=== PATIENT | female | born 1960 | race Caucasian/White ===

== ENCOUNTER 2020-02-04 09:10 | Outpatient (REF) | payer BC, OTHER, SELFPAY ==
[2020-02-04 12:00] LABS: Alanine Aminotransferase 19 U/L (0-31); Alkaline Phosphatase 93 U/L (39-117); Anion Gap 14 (12-20); Aspartate Amino Transferase 20 U/L (5-31); Bilirubin Total 1.4 mg/dL (0.0-1.0); Blood Urea Nitrogen 18 mg/dL (9-16); Calcium 9.3 mg/dL (8.4-10.2); Carbon Dioxide 25 mmol/L (22-29); Chloride 107 mmol/L (96-108); Cholesterol 170 mg/dL; Estimated Glomerular Filt Rate 57; Glucose Fasting 86 mg/dL (60-99); HDL Cholesterol 40 mg/dL; LDL Cholesterol Calculated 98 mg/dl; Potassium 4.3 mmol/l (3.3-5.1); Sodium 142 mmol/L (135-145); Total Protein 7.2 g/dL (6.5-8.0); Triglycerides 162 mg/dL; Uric Acid 7.2 mg/dL (2.4-5.7)
== END 2020-02-04 09:11 | disposition home or self-care (01) ==
LOC: HO.HMGCLDS 09:10
PROVIDERS: PCP Internal Medicine; Visit Provider Internal Medicine
DX: E78.5 Hyperlipidemia, unspecified (principal); Z00.01 Encounter for general adult medical examination with abnormal findings; F31.9 Bipolar disorder, unspecified; Z87.39 Personal history of other diseases of the musculoskeletal system and connective tissue; Z78.0 Asymptomatic menopausal state
CPT/HCPCS: 80053; 80061; 82306; 84550

== ENCOUNTER 2020-03-16 08:52 | Outpatient (REF) | payer BC, SELFPAY ==
[2020-03-16 12:03] LABS: Alanine Aminotransferase 37 U/L (0-31); Albumin Level 4.4 g/dL (3.5-5.0); Alkaline Phosphatase 92 U/L (39-117); Anion Gap 13 (12-20); Aspartate Amino Transferase 30 U/L (5-31); Blood Urea Nitrogen 22 mg/dL (9-16); Calcium 9.8 mg/dL (8.4-10.2); Carbon Dioxide 26 mmol/L (22-29); Chloride 108 mmol/L (96-108); Cholesterol 230 mg/dL; Estimated Glomerular Filt Rate 54; Glucose Fasting 92 mg/dL (60-99); HDL Cholesterol 44 mg/dL; LDL Cholesterol Calculated 148 mg/dl; Potassium 4.3 mmol/l (3.3-5.1); Sodium 143 mmol/L (135-145); Total Protein 7.6 g/dL (6.5-8.0); Triglycerides 192 mg/dL; Uric Acid 6.8 mg/dL (2.4-5.7)
[2020-03-16 12:10] LABS: Vitamin D 25-OH Total 20.4 ng/mL (>30)
== END 2020-03-16 08:53 | disposition home or self-care (01) ==
LOC: HO.HMGCLDS 08:52
PROVIDERS: PCP Internal Medicine; Visit Provider Internal Medicine
DX: E55.9 Vitamin D deficiency, unspecified (principal); E78.5 Hyperlipidemia, unspecified
CPT/HCPCS: 36415; 80053; 80061; 82306; 84550

== ENCOUNTER 2020-07-22 08:59 | Outpatient (REF) | payer OTHER, SELFPAY ==
[2020-07-22 12:20] LABS: Vitamin D 25-OH Total 30.3 ng/mL (>30)
[2020-07-22 12:21] LABS: Alanine Aminotransferase 18 U/L (0-31); Aspartate Amino Transferase 18 U/L (5-31); Cholesterol 189 mg/dL; HDL Cholesterol 40 mg/dL; LDL Cholesterol Calculated 107 mg/dl; Triglycerides 214 mg/dL; Uric Acid 7.5 mg/dL (2.4-5.7)
== END 2020-07-22 09:00 | disposition home or self-care (01) ==
LOC: HO.HMGCLDS 08:59
PROVIDERS: PCP Internal Medicine; Visit Provider Internal Medicine
DX: E55.9 Vitamin D deficiency, unspecified (principal); E78.5 Hyperlipidemia, unspecified; E79.0 Hyperuricemia without signs of inflammatory arthritis and tophaceous disease; Z78.0 Asymptomatic menopausal state
CPT/HCPCS: 36415; 80061; 82306; 84450; 84460; 84550

== ENCOUNTER 2020-09-29 08:02 | Outpatient (REF) | payer OTHER, SELFPAY ==
--- NOTE | ~2020-09-29 | MM_ITS ---
EXAMINATION: MM SCREENING DIGITAL BREAST TOMOSYNTHESIS, BILATERAL CLINICAL INFORMATION: Screening. Asymptomatic. The lifetime risk of breast cancer based on the Tyrer-Cuzick Model is 9%. COMPARISON: Mammography: 09/23/2019, 06/29/2018, 04/04/2017 TECHNIQUE: Digital breast tomosynthesis is performed in both the craniocaudal and mediolateral oblique views along with computer-aided detection (CAD). Synthesized 2D images are generated from the tomosynthesis. Additional right MLO view is provided. FINDINGS: There are scattered areas of fibroglandular density (ACR BI-RADS breast composition Category b). There are no significant masses, abnormal calcifications, or other abnormalities. Parenchymal pattern is similar to prior studies. The axilla and skin contours are unremarkable. MM/MM tomosynthesis screening BI IMPRESSION: No mammographic evidence of malignancy. ASSESSMENT: BI-RADS 1: Negative RECOMMENDATION: Routine annual mammography screening. This patient's information was entered into a reminder system with a target due date for their next mammogram.
== END 2020-09-29 08:03 | disposition home or self-care (01) ==
LOC: HO.MAMMO 08:02
PROVIDERS: Visit Provider Internal Medicine
DX: Z12.31 Encounter for screening mammogram for malignant neoplasm of breast (principal)
CPT/HCPCS: 77063; 77067

== ENCOUNTER 2021-01-17 08:46 | Outpatient (REF) | payer OTHER, SELFPAY ==
[2021-01-17 12:25] LABS: Alanine Aminotransferase 19 U/L (0-31); Anion Gap 16 (12-20); Aspartate Amino Transferase 21 U/L (5-31); Blood Urea Nitrogen 19 mg/dL (9-16); Calcium 9.6 mg/dL (8.4-10.2); Carbon Dioxide 21 mmol/L (22-29); Chloride 109 mmol/L (96-108); Estimated Glomerular Filt Rate 55; Glucose Fasting 97 mg/dL (60-99); Potassium 4.2 mmol/L (3.3-5.1); Sodium 142 mmol/L (135-145); Uric Acid 8.5 mg/dL (2.4-5.7)
[2021-01-17 12:29] LABS: Vitamin D 25-OH Total 27.7 ng/mL (>30)
== END 2021-01-17 08:47 | disposition home or self-care (01) ==
LOC: HO.HMGCLDS 08:46
PROVIDERS: PCP Internal Medicine; Visit Provider Internal Medicine
DX: Z00.01 Encounter for general adult medical examination with abnormal findings (principal); E78.5 Hyperlipidemia, unspecified; Z78.0 Asymptomatic menopausal state; E79.0 Hyperuricemia without signs of inflammatory arthritis and tophaceous disease; M1A.00X0 Idiopathic chronic gout, unspecified site, without tophus (tophi); I10 Essential (primary) hypertension
CPT/HCPCS: 36415; 80048; 82306; 84450; 84460; 84550

== ENCOUNTER 2021-06-03 08:16 | Outpatient (REF) | payer OTHER, MEDICAID, SELFPAY ==
[2021-06-03 11:54] LABS: Alanine Aminotransferase 19 U/L (0-31); Aspartate Amino Transferase 20 U/L (5-31); Cholesterol 173 mg/dL; HDL Cholesterol 38 mg/dL; LDL Cholesterol Calculated 102 mg/dl; Triglycerides 166 mg/dL
== END 2021-06-03 08:17 | disposition home or self-care (01) ==
LOC: HO.HMGCLDS 08:16
PROVIDERS: PCP Internal Medicine; Visit Provider Internal Medicine
DX: E78.5 Hyperlipidemia, unspecified (principal); E79.0 Hyperuricemia without signs of inflammatory arthritis and tophaceous disease; M1A.00X0 Idiopathic chronic gout, unspecified site, without tophus (tophi)
CPT/HCPCS: 36415; 80061; 84450; 84460

== ENCOUNTER 2021-10-03 07:42 | Outpatient (REF) | payer OTHER, MEDICAID, SELFPAY ==
--- NOTE | ~2021-10-03 | MM_ITS ---
EXAMINATION: MM SCREENING DIGITAL BREAST TOMOSYNTHESIS, BILATERAL CLINICAL INFORMATION: Screening. Asymptomatic. The lifetime risk of breast cancer based on the Tyrer-Cuzick Model is 7%. COMPARISON: Mammography: 09/29/2020, 09/23/2019, 06/29/2018 TECHNIQUE: Digital breast tomosynthesis is performed in both the craniocaudal and mediolateral oblique views along with computer-aided detection (CAD). Synthesized 2D images are generated from the tomosynthesis. FINDINGS: There are scattered areas of fibroglandular density (ACR BI-RADS breast composition Category b). There are no significant masses, abnormal calcifications, or other abnormalities. Parenchymal pattern is similar to prior studies. The axilla and skin contours are unremarkable. No significant changes. MM/MM tomosynthesis screening BI IMPRESSION: No mammographic evidence of malignancy. ASSESSMENT: BI-RADS 1: Negative RECOMMENDATION: Routine annual mammography screening. This patient's information was entered into a reminder system with a target due date for their next mammogram.
== END 2021-10-03 07:43 | disposition home or self-care (01) ==
LOC: HO.MAMMO 07:42
PROVIDERS: Visit Provider Internal Medicine
DX: Z12.31 Encounter for screening mammogram for malignant neoplasm of breast (principal)
CPT/HCPCS: 77063; 77067

== ENCOUNTER 2021-10-18 08:01 | Outpatient (REF) | payer OTHER, MEDICAID, SELFPAY ==
[2021-10-18 11:56] LABS: Alanine Aminotransferase 15 U/L (0-31); Anion Gap 15 (12-20); Aspartate Amino Transferase 17 U/L (5-31); Blood Urea Nitrogen 25 mg/dL (9-16); Calcium 9.4 mg/dL (8.4-10.2); Carbon Dioxide 24 mmol/L (22-29); Chloride 109 mmol/L (96-108); Cholesterol 180 mg/dL; Estimated Glomerular Filt Rate 53; Glucose Fasting 91 mg/dL (60-99); HDL Cholesterol 41 mg/dL; LDL Cholesterol Calculated 106 mg/dl; Potassium 4.1 mmol/L (3.3-5.1); Sodium 144 mmol/L (135-145); Triglycerides 166 mg/dL; Uric Acid 10.9 mg/dL (2.4-5.7)
== END 2021-10-18 08:02 | disposition home or self-care (01) ==
LOC: HO.HMGCLDS 08:01
PROVIDERS: PCP Internal Medicine; Visit Provider Internal Medicine
DX: E55.9 Vitamin D deficiency, unspecified (principal); E78.5 Hyperlipidemia, unspecified; F31.9 Bipolar disorder, unspecified; L71.9 Rosacea, unspecified; M10.9 Gout, unspecified; Z78.0 Asymptomatic menopausal state
CPT/HCPCS: 36415; 80048; 80061; 82306; 84450; 84460; 84550

== ENCOUNTER 2022-02-01 08:48 | Outpatient (REF) | payer OTHER, MEDICAID, SELFPAY ==
[2022-02-01 11:37] LABS: Alanine Aminotransferase 19 U/L (0-31); Aspartate Amino Transferase 20 U/L (5-31); Cholesterol 185 mg/dL; HDL Cholesterol 42 mg/dL; LDL Cholesterol Calculated 110 mg/dl; Triglycerides 168 mg/dL; Uric Acid 7.3 mg/dL (2.4-5.7)
== END 2022-02-01 08:49 | disposition home or self-care (01) ==
LOC: HO.HMGCLDS 08:48
PROVIDERS: PCP Internal Medicine; Visit Provider Internal Medicine
DX: E78.5 Hyperlipidemia, unspecified (principal); M10.9 Gout, unspecified
CPT/HCPCS: 36415; 80061; 84450; 84460; 84550

== ENCOUNTER 2022-05-24 09:04 | Outpatient (REF) | payer OTHER, MEDICAID, SELFPAY ==
--- NOTE | ~2022-05-24 | XR_ITS ---
EXAMINATION: XR CHEST CLINICAL INFORMATION: Bronchitis. COMPARISON: Chest radiograph dated 02/18/2014. TECHNIQUE: 2 views of the chest were obtained. FINDINGS: The lungs are clear. The cardiomediastinal silhouette is normal in size. There is no pleural effusion or pneumothorax. No acute osseous abnormality. XR/XR chest 2V IMPRESSION: No acute cardiopulmonary findings.
== END 2022-05-24 09:05 | disposition home or self-care (01) ==
LOC: HO.HMGCX 09:04
PROVIDERS: PCP Internal Medicine; Visit Provider Internal Medicine
DX: J20.9 Acute bronchitis, unspecified (principal)
CPT/HCPCS: 71046

== ENCOUNTER 2022-05-27 11:59 | Emergency (ER) | payer OTHER, MEDICAID, SELFPAY ==
--- NOTE | ~2022-05-27 | XR_ITS ---
EXAMINATION: XR CHEST CLINICAL INFORMATION: Cough and SOB. COMPARISON: None available. TECHNIQUE: Frontal view of the chest was obtained. FINDINGS: No significant abnormality is noted involving the heart, lungs, mediastinum, bony thorax or soft tissues. XR/XR chest 1V IMPRESSION: Unremarkable chest examination.
[2022-05-27 12:13] VITALS: BP 150/98; PULSE 57; RESP 20; TEMP 36.6; O2SAT 96; BMI 35.5
--- NOTE | 2022-05-27 12:13 | ED.URI ---
HPI - URI/Sore Throat General Chief Complaint: Upper Respiratory Symptoms <JEFFERSON Sood Last Filed: 05/27/22 12:17> Stated Complaint: coughing <JEFFERSON Sood Last Filed: 05/27/22 12:17> Time Seen by Provider: 05/27/22 12:52 <JEFFERSON Sood Last Filed: 05/27/22 12:17> History of Present Illness HPI Narrative: Patient complains of cough for 1 week with some chest tightness and wheezing and shortness of breath, she went to urgent care several days ago and was prescribed a Z-Son and prednisone but no inhaler, she comes today as symptoms have not improved She denies any chest pain no abdominal pain no nausea or vomiting no leg swelling no calf pain or tenderness no sore throat no difficulty breathing or speaking <JEFFERSON Sesay Last Filed: 05/27/22 19:06> Related Data Home Medications: Home Medications Medication Instructions Recorded Confirmed aripiprazole 20 mg tablet 20 mg PO BEDTIME PRN 03/18/20 05/24/22 Previous Rx's Medication Instructions Recorded atorvastatin 20 mg tablet 20 mg PO BEDTIME #90 tabs 07/11/21 allopurinol 300 mg tablet 300 mg PO DAILY #90 tabs 10/25/21 azithromycin 250 mg tablet See Rx Instructions PO .COMPLEX #6 05/24/22 tabs prednisone 20 mg tablet 60 mg PO DAILY #9 tabs 05/24/22 amoxicillin 875 mg-potassium 1 tab PO BID 5 days #10 tabs 05/27/22 clavulanate 125 mg tablet benzonatate 200 mg capsule 200 mg PO BID PRN cough #20 caps 05/27/22 prednisone 20 mg tablet 60 mg PO DAILY 3 days #9 tabs 05/27/22 <JEFFERSON Sood Last Filed: 05/27/22 12:17> Allergies/Adverse Reactions: Allergies Allergy/AdvReac Type Severity Reaction Status Date / Time sulfamethoxazole Allergy Intermediate RASH Verified 05/24/22 09:11 [From BACTRIM] lithium [LITHIUM] AdvReac Intermediate AFFECTS Verified 05/24/22 09:11 MY KIDNEYS <JEFFERSON Sood Last Filed: 05/27/22 12:17> [facility] Past Medical History Source: nursing notes reviewed <JEFFERSON Sesay Filed: 05/27/22 19:06> Medical History: Medical History (Updated 05/27/22 @ 19:00 by JEFFERSON Sesay) Acquired deformity of right foot Acquired foot deformity Bilateral impacted cerumen Bipolar disorder Dyslipidemia Gout Hyperuricemia Impacted cerumen of left ear Menopause Rosacea Vitamin D deficiency <JEFFERSON Sood - Last Filed: 05/27/22 12:17> Surgical History: Surgical History Hx of section Hx of cholecystectomy <JEFFERSON Sood - Last Filed: 05/27/22 12:17> Family History Family History: Family History Father Alzheimer disease Mother Cancer <JEFFERSON Sood - Last Filed: 05/27/22 12:17> Social History Social History: Social History Housing: Condominium Alcohol intake: never Patient Tobacco Use Status: Never used Tobacco e-Cigarette/Vaping Use: Never Used Second Hand Smoke Exposure: No Advance Directives: No Advance Directives Information Provided: Yes service: No Current occupational status: employed 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 Current occupational exposures/hazards: No Cognitive needs: No Hearing needs: No Vision needs: No <JEFFERSON Sood - Last Filed: 05/27/22 12:17> Physical Exam Vital Signs: Vital Signs: Last Vital Signs Temp 97.6 F 05/27/22 16:59 Pulse 66 05/27/22 16:59 Resp 16 05/27/22 16:59 BP 137/60 05/27/22 16:59 Pulse Ox 98 05/27/22 16:59 O2 Del Method Room Air 05/27/22 16:59 BMI result Body Mass Index 35.5 <JEFFERSON Sood - Last Filed: 05/27/22 12:17> Vital Signs: Last Vital Signs Temp 97.6 F 05/27/22 16:59 Pulse 66 05/27/22 16:59 Resp 16 05/27/22 16:59 BP 137/60 05/27/22 16:59 Pulse Ox 98 05/27/22 16:59 O2 Del Method Room Air 05/27/22 16:59 BMI result Body Mass Index 35.5 <JEFFERSON Sesay - Last Filed: 05/27/22 19:06> General appearance is no acute distress, speaking full sentences The eyes no redness or discharge The sinuses are nontender The pharynx no redness swelling or exudate, membranes are moist Neck is supple Chest had scattered wheezes and of rhonchi, this exam was done after 1 initial treatment, breath sounds were mildly decreased bilaterally Heart no murmur auscultated Abdomen soft nontender Extremities no calf tenderness or swelling, no pedal edema Extremities full range of motion x4 Neuro gait and balance are normal, interaction comprehension expression normal, motor is 5/5 x4, no focal deficits <JEFFERSON Sesay - Last Filed: 05/27/22 19:06> Course Course Course Narrative: RME-- 62yo F w/PMHx gout, HLD, recent bronchitis started on Prednisone and Azithromax s/p being evaluated in walk-in clinic on 05/24 complaining of persistent cough, chest discomfort when coughing, and SOB Coarse lung sounds throughout. Satting 96% on room air CXR on 05/24 without pneumonia, treated for bronchitis COVID/flu, repeat CXR, DuoNeb ordered <JEFFERSON Sood - Last Filed: 05/27/22 12:17> RME-- 62yo F w/PMHx gout, HLD, recent bronchitis started on Prednisone and Azithromax s/p being evaluated in walk-in clinic on 05/24 complaining of persistent cough, chest discomfort when coughing, and SOB Coarse lung sounds throughout. Satting 96% on room air CXR on 05/24 without pneumonia, treated for bronchitis COVID/flu, repeat CXR, DuoNeb ordered Patient with complaint of chest tightness shortness of breath and cough not improved after a Z-Son and prednisone was given a DuoNeb from triage, I saw her after that and she still had scattered small wheezes, slightly decreased air entry bilaterally and some rhonchi so hour long neb was given with some improvement As she remains short of breath labs were checked, D-dimer was 219, below the cutoff range so PE very unlikely, no acute emergent findings on chemistries, troponin was less than 3.5, and description of shortness of breath associated with coughing and sputum unlikely to be cardiac EKG showed new right bundle branch, and some PACs, but no evidence of acute ischemia no ST elevations WBC was mildly elevated at 10.9 otherwise CBC unremarkable BNP was mildly elevated, but no evidence of heart failure or acute coronary event now no edema, no CHF findings on x-ray Chest x-ray was without acute findings Visit notes from prior visit were reviewed with symptoms very similar to today, as there is some resistance to Zithromax I added 5 days of Augmentin, she is taking prednisone I wrote for an inhaler and I gave her an additional work note and well-appearing patient ambulating easily speaking full sentences no respiratory distress is discharged <JEFFERSON Sesay - Last Filed: 05/27/22 19:06> Medications Administered Discontinued Medications Generic Name Dose Route Start Last Admin Trade Name Freq PRN Reason Stop Dose Admin Albuterol Sulfate 2.5 mg/ 0 mg 05/27/22 12:15 05/27/22 12:49 Ipratropium [place] 0.5 mg INHALE 05/27/22 12:16 2.5 each ONCE ONE Administration Albuterol Sulfate 10 mg/ 0 mg 05/27/22 13:42 05/27/22 14:10 Ipratropium [place] 0.5 mg INHALE 05/27/22 13:43 2.5 each ONCE ONE Administration <JEFFERSON Sood - Last Filed: 05/27/22 12:17> Medications Administered Discontinued Medications Generic Name Dose Route Start Last Admin Trade Name Freq PRN Reason Stop Dose Admin Albuterol Sulfate 2.5 mg/ 0 mg 05/27/22 12:15 05/27/22 12:49 Ipratropium [place] 0.5 mg INHALE 05/27/22 12:16 2.5 each ONCE ONE Administration Albuterol Sulfate 10 mg/ 0 mg 05/27/22 13:42 05/27/22 14:10 Ipratropium [place] 0.5 mg INHALE 05/27/22 13:43 2.5 each ONCE ONE Administration <JEFFERSON Sesay - Last Filed: 05/27/22 19:06> Medical Decision Making Lab Data MDM Lab Attestation statement: I reviewed the patient's lab results. <JEFFERSON Sesay - Last Filed: 05/27/22 19:06> Result Diagrams: 05/27/22 16:03 05/27/22 17:57 <JEFFERSON Sood - Last Filed: 05/27/22 12:17> Labs: Lab Results 05/27/22 05/27/22 05/27/22 Range/Units 12:24 12:24 16:03 WBC 10.9 H (4.8-10.8) X10*3/uL RBC 4.61 (4.20-5.50) X10*6/uL Hgb 12.4 (12.0-16.0) g/dl Hct 38.7 (37.0-47.0) % MCV 83.9 (80.0-98.0) fL MCH 26.9 L (27.0-33.0) pg MCHC 32.0 (31.0-35.0) g/dl RDW 12.8 (11.0-16.0) % Plt Count 270 (160-400) X10*3/uL MPV 9.8 (9.4-12.3) fL Immature Gran % (Auto) 0.5 H (0.0-0.4) % Neut % (Auto) 63.1 (45-73) % Lymph % (Auto) 32.1 (20-40) % [place] % (Auto) 3.9 (2-11) % Eos % (Auto) 0.3 (0-4) % Baso % (Auto) 0.1 (0-2) % Lymph # (Auto) 3.5 (1.2-4.9) X10*3/uL [place] # (Auto) 0.4 (0.1-1.2) X10*3/uL Eos # (Auto) 0.0 (0.0-0.4) X10*3/uL Baso # (Auto) 0.0 (0.0-0.2) X10*3/uL Abs Immat Gran (auto) 0.06 H (0.00-0.03) X10*3/uL Absolute Neuts (auto) 6.9 (2.0-8.3) x10*3/uL Absolute Nucleated RBC 0.000 (0.0-0.012) X10*3/uL Nucleated RBC % (auto) 0.0 (0.0-0.2) /100WBC D-Dimer High Sensitivty NG/ML Sodium Potassium Chloride Carbon Dioxide Anion Gap BUN Creatinine Estim Creat Clear Calc Estimated GFR Random Glucose Calcium Troponin I High Sens B-Natriuretic Peptide (<100) pg/mL COVID-19 (JUANA) Negative (Negative) COVID-19 Clin Com See Note Influenza Type A (FABIOLA) Negative (Negative) Influenza Type B (FABIOLA) Negative (Negative) Influenza A & B Note See Note 05/27/22 05/27/22 05/27/22 Range/Units 16:03 16:03 16:03 WBC (4.8-10.8) X10*3/uL RBC (4.20-5.50) X10*6/uL Hgb (12.0-16.0) g/dl Hct (37.0-47.0) % MCV (80.0-98.0) fL MCH (27.0-33.0) pg MCHC (31.0-35.0) g/dl RDW (11.0-16.0) % Plt Count (160-400) X10*3/uL MPV (9.4-12.3) fL Immature Gran % (Auto) (0.0-0.4) % Neut % (Auto) (45-73) % Lymph % (Auto) (20-40) % [place] % (Auto) (2-11) % Eos % (Auto) (0-4) % Baso % (Auto) (0-2) % Lymph # (Auto) (1.2-4.9) X10*3/uL [place] # (Auto) (0.1-1.2) X10*3/uL Eos # (Auto) (0.0-0.4) X10*3/uL Baso # (Auto) (0.0-0.2) X10*3/uL Abs Immat Gran (auto) (0.00-0.03) X10*3/uL Absolute Neuts (auto) (2.0-8.3) x10*3/uL Absolute Nucleated RBC (0.0-0.012) X10*3/uL Nucleated RBC % (auto) (0.0-0.2) /100WBC D-Dimer High Sensitivty 219 NG/ML Sodium Cancelled Potassium Cancelled Chloride Cancelled Carbon Dioxide Cancelled Anion Gap Cancelled BUN Cancelled Creatinine Cancelled Estim Creat Clear Calc Cancelled Estimated GFR Cancelled Random Glucose Cancelled Calcium Cancelled Troponin I High Sens Cancelled B-Natriuretic Peptide (<100) pg/mL COVID-19 (JUANA) (Negative) COVID-19 Clin Com Influenza Type A (FABIOLA) (Negative) Influenza Type B (FABIOLA) (Negative) Influenza A & B Note 05/27/22 05/27/22 05/27/22 Range/Units 16:03 17:57 17:57 WBC (4.8-10.8) X10*3/uL RBC (4.20-5.50) X10*6/uL Hgb (12.0-16.0) g/dl Hct (37.0-47.0) % MCV (80.0-98.0) fL MCH (27.0-33.0) pg MCHC (31.0-35.0) g/dl RDW (11.0-16.0) % Plt Count (160-400) X10*3/uL MPV (9.4-12.3) fL Immature Gran % (Auto) (0.0-0.4) % Neut % (Auto) (45-73) % Lymph % (Auto) (20-40) % [place] % (Auto) (2-11) % Eos % (Auto) (0-4) % Baso % (Auto) (0-2) % Lymph # (Auto) (1.2-4.9) X10*3/uL [place] # (Auto) (0.1-1.2) X10*3/uL Eos # (Auto) (0.0-0.4) X10*3/uL Baso # (Auto) (0.0-0.2) X10*3/uL Abs Immat Gran (auto) (0.00-0.03) X10*3/uL Absolute Neuts (auto) (2.0-8.3) x10*3/uL Absolute Nucleated RBC (0.0-0.012) X10*3/uL Nucleated RBC % (auto) (0.0-0.2) /100WBC D-Dimer High Sensitivty NG/ML Sodium 146 H Potassium 3.3 Chloride 112 H Carbon Dioxide 22 Anion Gap 15 BUN 25 H Creatinine 1.07 Estim Creat Clear Calc 64.9 Estimated GFR 52 Random Glucose 101 Calcium 9.2 Troponin I High Sens < 3.5 B-Natriuretic Peptide 128 H (<100) pg/mL COVID-19 (JUANA) (Negative) COVID-19 Clin Com Influenza Type A (FABIOLA) (Negative) Influenza Type B (FABIOLA) (Negative) Influenza A & B Note <JEFFERSON Sood - Last Filed: 05/27/22 12:17> Lab Results 05/27/22 05/27/22 05/27/22 Range/Units 12:24 12:24 16:03 WBC 10.9 H (4.8-10.8) X10*3/uL RBC 4.61 (4.20-5.50) X10*6/uL Hgb 12.4 (12.0-16.0) g/dl Hct 38.7 (37.0-47.0) % MCV 83.9 (80.0-98.0) fL MCH 26.9 L (27.0-33.0) pg MCHC 32.0 (31.0-35.0) g/dl RDW 12.8 (11.0-16.0) % Plt Count 270 (160-400) X10*3/uL MPV 9.8 (9.4-12.3) fL Immature Gran % (Auto) 0.5 H (0.0-0.4) % Neut % (Auto) 63.1 (45-73) % Lymph % (Auto) 32.1 (20-40) % [place] % (Auto) 3.9 (2-11) % Eos % (Auto) 0.3 (0-4) % Baso % (Auto) 0.1 (0-2) % Lymph # (Auto) 3.5 (1.2-4.9) X10*3/uL [place] # (Auto) 0.4 (0.1-1.2) X10*3/uL Eos # (Auto) 0.0 (0.0-0.4) X10*3/uL Baso # (Auto) 0.0 (0.0-0.2) X10*3/uL Abs Immat Gran (auto) 0.06 H (0.00-0.03) X10*3/uL Absolute Neuts (auto) 6.9 (2.0-8.3) x10*3/uL Absolute Nucleated RBC 0.000 (0.0-0.012) X10*3/uL Nucleated RBC % (auto) 0.0 (0.0-0.2) /100WBC D-Dimer High Sensitivty NG/ML Sodium Potassium Chloride Carbon Dioxide Anion Gap BUN Creatinine Estim Creat Clear Calc Estimated GFR Random Glucose Calcium Troponin I High Sens B-Natriuretic Peptide (<100) pg/mL COVID-19 (JUANA) Negative (Negative) COVID-19 Clin Com See Note Influenza Type A (FABIOLA) Negative (Negative) Influenza Type B (FABIOLA) Negative (Negative) Influenza A & B Note See Note 05/27/22 05/27/22 05/27/22 Range/Units 16:03 16:03 16:03 WBC (4.8-10.8) X10*3/uL RBC (4.20-5.50) X10*6/uL Hgb (12.0-16.0) g/dl Hct (37.0-47.0) % MCV (80.0-98.0) fL MCH (27.0-33.0) pg MCHC (31.0-35.0) g/dl RDW (11.0-16.0) % Plt Count (160-400) X10*3/uL MPV (9.4-12.3) fL Immature Gran % (Auto) (0.0-0.4) % Neut % (Auto) (45-73) % Lymph % (Auto) (20-40) % [place] % (Auto) (2-11) % Eos % (Auto) (0-4) % Baso % (Auto) (0-2) % Lymph # (Auto) (1.2-4.9) X10*3/uL [place] # (Auto) (0.1-1.2) X10*3/uL Eos # (Auto) (0.0-0.4) X10*3/uL Baso # (Auto) (0.0-0.2) X10*3/uL Abs Immat Gran (auto) (0.00-0.03) X10*3/uL Absolute Neuts (auto) (2.0-8.3) x10*3/uL Absolute Nucleated RBC (0.0-0.012) X10*3/uL Nucleated RBC % (auto) (0.0-0.2) /100WBC D-Dimer High Sensitivty 219 NG/ML Sodium Cancelled Potassium Cancelled Chloride Cancelled Carbon Dioxide Cancelled Anion Gap Cancelled BUN Cancelled Creatinine Cancelled Estim Creat Clear Calc Cancelled Estimated GFR Cancelled Random Glucose Cancelled Calcium Cancelled Troponin I High Sens Cancelled B-Natriuretic Peptide (<100) pg/mL COVID-19 (JUANA) (Negative) COVID-19 Clin Com Influenza Type A (FABIOLA) (Negative) Influenza Type B (FABIOLA) (Negative) Influenza A & B Note 05/27/22 05/27/22 05/27/22 Range/Units 16:03 17:57 17:57 WBC (4.8-10.8) X10*3/uL RBC (4.20-5.50) X10*6/uL Hgb (12.0-16.0) g/dl Hct (37.0-47.0) % MCV (80.0-98.0) fL MCH (27.0-33.0) pg MCHC (31.0-35.0) g/dl RDW (11.0-16.0) % Plt Count (160-400) X10*3/uL MPV (9.4-12.3) fL Immature Gran % (Auto) (0.0-0.4) % Neut % (Auto) (45-73) % Lymph % (Auto) (20-40) % [place] % (Auto) (2-11) % Eos % (Auto) (0-4) % Baso % (Auto) (0-2) % Lymph # (Auto) (1.2-4.9) X10*3/uL [place] # (Auto) (0.1-1.2) X10*3/uL Eos # (Auto) (0.0-0.4) X10*3/uL Baso # (Auto) (0.0-0.2) X10*3/uL Abs Immat Gran (auto) (0.00-0.03) X10*3/uL Absolute Neuts (auto) (2.0-8.3) x10*3/uL Absolute Nucleated RBC (0.0-0.012) X10*3/uL Nucleated RBC % (auto) (0.0-0.2) /100WBC D-Dimer High Sensitivty NG/ML Sodium 146 H Potassium 3.3 Chloride 112 H Carbon Dioxide 22 Anion Gap 15 BUN 25 H Creatinine 1.07 Estim Creat Clear Calc 64.9 Estimated GFR 52 Random Glucose 101 Calcium 9.2 Troponin I High Sens < 3.5 B-Natriuretic Peptide 128 H (<100) pg/mL COVID-19 (JUANA) (Negative) COVID-19 Clin Com Influenza Type A (FABIOLA) (Negative) Influenza Type B (FABIOLA) (Negative) Influenza A & B Note <JEFFERSON Sesay - Last Filed: 05/27/22 19:06> Discharge Plan Discharge Clinical Impression: Bronchitis, Wheezing <JEFFERSON Sood - Last Filed: 05/27/22 12:17> Patient Disposition: Home, Self-Care <JEFFERSON Sood - Last Filed: 05/27/22 12:17> Additional Instructions: Our workup today did not find any dangerous cause fever wheezing and coughing, it is likely either a viral infection or possibly a bacterial bronchitis so we are adding extra coverage with Augmentin to your Zithromax Finish the Zithromax and do 5 more days of the Augmentin Follow with your doctor if symptoms do not improve next week In addition you should follow with your doctor for a mildly elevated BNP, which can happen with chest colds and infections Also you had a do right bundle branch on EKG see you may need a referral to a cattle sticker for an echocardiogram and further evaluation These are incidental findings not related to today's visit Return any time for difficulty breathing, chest pain, fainting or feeling faint any worse condition or any concerns Take probiotics available [id number] which help prevent antibiotic associated diarrhea <JEFFERSON Sood - Last Filed: 05/27/22 12:17> Prescriptions: New amoxicillin-pot clavulanate 875-125 mg tablet 1 tab PO BID 5 Days Qty: 10 0RF benzonatate 200 mg capsule 200 mg PO BID PRN (Reason: cough) Qty: 20 0RF prednisone 20 mg tablet 60 mg PO DAILY 3 Days Qty: 9 0RF No Action atorvastatin 20 mg tablet 20 mg PO BEDTIME Qty: 90 3RF aripiprazole 20 mg tablet 20 mg PO BEDTIME PRN allopurinol 300 mg tablet 300 mg PO DAILY Qty: 90 1RF azithromycin 250 mg tablet See Rx Instructions PO .COMPLEX Qty: 6 0RF Rx Instructions: take 500 mg today (day 1), then 250 mg for 4 days (days 2-5) PO prednisone 20 mg tablet 60 mg PO DAILY Qty: 9 0RF <JEFFERSON Sood - Last Filed: 05/27/22 12:17> Stand Alone Forms: Work/School Release <JEFFERSON Sood - Last Filed: 05/27/22 12:17>
[2022-05-27 12:47] LABS: IDNOW Serial# 9DB6401D
[2022-05-27 12:48] LABS: COVID-19 Test Negative (Negative); IDNOW Serial# BCCEAD1C; Influenza A Negative (Negative); Influenza B2 Negative (Negative)
[2022-05-27 12:49] VITALS: PULSE 59; RESP 18; O2SAT 99
[2022-05-27 13:57] VITALS: BP 131/69; PULSE 61; RESP 15; TEMP 36.4; O2SAT 96
--- NOTE | 2022-05-27 15:38 | ECG_ITS ---
Test Reason : SHORTNESS OF BREATH Blood Pressure : / mmHG Vent. Rate : 065 BPM Atrial Rate : 065 BPM P-R Int : 140 ms QRS Dur : 154 ms QT Int : 464 ms P-R-T Axes : 048 -15 008 degrees QTc Int : 482 ms Sinus rhythm with Premature atrial complexes Right bundle branch block Abnormal ECG When compared with ECG of 30-NOV-2014 10:39, Premature atrial complexes are now Present Right bundle branch block is now Present Minimal criteria for Anterior infarct are no longer Present Referred By: Chandra Monroe Electronically Signed By:MARTY CEDEÑO MD
[2022-05-27 16:07] LABS: MANUAL DIFF FLAG NO
[2022-05-27 16:09] LABS: Basophils Percent Auto 0.1 % (0-2); Eosinophils Percent Auto 0.3 % (0-4); Hematocrit 38.7 % (37.0-47.0); Hemoglobin 12.4 g/dl (12.0-16.0); Imm Gran Abs Auto 0.06 X10*3/uL (0.00-0.03); Imm Gran Pct Auto 0.5 % (0.0-0.4); Lymphocytes Absolute Auto 3.5 X10*3/uL (1.2-4.9); Lymphocytes Percent Auto 32.1 % (20-40); Mean Corpuscular Hemoglobin 26.9 pg (27.0-33.0); Mean Corpuscular Volume 83.9 fL (80.0-98.0); Mean Platelet Volume 9.8 fL (9.4-12.3); Monocytes Absolute Auto 0.4 X10*3/uL (0.1-1.2); Monocytes Percent Auto 3.9 % (2-11); Neutrophils Absolute Auto 6.9 x10*3/uL (2.0-8.3); Neutrophils Percent Auto 63.1 % (45-73); Platelet Count 270 X10*3/uL (160-400); Red Blood Count 4.61 X10*6/uL (4.20-5.50); Red Cell Distribution Width 12.8 % (11.0-16.0); White Blood Count 10.9 X10*3/uL (4.8-10.8)
[2022-05-27 16:16] LABS: D Dimer High Sensitivity 219 NG/ML
[2022-05-27 16:32] LABS: B Type Natriuretic Peptide 128 pg/mL (<100)
[2022-05-27 16:59] VITALS: BP 137/60; PULSE 66; RESP 16; TEMP 36.4; O2SAT 98
[2022-05-27 18:26] LABS: Anion Gap 15 (12-20); Blood Urea Nitrogen 25 mg/dL (9-16); Calcium 9.2 mg/dL (8.4-10.2); Carbon Dioxide 22 mmol/L (22-29); Chloride 112 mmol/L (96-108); Creatinine Clr Calc Pharmacy 64.9; Estimated Glomerular Filt Rate 52; Glucose Random 101 mg/dL (60-115); Potassium 3.3 mmol/L (3.3-5.1); Sodium 146 mmol/L (135-145)
[2022-05-27 18:35] LABS: Troponin-I High Sensitivity < 3.5 ng/L (<3.5-17.0)
[2022-05-27] MEDS: Amoxicillin/Potassium Clav 875 MG TABLET PO (19:11)
== END 2022-05-27 19:26 | disposition home or self-care (01) ==
PROVIDERS: Physician Assistant; Physician Assistant Medical; Emergency Provider Emergency Medicine; PCP Internal Medicine
DX: J40 Bronchitis, not specified as acute or chronic (principal); R06.2 Wheezing; R06.02 Shortness of breath; I45.10 Unspecified right bundle-branch block; Z20.822 Contact with and (suspected) exposure to COVID-19; E78.5 Hyperlipidemia, unspecified; Z79.02 Long term (current) use of antithrombotics/antiplatelets; Z79.899 Other long term (current) drug therapy
CPT/HCPCS: 36415; 71045; 80048; 83880; 84484; 85025; 85379; 87502; 87635; 93005; 94640; 99284

== ENCOUNTER 2022-06-02 07:44 | Outpatient (REF) | payer OTHER, MEDICAID, SELFPAY ==
[2022-06-02 11:40] LABS: MANUAL DIFF FLAG NO
[2022-06-02 11:58] LABS: Basophils Absolute Auto 0.1 X10*3/uL (0.0-0.2); Basophils Percent Auto 0.8 % (0-2); Eosinophils Absolute Auto 0.4 X10*3/uL (0.0-0.4); Eosinophils Percent Auto 3.2 % (0-4); Hematocrit 41.6 % (37.0-47.0); Hemoglobin 13.5 g/dl (12.0-16.0); Imm Gran Abs Auto 0.58 X10*3/uL (0.00-0.03); Lymphocytes Absolute Auto 3.6 X10*3/uL (1.2-4.9); Lymphocytes Percent Auto 30.7 % (20-40); Mean Corpuscular HGB Conc 32.5 g/dl (31.0-35.0); Mean Corpuscular Hemoglobin 27.8 pg (27.0-33.0); Mean Corpuscular Volume 85.6 fL (80.0-98.0); Mean Platelet Volume 9.9 fL (9.4-12.3); Monocytes Absolute Auto 0.5 X10*3/uL (0.1-1.2); Neutrophils Absolute Auto 6.6 x10*3/uL (2.0-8.3); Neutrophils Percent Auto 56.3 % (45-73); Platelet Count 314 X10*3/uL (160-400); Red Blood Count 4.86 X10*6/uL (4.20-5.50); Red Cell Distribution Width 13.2 % (11.0-16.0); White Blood Count 11.7 X10*3/uL (4.8-10.8)
[2022-06-02 12:37] LABS: Alanine Aminotransferase 15 U/L (0-31); Albumin Level 3.6 g/dL (3.5-5.0); Alkaline Phosphatase 73 U/L (39-117); Anion Gap 12 (12-20); Aspartate Amino Transferase 17 U/L (5-31); Bilirubin Total 1.1 mg/dL (0.0-1.0); Blood Urea Nitrogen 17 mg/dL (9-16); Calcium 9.5 mg/dL (8.4-10.2); Carbon Dioxide 28 mmol/L (22-29); Chloride 108 mmol/L (96-108); Cholesterol 187 mg/dL; Estimated Glomerular Filt Rate 52; Glucose Fasting 86 mg/dL (60-99); HDL Cholesterol 38 mg/dL; LDL Cholesterol Calculated 86 mg/dl; Sodium 144 mmol/L (135-145); Total Protein 6.6 g/dL (6.5-8.0); Triglycerides 318 mg/dL; Uric Acid 5.7 mg/dL (2.4-5.7)
[2022-06-02 12:54] LABS: TSH reflex Free T4 5.24 uIU/mL (0.32-4.0); Vitamin D 25-OH Total 20.3 ng/mL (>30)
[2022-06-02 13:26] LABS: Free T4 (Free Thyroxine) 1.56 ng/dL (0.71-1.85)
== END 2022-06-02 07:45 | disposition home or self-care (01) ==
LOC: HO.HMGCLDS 07:44
PROVIDERS: PCP Internal Medicine; Visit Provider Internal Medicine
DX: E55.9 Vitamin D deficiency, unspecified (principal); E78.5 Hyperlipidemia, unspecified; E79.0 Hyperuricemia without signs of inflammatory arthritis and tophaceous disease; F31.9 Bipolar disorder, unspecified; Z51.81 Encounter for therapeutic drug level monitoring; Z79.899 Other long term (current) drug therapy; Z78.0 Asymptomatic menopausal state
CPT/HCPCS: 36415; 80053; 80061; 82306; 84439; 84443; 84550; 85025

== ENCOUNTER 2022-06-06 11:09 | Outpatient (AMB) | payer OTHER, MEDICAID, SELFPAY ==
[2022-06-06 11:45] VITALS: BP 102/60; PULSE 62; O2SAT 96; BMI 39.0
--- NOTE | 2022-06-06 11:45 | MHC.PC.OV ---
Vital Signs 06/06/22 11:45 Height 5 ft 6 in Weight 242 lb BMI 39.0 BP 102/60 Blood Pressure Location Rt brachial Position Sitting Pulse 62 Pulse Source Pulse Oximeter Pulse Oximetry (%) 96 Oxygen Delivery Method Room Air Intake Visit Reasons: Follow-up walk-in visit Intake Note: Pt is here today after recent [facility] visit for bronchitis on 05/27/22 Allergies sulfamethoxazole [From BACTRIM] Allergy (Intermediate, Verified 10/02/22 08:12) RASH lithium [LITHIUM] Adverse Reaction (Intermediate, Verified 10/02/22 08:12) AFFECTS MY KIDNEYS Medication List - Last Reconciled 06/06/22 by Paty Centeno MD albuterol sulfate 90 mcg/actuation (Ventolin HFA) 1 inh inhalation QID PRN allopurinol 300 mg PO DAILY aripiprazole 20 mg PO BEDTIME PRN atorvastatin 20 mg PO BEDTIME benzonatate 200 mg PO BID PRN Tobacco use date assessed: 06/06/22 HPI HPI Comments History of Present Illness Details 62-year-old lady here today for follow-up after recent visit to the walk-in clinic treated for bronchitis. She is feeling better, but still gets intermittent episodes of wheezing and shortness of breath on moderate exertion. She was prescribed benzonatate Perles which she states has not really been helping much. She is also due for recheck on her lipids, and has history of gout. Has not had any recent attacks, compliant with taking her medications and following recommended diet [facility] Medical History (Updated 10/02/22 @ 08:23 by Paty Centeno MD) Acquired deformity of right foot Bipolar disorder Gout Hyperuricemia Menopause Mixed dyslipidemia Rosacea Vitamin D deficiency Surgical History Hx of section Hx of cholecystectomy Family History Father Alzheimer disease Mother Cancer Social History Housing: Condominium Alcohol intake: never Patient Tobacco Use Status: Never used Tobacco e-Cigarette/Vaping Use: Never Used Second Hand Smoke Exposure: No service: No Current occupational status: employed 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 Current occupational exposures/hazards: No Cognitive needs: No Hearing needs: No Vision needs: Yes Questionnaire Thrive Questionnaire Date Thrive assessed: 06/06/22 I am a: Patient What is your living situation today?: I have a steady place to live Within the past 12 months, did the food you bought not last and you didn't have the money to get more?: Never true Within the past 12 months, did you worry whether your food would run out before you got money to buy more?: Never true Do you have trouble paying for medicines?: No Do you have trouble getting transportation to medical appointments?: No Do you have trouble paying your heating and electricity bill?: No Do you have trouble taking care of your child, family member or friend?: No Do you have trouble with day-to-day activities such as bathing, preparing meals, shopping, managing finances, etc.?: No Are you currently unemployed and looking for a job?: No Are you interested in more education?: No AUDIT C Alcohol Use Questionnaire (AUDIT-C) 1. How often do you have a drink containing alcohol?: Never Total Score: 0 DEVON-7 AMB Questionnaire DEVON-7 Date DEVON - 7 assessed: 06/09/21 Source: Developed by Drs. Kenneth Reed, Nati Atkinson, Marvin Loco and colleagues, with an educational scott from [employer] Review of Systems Const Reports no additional complaints Card Denies chest pain, Denies rapid heart rate and Denies irregular heart rhythm Resp Reports as per HPI, Denies pain on inspiration and Denies pain with cough GI Reports no additional complaints Reports no additional complaints Musc Reports no additional complaints Physical exam (Primary Care) Vital Signs: Last Vital Signs Pulse 62 06/06/22 11:45 BP 102/60 06/06/22 11:45 Pulse Ox 96 06/06/22 11:45 Oxygen Delivery Method Room Air 06/06/22 11:45 BMI result Body Mass Index 39.0 BMI Assessment/Plan discussion: High BMI High, discussed plan: lifestyle, weight reduction, dietary and physical activity Tobacco/Smoking Status: Tobacco use Status Tobacco use date assessed 06/06/22 06/06/22 11:54 Patient Tobacco Use Status Never used Tobacco 06/06/22 11:54 e-Cigarette/Vaping Use Never Used 04/04/23 11:54 Thrive Assessment: Date of Thrive Assessment Date Thrive assessed 06/06/22 06/06/22 11:54 Const General: cooperative, comfortable and no acute distress Nutritional Appearance: obese Orientation/consciousness: patient oriented x3 Limitations: no limitations HENMT Ears: external ears normal General nose exam: Normal external nose present Face and sinus: Yes face symmetric Mouth: Normal oral and palatal mucosa present Neck Neck: Yes full ROM, Yes no lymphadenopathy and Yes supple Resp Auscultation: wheezes (Occasional inspiratory wheezing bilateral) and bronchial breath sounds Cardio Rate: regular rate Rhythm: regular rhythm Heart sounds: S1 normal heart sound present and S2 normal heart sound present GI Inspection: Yes obesity Palpation (GI): Soft to palpation, nontender, no guarding and no masses Auscultation: normal bowel sounds Neuro General: patient oriented x3 Extrem Other: Right foot slightly turned inwards, no gross bone deformity, no joint swelling Office Procedures Nebulizer Treatment Nebulizer Treatment [id number]/MDI RX initial, or Nebulizer Subsequent Treatment 1 Office Meds ipratropium-albuterol 0.5 mg-3 mg(2.5 mg base)/3 mL Performing Provider: Paty Centeno MD Administered by: Liza Boswell CMA on 06/06/22 12:58 Dose Route Admin Location Lot Number Expiration Date [place] [employer] 0.5 mL inhalation [id number] 05/03/23 8822-0463-08 [employer] 3 mL inhalation [id number] 05/03/23 7730-0131-16 [employer] Assessment and Plan Assessment & Plan (1) Acute bronchitis: Code(s): J20.9 - Acute bronchitis, unspecified Plan: Nebulizer treatment given with DuoNeb, with good results, started on Symbicort 160-4.5 mcg per inhalation, start with 1 inhalation twice a day, gargle mouth after use, may increase dose to 2 inhalations twice a day as needed. Use spacer (2) Mixed dyslipidemia: Code(s): E78.2 - Mixed hyperlipidemia Plan: Fasting lipid panel ordered, currently on atorvastatin (3) Gout: Code(s): M10.9 - Gout, unspecified Qualifiers: Chronicity: chronic Gout etiology: idiopathic Gout site: unspecified site Presence of tophus: without tophus Qualified Code(s): M1A.00X0 - Idiopathic chronic gout, unspecified site, without tophus (tophi) Plan: Uric acid level ordered, currently on allopurinol Orders: Orders Alanine Aminotransferase 09/25/22 E78.2 - Mixed hyperlipidemia, J20.9 - Acute bronchitis, unspecified, E79.0 - Hyperuricemia without signs of inflammatory arthritis and tophaceous disease, M10.9 - Gout, unspecified, Z78.0 - Asymptomatic menopausal state Aspartate Amino Transferase 09/25/22 E78.2 - Mixed hyperlipidemia, J20.9 - Acute bronchitis, unspecified, E79.0 - Hyperuricemia without signs of inflammatory arthritis and tophaceous disease, M10.9 - Gout, unspecified, Z78.0 - Asymptomatic menopausal state Lipid Panel 09/25/22 E78.2 - Mixed hyperlipidemia, J20.9 - Acute bronchitis, unspecified, E79.0 - Hyperuricemia without signs of inflammatory arthritis and tophaceous disease, M10.9 - Gout, unspecified, Z78.0 - Asymptomatic menopausal state Basic Metabolic Panel Fasting 09/25/22 E78.2 - Mixed hyperlipidemia, J20.9 - Acute bronchitis, unspecified, E79.0 - Hyperuricemia without signs of inflammatory arthritis and tophaceous disease, M10.9 - Gout, unspecified, Z78.0 - Asymptomatic menopausal state Vitamin D 25-OH Total 09/25/22 E78.2 - Mixed hyperlipidemia, J20.9 - Acute bronchitis, unspecified, E79.0 - Hyperuricemia without signs of inflammatory arthritis and tophaceous disease, M10.9 - Gout, unspecified, Z78.0 - Asymptomatic menopausal state Uric Acid 09/25/22 E78.2 - Mixed hyperlipidemia, J20.9 - Acute bronchitis, unspecified, E79.0 - Hyperuricemia without signs of inflammatory arthritis and tophaceous disease, M10.9 - Gout, unspecified, Z78.0 - Asymptomatic menopausal state AMB Nebulizer Treatment 06/06/22 J20.9 - Acute bronchitis, unspecified Medications: New dextromethorphan-guaifenesin 30-600 mg (Mucinex DM) 1 tab PO Q12H PRN 20 tabs 0RF cough J20.9 - Acute bronchitis, unspecified Symbicort 160-4.5 mcg/actuation (budesonide-formoterol) 2 puffs inhalation Q12H 10.2 grams 0RF NS inhalational spacing device (BreatheRite MDI Spacer) use with symbicort as directed 1 ea 0RF omega-3 acid ethyl esters (Lovaza) 2 caps PO DAILY 60 caps 5RF E78.2 - Mixed hyperlipidemia Refilled allopurinol 300 mg PO DAILY 90 tabs 1RF Coding Level of Care Code Est Pt Level 4 (63846) Diagnoses Acute bronchitis J20.9 Mixed dyslipidemia E78.2 Gout M1A.00X0 Chronicity: chronic Gout etiology: idiopathic Gout site: unspecified site Presence of tophus: without tophus CPT Codes Nebulizer Treatment - Nebulizer Treatment, initial or subsequent: [id number]/MDI RX initial, or Nebulizer Subsequent Treatment ([id number])
== END 2022-06-06 12:37 | disposition home or self-care (01) ==
LOC: HO.HMGC 11:09
PROVIDERS: PCP Internal Medicine; Visit Provider Internal Medicine
DX: J20.9 Acute bronchitis, unspecified (principal); E78.2 Mixed hyperlipidemia; M1A.00X0 Idiopathic chronic gout, unspecified site, without tophus (tophi)
CPT/HCPCS: 94640; 99214; J7620

== ENCOUNTER 2022-09-28 07:50 | Outpatient (REF) | payer OTHER, MEDICAID, SELFPAY ==
[2022-09-28 12:59] LABS: Alanine Aminotransferase 18 U/L (0-31); Anion Gap 15 (12-20); Aspartate Amino Transferase 19 U/L (5-31); Blood Urea Nitrogen 23 mg/dL (9-16); Carbon Dioxide 22 mmol/L (22-29); Chloride 108 mmol/L (96-108); Cholesterol 178 mg/dL; Estimated Glomerular Filt Rate 53; Glucose Fasting 95 mg/dL (60-99); HDL Cholesterol 40 mg/dL; LDL Cholesterol Calculated 102 mg/dl; Potassium 4.4 mmol/L (3.3-5.1); Sodium 141 mmol/L (135-145); Triglycerides 180 mg/dL; Uric Acid 4.7 mg/dL (2.4-5.7); Vitamin D 25-OH Total 55.6 ng/mL (>30)
== END 2022-09-28 07:51 | disposition home or self-care (01) ==
LOC: HO.HMGCLDS 07:50
PROVIDERS: PCP Internal Medicine; Visit Provider Internal Medicine
DX: E78.2 Mixed hyperlipidemia (principal); J20.9 Acute bronchitis, unspecified; M10.9 Gout, unspecified; Z78.0 Asymptomatic menopausal state
CPT/HCPCS: 36415; 80048; 80061; 82306; 84450; 84460; 84550

== ENCOUNTER 2022-10-02 07:55 | Outpatient (AMB) | payer OTHER, MEDICAID, SELFPAY ==
--- NOTE | 2022-10-02 07:57 | A.OFFPC_ITS ---
Vital Signs 10/02/22 08:04 Height 5 ft 6 in Weight 243 lb BMI 39.2 BP 104/64 Blood Pressure Location Rt brachial Position Sitting Pulse 61 Pulse Source Pulse Oximeter Pulse Oximetry (%) 99 Oxygen Delivery Method Room Air Intake Visit Reasons: Annual PE Intake Note: Pt is here today for her Physical Exam Allergies sulfamethoxazole [From BACTRIM] Allergy (Intermediate, Verified 10/02/22 08:12) RASH lithium [LITHIUM] Adverse Reaction (Intermediate, Verified 10/02/22 08:12) AFFECTS MY KIDNEYS Medication List - Last Reconciled 10/02/22 by Paty Centeno MD allopurinol 300 mg PO DAILY aripiprazole 20 mg PO BEDTIME PRN atorvastatin 20 mg PO BEDTIME inhalational spacing device (BreatheRite MDI Spacer) use with symbicort as directed Tobacco use date assessed: 10/02/22 Dental Screening Dental Screen Date: 10/02/22 Did you have a dental visit in the last 12 months?: Yes Did you have a dental problem in the last 6 months where you did not have access to dental care?: Yes Was dental information given to patient?: Patient has dentist HPI Annual PE HPI Details 62-year-old lady here today for physical exam. She has mixed dyslipidemia, with recent fasting labs showing lipids within normal limits currently taking atorvastatin 20 mg daily. She is due for her screening mammogram, and is up-to-date with her screening colonoscopy done in August [place] [address] Sen, to be repeated again in 10 years. Patient declines getting any cervical cancer screening or pelvic exam. She has had 3 COVID vaccinations, not had her booster yet, up-to-date with Tdap and gets yearly flu shots. She has bipolar disorder currently on aripiprazole, followed by [facility] Dr. Mclaughlin. 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 How often do you have a drink containing alcohol?: Never Total Score: 0 DEVON-7 AMB Questionnaire DEVON-7 Date DEVON - 7 assessed: 06/09/21 Source: Developed by Drs. Kenneth Reed, Nati Atkinson, Marvin Loco and colleagues, with an educational scott from [employer]. Review of Systems Const Reports no additional complaints Eyes Details: Wears reading glasses hi goes to [facility] ENT Details: Goes to [facility] for her routine cleaning and is scheduled for root canal this Sunday Card Denies chest pain, Denies rapid heart rate and Denies irregular heart rhythm Resp Reports no additional complaints GI Reports no additional complaints Reports no additional complaints Musc Reports muscle cramps (Occasional cramping at night in legs) and Denies muscle weakness Skin/Breast Reports as per HPI Neuro Reports no additional complaints Psych Details: Currently sees [facility], followed by Dr. Mclaughlin for bipolar disorder, stable controlled on present treatment Endo Reports no additional complaints Gil/Lymph Reports no additional complaints Aller/Immun Reports no additional complaints Physical exam (Primary Care) Vital Signs: Last Vital Signs Pulse 61 10/02/22 08:04 BP 104/64 10/02/22 08:04 Pulse Ox 99 10/02/22 08:04 Oxygen Delivery Method Room Air 10/02/22 08:04 BMI result Body Mass Index 39.2 BMI Assessment/Plan discussion: High BMI High, discussed plan: lifestyle, weight reduction, dietary and physical activity Tobacco/Smoking Status: Tobacco use Status Tobacco use date assessed 10/02/22 10/02/22 08:01 Patient Tobacco Use Status Never used Tobacco 10/02/22 08:01 e-Cigarette/Vaping Use Never Used 10/02/22 08:01 Thrive Assessment: Date of Thrive Assessment Date Thrive assessed 06/06/22 10/02/22 08:01 Const General: cooperative, comfortable and no acute distress Nutritional Appearance: obese Orientation/consciousness: patient oriented x3 Limitations: no limitations HENMT Head: Yes normocephalic and Yes atraumatic Ears: hearing grossly normal bilaterally, external ears normal, TM's normal bilaterally and Abnormal EAC present (Partially impacted cerumen in both ears) General nose exam: Normal external nose present Face and sinus: Yes face symmetric Mouth: Normal oral and palatal mucosa present Eyes General: appearance normal, both eyes and all related structures Neck Neck: Yes full ROM, Yes no lymphadenopathy and Yes supple Chest Chest palpation & inspection: normal inspection of the chest, no masses and no tenderness Breast/axilla inspection: normal inspection of the breasts Breast/axilla palpation: normal palpation of the breasts Resp Effort & Inspection: normal respiratory effort and able to speak in complete sentences Auscultation: clear to auscultation bilaterally Cardio Rate: regular rate Rhythm: regular rhythm Heart sounds: S1 normal heart sound present and S2 normal heart sound present GI Inspection: Yes obesity Palpation (GI): Soft to palpation, nontender, no guarding and no masses Auscultation: normal bowel sounds Other: Declines pelvic exam and cervical cancer screen General: Yes no CVA tenderness Back/Spine/Pelvis Back: no CVA tenderness and No back tenderness Skin General skin exam: no rashes or lesions noted Neuro General: patient oriented x3, gait normal, tone normal, moves all extremities, Normal light touch and pain sensation, no focal motor deficits and CN's II-XI intact bilaterally Cognition (Neuro): normal cognition Extrem Other: Right foot slightly turned inwards, no gross bone deformity, no joint swelling seen no calf tenderness Psych Appearance: grossly normal Mental Status: mental status grossly normal Speech and movement: Normal speech and movement present Affect: normal affect Attitude: cooperative Thought process: Normal thought process present Results Reviewed Results Reviewed: ENTERED: 09/28/22-[address]: ORDERED: Met Prof Fast, Uric, AST, ALT, Lipid Panel, Vitamin D 25-OH Test Result Flag Reference Site Sodium 141 135-145 mmol/L Potassium 4.4 3.3-5.1 mmol/L CL 108 96-108 mmol/L CO2 22 22-29 mmol/L Gap 15 12-20 BUN 23 H 9-16 mg/dL Creat 1.05 0.5-1.4 mg/dL EGFR 53 NOTE: For -Armenian individuals, multiply the result by 1.210. Chronic Kidney Disease: Estimated GFR < 60 mL/min/1.73m2 Severe Kidney Disease: Estimated GFR < 15 mL/min/1.73m2 FBS 95 60-99 mg/dL Uric Acid 4.7 2.4-5.7 mg/dL CA 10.0 8.4-10.2 mg/dL AST (GOT) 19 5-31 U/L ALT (GPT) 18 0-31 U/L Triglyceride 180 mg/dL Desirable Triglyceride: less than 150 mg/dL Borderline High Triglyceride 150-199 mg/dL High Triglyceride: 200-499 mg/dL Very High Triglyceride: greater than or equal to 5OO mg/dL Chol 178 mg/dL Desirable Cholesterol: less than 200 mg/dL Borderline High Cholesterol: 200-239 mg/dL High Cholesterol: greater than 239 mg/dL LDL Calculated 102 mg/dl Desirable LDL: less than 100 mg/dL Near Optimal/Above Optimal LDL: 110-129 mg/dL Borderline High LDL: 130-159 mg/dL High LDL: 160-189 mg/dL Very High LDL: greater than or equal to 190 mg/dL HDL 40 mg/dL Desirable HDL: greater than 40 mg/dL Note: This HDL assay may give artificially low results in patients with liver disease. Vit D 25-OH Tot 55.6 >30 ng/mL Health Based Reference Values* < 20 ng/mL Deficient 20-30 ng/mL Insufficient > 30 ng/mL Sufficient Assessment and Plan Assessment & Plan (1) Annual visit for general adult medical examination with abnormal findings: Code(s): Z00.01 - Encounter for general adult medical examination with abnormal findings Plan: Reviewed recent fasting labs with lipids fasting glucose, uric acid level and vitamin-D within wound. Currently up-to-date with her dental prophylaxis every 6 months, has an appointment for root canal later this week and goes to [facility] for her regular eye exams. Take adequate calcium in diet and vitamin- D 3 at 2000 IU per cap once a day, in addition to weight-bearing exercises to help maintain good muscle tone and weight control. She has had her COVID vaccine and states that she has had her booster given at work last December 2021 gets yearly flu shots, and up-to-date with her Tdap, reminded to get her shingles vaccination. She is up-to-date with her screening colonoscopy [place] [address] Sen due again in 2028. Patient declines referral or getting any cervical cancer screening (2) Bipolar disorder: Comment: Dr mclaughlin at [facility] Code(s): F31.9 - Bipolar disorder, unspecified Qualifiers: Active/Remission status: remission status unspecified Qualified Code(s): F31.9 - Bipolar disorder, unspecified Plan: Currently followed at [facility] by Dr. Mclaughlin on aripiprazole (3) Mixed dyslipidemia: Code(s): E78.2 - Mixed hyperlipidemia Plan: Recent fasting labs reviewed with patient with lipids within normal limits, continued on atorvastatin 20 mg daily in addition to adhering to healthy eating habits and advised to get regular exercise, lose weight (4) Screening for osteoporosis: Code(s): Z13.820 - Encounter for screening for osteoporosis Plan: Ordered bone density (5) Obesity (BMI 30-39.9): Code(s): E66.9 - Obesity, unspecified Plan: Discussed need to increase activity and wt reduction. Recommended focusing on improving your health instead of dieting. : Eat Mediterranean diet, limit foods high in fat, sugar, and calories, eat slowly, pay attention to portion sizes, plan your meals ahead of time, start regular physical activity 150 minutes of moderate intensity exercise or 90 minutes/week of vigorous exercise and increase water intake. Orders: Orders XR DEXA axial skeleton Today Z12.31 - Encounter for screening mammogram for malignant neoplasm of breast, Z13.820 - Encounter for screening for osteoporosis, Z78.0 - Asymptomatic menopausal state MM screening mammo BI Today Z12.31 - Encounter for screening mammogram for malignant neoplasm of breast, Z13.820 - Encounter for screening for osteoporosis, Z78.0 - Asymptomatic menopausal state Lipid Panel 01/03/23 E78.2 - Mixed hyperlipidemia, Z78.0 - Asymptomatic menopausal state Alanine Aminotransferase 01/03/23 E78.2 - Mixed hyperlipidemia, Z78.0 - Asymptomatic menopausal state Aspartate Amino Transferase 01/03/23 E78.2 - Mixed hyperlipidemia, Z78.0 - Asymptomatic menopausal state Vitamin D 25-OH Total 01/03/23 E78.2 - Mixed hyperlipidemia, Z78.0 - Asymptomatic menopausal state Medications: New cholecalciferol (vitamin D3) 50 mcg PO DAILY 90 caps 3RF Refilled allopurinol 300 mg PO DAILY 90 tabs 3RF atorvastatin 20 mg PO BEDTIME 90 tabs 3RF E78.5 - Hyperlipidemia, unspecified Review Declined Pap Smear: 10/02/22 Coding Level of Care Code Est Pt Prev Care 40-64y(34019) Diagnoses Annual visit for general adult medical examination with abnormal findings Z00.01 Bipolar disorder F31.9 Active/Remission status: remission status unspecified Mixed dyslipidemia E78.2 Screening for osteoporosis Z13.820 Obesity (BMI 30-39.9) E66.9
[2022-10-02 08:04] VITALS: BP 104/64; PULSE 61; O2SAT 99; BMI 39.2
== END 2022-10-02 08:40 | disposition home or self-care (01) ==
PROVIDERS: Visit Provider Internal Medicine
DX: Z00.01 Encounter for general adult medical examination with abnormal findings (principal); F31.9 Bipolar disorder, unspecified; E66.9 Obesity, unspecified; Z68.39 Body mass index [BMI] 39.0-39.9, adult; E78.2 Mixed hyperlipidemia; Z13.820 Encounter for screening for osteoporosis
CPT/HCPCS: 99396

== ENCOUNTER 2023-02-14 08:47 | Outpatient (REF) | payer OTHER, SELFPAY ==
[2023-02-14 11:48] LABS: Alanine Aminotransferase 15 U/L (0-31); Aspartate Amino Transferase 19 U/L (5-31); Cholesterol 175 mg/dL (<200); HDL Cholesterol 41 mg/dL (>40); LDL Cholesterol Calculated 102 mg/dL (<100); Triglycerides 164 mg/dL (<150)
[2023-02-14 12:15] LABS: Vitamin D 25-OH Total 42.4 ng/mL (>30)
== END 2023-02-14 08:48 | disposition home or self-care (01) ==
LOC: HO.HMGCLDS 08:47
PROVIDERS: PCP Internal Medicine; Visit Provider Internal Medicine
DX: E78.2 Mixed hyperlipidemia (principal); Z78.0 Asymptomatic menopausal state
CPT/HCPCS: 36415; 80061; 82306; 84450; 84460

== ENCOUNTER 2023-02-16 08:16 | Outpatient (AMB) | payer OTHER, SELFPAY ==
[2023-02-16 09:37] VITALS: BP 110/80; PULSE 54; O2SAT 95; BMI 39.7
--- NOTE | 2023-02-16 09:37 | MHC.PC.OV ---
Vital Signs 02/16/23 09:37 Height 5 ft 6 in Weight 246 lb BMI 39.7 BP 110/80 Blood Pressure Location Lt brachial Position Sitting Pulse 54 Pulse Source Pulse Oximeter Pulse Oximetry (%) 95 Oxygen Delivery Method Room Air Intake Visit Reasons: 4 month f/u Intake Note: Pt is here to follow up for her lab results Pt had covid and flu at work and will get the dates for us Allergies sulfamethoxazole [From BACTRIM] Allergy (Intermediate, Verified 02/16/23 09:53) RASH lithium [LITHIUM] Adverse Reaction (Intermediate, Verified 02/16/23 09:53) AFFECTS MY KIDNEYS Medication List - Last Reconciled 02/16/23 by Paty Centeno MD allopurinol 300 mg PO DAILY aripiprazole 20 mg PO BEDTIME PRN atorvastatin 20 mg PO BEDTIME cholecalciferol (vitamin D3) 50 mcg PO DAILY inhalational spacing device (BreatheRite MDI Spacer) use with symbicort as directed Tobacco use date assessed: 02/16/23 Dental Screening Dental Screen Date: 02/16/23 Did you have a dental visit in the last 12 months?: Yes Did you have a dental problem in the last 6 months where you did not have access to dental care?: No Was dental information given to patient?: Patient has dentist HPI HPI Comments History of Present Illness Details 62-year-old lady with mixed dyslipidemia, and obesity, here today for follow-up. She is currently takes atorvastatin 20 mg daily. Had recent fasting labs which showed lipids and vitamin-D level within normal limits. She has been feeling well with no complaints at present time. 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 Kenneth Reed, Nati Atkinson, Marvin Loco and colleagues, with an educational scott from [employer]. Review of Systems Const Reports no additional complaints Eyes Details: Wears reading glasses hi goes to [facility] ENT Details: Goes to [facility] for her routine cleaning and is scheduled for root canal this Sunday Card Denies chest pain, Denies rapid heart rate and Denies irregular heart rhythm Resp Reports no additional complaints GI Reports no additional complaints Reports no additional complaints Musc Reports muscle cramps (Occasional cramping at night in legs) and Denies muscle weakness Neuro Reports no additional complaints Physical exam (Primary Care) Vital Signs: Last Vital Signs Pulse 54 02/16/23 09:37 BP 110/80 02/16/23 09:37 Pulse Ox 95 02/16/23 09:37 Oxygen Delivery Method Room Air 02/16/23 09:37 BMI result Body Mass Index 39.7 BMI Assessment/Plan discussion: High BMI High, discussed plan: lifestyle, weight reduction, dietary and physical activity Tobacco/Smoking Status: Tobacco use Status Tobacco use date assessed 02/16/23 02/16/23 09:44 Patient Tobacco Use Status Never used Tobacco 02/16/23 09:37 e-Cigarette/Vaping Use Never Used 02/16/23 09:37 Thrive Assessment: Date of Thrive Assessment Date Thrive assessed 06/06/22 02/16/23 09:37 Const General: cooperative, comfortable and no acute distress Orientation/consciousness: patient oriented x3 Limitations: no limitations HENMT Head: Yes normocephalic and Yes atraumatic Ears: hearing grossly normal bilaterally, external ears normal, TM's normal bilaterally and Abnormal EAC present (Partially impacted cerumen in both ears) General nose exam: Normal external nose present Face and sinus: Yes face symmetric Mouth: Normal oral and palatal mucosa present Eyes General: appearance normal, both eyes and all related structures Neck Neck: Yes full ROM, Yes no lymphadenopathy and Yes supple Chest Chest palpation & inspection: normal inspection of the chest, no masses and no tenderness Breast/axilla inspection: normal inspection of the breasts Breast/axilla palpation: normal palpation of the breasts Resp Effort & Inspection: normal respiratory effort and able to speak in complete sentences Auscultation: clear to auscultation bilaterally Cardio Rate: regular rate Rhythm: regular rhythm Heart sounds: S1 normal heart sound present and S2 normal heart sound present GI Inspection: Yes obesity Palpation (GI): Soft to palpation, nontender, no guarding and no masses Auscultation: normal bowel sounds Other: Declines pelvic exam and cervical cancer screen Skin General skin exam: no rashes or lesions noted Neuro General: patient oriented x3, gait normal, tone normal, moves all extremities, Normal light touch and pain sensation, no focal motor deficits and CN's II-XI intact bilaterally Cognition (Neuro): normal cognition Extrem Other: Right foot slightly turned inwards, no gross bone deformity, no joint swelling seen no calf tenderness Psych Appearance: grossly normal Mental Status: mental status grossly normal Speech and movement: Normal speech and movement present Affect: normal affect Attitude: cooperative Thought process: Normal thought process present Results Reviewed Results Reviewed: Name: Nati Payne Age/Sex: 62/F : 1960 Unit#: [id number] Attend Dr: Paty Centeno MD Re02/14/23 Status: DEP REF Location: [facility] Disch: SPEC : [id number] ALEXANDER: 02/14/23 STATUS: COMP REQ : [id number] RECD: 02/14/[address]: Paty Centeno MD COMP: 02/14/23 ENTERED: 02/14/[address]: ORDERED: AST, ALT, Lipid Panel, Vitamin D 25-OH Test Result Flag Reference Site AST (GOT) 19 5-31 U/L ALT (GPT) 15 0-31 U/L Triglyceride 164 H <150 mg/dL Desirable Triglyceride: less than 150 mg/dL Borderline High Triglyceride 150-199 mg/dL High Triglyceride: 200-499 mg/dL Very High Triglyceride: greater than or equal to 5OO mg/dL Cholesterol 175 <200 mg/dL Desirable Cholesterol: less than 200 mg/dL Borderline High Cholesterol: 200-239 mg/dL High Cholesterol: greater than 239 mg/dL LDL Calculated 102 H <100 mg/dL Desirable LDL: less than 100 mg/dL Near Optimal/Above Optimal LDL: 110-129 mg/dL Borderline High LDL: 130-159 mg/dL High LDL: 160-189 mg/dL Very High LDL: greater than or equal to 190 mg/dL HDL 41 >40 mg/dL Desirable HDL: greater than 40 mg/dL Note: This HDL assay may give artificially low results in patients with liver disease. Vit D 25-OH Tot 42.4 >30 ng/mL Health Based Reference Values* < 20 ng/mL Deficient 20-30 ng/mL Insufficient > 30 ng/mL Sufficient Assessment and Plan Assessment & Plan (1) Mixed dyslipidemia: Code(s): E78.2 - Mixed hyperlipidemia Plan: Reviewed recent fasting lipid profile with patient with mild elevation in her triglycerides but LDL cholesterol is within normal limits. Could atorvastatin 20 mg daily continue with following a low-cholesterol diet and getting regular exercise, at least 30 minutes 3 to 4 times a week. Advised patient to make healthy food choices, eat more fruits, vegetables, whole grains, wild caught fish and low-fat dairy. Limit amount of meat and fried or fatty food products, as well as processed foods and fast foods. Follow-up scheduled with repeat fasting lipid panel in 4 months. (2) Hyperuricemia: Code(s): E79.0 - Hyperuricemia without signs of inflammatory arthritis and tophaceous disease Plan: Continue with low purine diet. Has not had any recent gout attacks Orders: Orders Uric Acid 06/16/23 E78.2 - Mixed hyperlipidemia, Z78.0 - Asymptomatic menopausal state, E79.0 - Hyperuricemia without signs of inflammatory arthritis and tophaceous disease, M10.9 - Gout, unspecified Basic Metabolic Panel Fasting 06/16/23 E78.2 - Mixed hyperlipidemia, Z78.0 - Asymptomatic menopausal state, E79.0 - Hyperuricemia without signs of inflammatory arthritis and tophaceous disease, M10.9 - Gout, unspecified Lipid Panel 06/16/23 E78.2 - Mixed hyperlipidemia, Z78.0 - Asymptomatic menopausal state, E79.0 - Hyperuricemia without signs of inflammatory arthritis and tophaceous disease, M10.9 - Gout, unspecified Alanine Aminotransferase 06/16/23 E78.2 - Mixed hyperlipidemia, Z78.0 - Asymptomatic menopausal state, E79.0 - Hyperuricemia without signs of inflammatory arthritis and tophaceous disease, M10.9 - Gout, unspecified Aspartate Amino Transferase 06/16/23 E78.2 - Mixed hyperlipidemia, Z78.0 - Asymptomatic menopausal state, E79.0 - Hyperuricemia without signs of inflammatory arthritis and tophaceous disease, M10.9 - Gout, unspecified Vitamin D 25-OH Total 06/16/23 E78.2 - Mixed hyperlipidemia, Z78.0 - Asymptomatic menopausal state, E79.0 - Hyperuricemia without signs of inflammatory arthritis and tophaceous disease, M10.9 - Gout, unspecified Coding Level of Care Code Est Pt Level 3 (80144) Diagnoses Mixed dyslipidemia E78.2 Hyperuricemia E79.0
== END 2023-02-16 12:23 | disposition home or self-care (01) ==
PROVIDERS: PCP Internal Medicine; Visit Provider Internal Medicine
DX: E78.2 Mixed hyperlipidemia (principal); E79.0 Hyperuricemia without signs of inflammatory arthritis and tophaceous disease
CPT/HCPCS: 99213

== ENCOUNTER 2023-05-16 09:13 | Outpatient (REF) | payer OTHER, SELFPAY ==
[2023-05-16 12:01] LABS: Alanine Aminotransferase 18 U/L (0-31); Anion Gap 11 (12-20); Aspartate Amino Transferase 18 U/L (5-31); Blood Urea Nitrogen 18 mg/dL (9-16); Calcium 10.4 mg/dL (8.4-10.2); Carbon Dioxide 28 mmol/L (22-29); Chloride 110 mmol/L (96-108); Cholesterol 174 mg/dL (<200); Estimated Glomerular Filt Rate 59; Glucose Fasting 92 mg/dL (60-99); HDL Cholesterol 40 mg/dL (>40); LDL Cholesterol Calculated 99 mg/dL (<100); Sodium 145 mmol/L (135-145); Triglycerides 177 mg/dL (<150)
[2023-05-16 12:15] LABS: Vitamin D 25-OH Total 53.2 ng/mL (>30)
[2023-05-16 16:22] LABS: Uric Acid 5.4 mg/dL (2.4-5.7)
[2023-05-19 07:39] LABS: TS Negative Control Passed; TS Panel A 0; TS Panel B 2; TS Positive Control Passed; TSpotTB Negative (Negative)
== END 2023-05-16 09:14 | disposition home or self-care (01) ==
LOC: HO.HMGCLDS 09:13
PROVIDERS: PCP Internal Medicine; Visit Provider Internal Medicine
DX: Z11.1 Encounter for screening for respiratory tuberculosis (principal); E78.2 Mixed hyperlipidemia; E79.0 Hyperuricemia without signs of inflammatory arthritis and tophaceous disease; Z78.0 Asymptomatic menopausal state
CPT/HCPCS: 36415; 80048; 80061; 82306; 84450; 84460; 84550; 86481

== ENCOUNTER 2023-05-18 09:40 | Outpatient (AMB) | payer OTHER, SELFPAY ==
--- NOTE | 2023-05-18 10:27 | A.OFFPC_ITS ---
Vital Signs 05/18/23 10:35 Height 5 ft 6 in Weight 243 lb BMI 39.2 BP 112/66 Blood Pressure Location Rt brachial Position Sitting Pulse 54 Pulse Source Pulse Oximeter Pulse Oximetry (%) 96 Oxygen Delivery Method Room Air Intake Visit Reasons: 3 month follow up Intake Note: Pt is here today for her 3mo. f/u : pt request a letter for work that she had a PE back in 10/02/22 Allergies sulfamethoxazole [From BACTRIM] Allergy (Intermediate, Verified 08/28/23 03:36) RASH lithium [LITHIUM] Adverse Reaction (Intermediate, Verified 08/28/23 03:36) AFFECTS MY KIDNEYS Medication List - Last Reconciled 05/18/23 by Paty Centeno MD allopurinol 300 mg PO DAILY aripiprazole 20 mg PO BEDTIME PRN atorvastatin 20 mg PO BEDTIME cholecalciferol (vitamin D3) 50 mcg PO DAILY inhalational spacing device (BreatheRite MDI Spacer) use with symbicort as directed Tobacco use date assessed: 05/18/23 Dental Screening Dental Screen Date: 05/18/23 Did you have a dental visit in the last 12 months?: Yes Did you have a dental problem in the last 6 months where you did not have access to dental care?: Yes Was dental information given to patient?: Patient has dentist HPI 3 month follow up HPI Details 63-year-old lady here today for follow-u p on her lipids, and history of gout. She is currently on atorvastatin 20 mg daily and takes [place] 3 fatty acid supplements a 1000 mg twice a day as well as allopurinol 300 mg once daily. She has been feeling well, compliant with recommended diet and takes medicines as directed. Latest fasting labs showed lipids are within normal limits except for higher triglyceride levels, normal vitamin-D level, and uric acid levels. Noted however that her serum calcium was mildly elevated on recent labs done. 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 1. Little interest or pleasure in doing things: not at all 2. Feeling down, depressed, or hopeless: not at all 3. Trouble falling or staying asleep, or sleeping too much: not at all 4. Feeling tired or having little energy: not at all 5. Poor appetite or overeating: not at all 6. Feeling bad about yourself - or that you are a failure or have let yourself or your family down: not at all 7. Trouble concentrating on things, such as reading the newspaper or watching television: not at all 8. Moving or speaking so slowly that other people could have noticed. Or the opposite - being so fidgety or restless that you have been moving around a lot more than usual: not at all 9. Thoughts that you would be better off or of hurting yourself in some way: not at all Total score: 0 Depression Screening Interpretation: Negative Depression Screening Done: Yes 22437 - PHQ-9 Billing: Yes Source: Developed by Drs. Kenneth Reed, Nati Atkinson, Marvin Loco and colleagues, with an educational scott from [employer] Thrive Questionnaire Date Thrive assessed: 05/18/23 I am a: Patient What is your living situation today?: I have a steady place to live Within the past 12 months, did the food you bought not last and you didn't have the money to get more?: Never true Within the past 12 months, did you worry whether your food would run out before you got money to buy more?: Never true Do you have trouble paying for medicines?: No Do you have trouble getting transportation to medical appointments?: No Do you have trouble paying your heating and electricity bill?: No Do you have trouble taking care of your child, family member or friend?: No Do you have trouble with day-to-day activities such as bathing, preparing meals, shopping, managing finances, etc.?: No Are you currently unemployed and looking for a job?: No Are you interested in more education?: No THRIVE Score: 0 AUDIT C Alcohol Use Questionnaire (AUDIT-C) 1. How often do you have a drink containing alcohol?: Never Total Score: 0 DEVON-7 AMB Questionnaire DEVON-7 Date DEVON - 7 assessed: 05/18/23 Feeling nervous, anxious, or on edge: 0 = Not at all Not being able to stop or control worryin = Not at all Worrying too much about different things: 0 = Not at all Trouble relaxin = Not at all Being so restless that it is hard to sit still: 0 = Not at all Becoming easily annoyed or irritable: 0 = Not at all Feeling afraid as if something awful might happen: 0 = Not at all Total DEVON-7 score (0-4 normal; 5-9 mild; 10-14 moderate; 15-21 severe): 0 Source: Developed by Drs. Kenneth Reed, Nati Atkinson, Marvin Loco and colleagues, with an educational scott from [employer] DEVON-7 Assessment Billing DEVON-7 Assessment Tool: DEVNO-7 Assessment 47712 Review of Systems Const Reports no additional complaints Eyes Details: Wears reading glasses , goes to [facility] ENT Details: Goes to [facility] for her routine cleaning and is scheduled for root canal this Sunday Card Denies chest pain, Denies rapid heart rate and Denies irregular heart rhythm Resp Reports no additional complaints GI Reports no additional complaints Reports no additional complaints Musc Denies arthralgias, Denies joint swelling, Denies muscle weakness and Denies stiffness Neuro Reports no additional complaints Physical exam (Primary Care) Vital Signs: Last Vital Signs Pulse 54 05/18/23 10:35 BP 112/66 05/18/23 10:35 Pulse Ox 96 05/18/23 10:35 Oxygen Delivery Method Room Air 05/18/23 10:35 BMI result Body Mass Index 39.2 BMI Assessment/Plan discussion: High BMI High, discussed plan: lifestyle, weight reduction, dietary and physical activity Tobacco/Smoking Status: Tobacco use Status Tobacco use date assessed 05/18/23 05/18/23 10:28 Patient Tobacco Use Status Never used Tobacco 05/18/23 10:28 e-Cigarette/Vaping Use Never Used 05/18/23 10:28 PHQ-9: PHQ-9 Score PHQ-9: Total score 0 05/18/23 10:50 Depression Screening Interpretation: Negative Thrive Assessment: Date of Thrive Assessment Date Thrive assessed 05/18/23 05/18/23 10:39 Const General: comfortable and no acute distress Orientation/consciousness: patient oriented x3 HENMT Head: Yes normocephalic Ears: hearing grossly normal bilaterally and external ears normal General nose exam: Normal external nose present Face and sinus: Yes face symmetric Mouth: Normal oral and palatal mucosa present Eyes General: appearance normal, both eyes and all related structures Neck Neck: Yes full ROM, Yes no lymphadenopathy and Yes supple Resp Effort & Inspection: normal respiratory effort and able to speak in complete sentences Auscultation: clear to auscultation bilaterally Cardio Rate: regular rate Rhythm: regular rhythm Heart sounds: S1 normal heart sound present and S2 normal heart sound present GI Inspection: Yes obesity Palpation (GI): Soft to palpation, nontender, no guarding and no masses Auscultation: normal bowel sounds Skin General skin exam: no rashes or lesions noted Neuro General: patient oriented x3, gait normal, tone normal, moves all extremities, Normal light touch and pain sensation, no focal motor deficits and CN's II-XI intact bilaterally Cognition (Neuro): normal cognition Extrem Other: Right foot slightly turned inwards, no gross bone deformity, no joint swelling seen no calf tenderness Results Reviewed Results Reviewed: RUN: 05/18/23 1049 PAGE 1 [facility] [address] [place] [id number] Punchboard Assembler: Sin Hartmann M.D. Specimen Inquiry Name: Nati Payne Age/Sex: 63/F : 1960 Unit#: [id number] Attend Dr: Paty Centeno MD Re05/16/23 Status: DEP REF Location: [facility] Disch: SPEC : [id number] ALEXANDER: 05/16/23 STATUS: COMP REQ : [id number] RECD: 05/16/23-[address]: Paty Centeno MD COMP: 05/16/23-1214 ENTERED: 05/16/[address] [facility] DR: ORDERED: Met Prof Fast, Uric, AST, ALT, Lipid Panel, Vitamin D 25-OH Test Result Flag Reference Sodium 145 135-145 mmol/L Potassium 4.0 3.3-5.1 mmol/L CL 110 H 96-108 mmol/L CO2 28 22-29 mmol/L Gap 11 L 12-20 BUN 18 H 9-16 mg/dL Creat 0.96 0.5-1.4 mg/dL EGFR 59 NOTE: For -Serbian individuals, multiply the result by 1.210. Chronic Kidney Disease: Estimated GFR < 60 mL/min/1.73m2 Severe Kidney Disease: Estimated GFR < 15 mL/min/1.73m2 FBS 92 60-99 mg/dL Uric Acid 5.4 2.4-5.7 mg/dL CA 10.4 H 8.4-10.2 mg/dL AST (GOT) 18 5-31 U/L ALT (GPT) 18 0-31 U/L Triglyceride 177 H <150 mg/dL Desirable Triglyceride: less than 150 mg/dL Borderline High Triglyceride 150-199 mg/dL High Triglyceride: 200-499 mg/dL Very High Triglyceride: greater than or equal to 5OO mg/dL Cholesterol 174 <200 mg/dL Desirable Cholesterol: less than 200 mg/dL Borderline High Cholesterol: 200-239 mg/dL High Cholesterol: greater than 239 mg/dL LDL Calculated 99 <100 mg/dL Desirable LDL: less than 100 mg/dL Near Optimal/Above Optimal LDL: 110-129 mg/dL Borderline High LDL: 130-159 mg/dL High LDL: 160-189 mg/dL Very High LDL: greater than or equal to 190 mg/dL HDL 40 L >40 mg/dL Desirable HDL: greater than 40 mg/dL Note: This HDL assay may give artificially low results in patients with liver disease. Vit D 25-OH Tot 53.2 >30 ng/mL Health Based Reference Values* < 20 ng/mL Deficient 20-30 ng/mL Insufficient > 30 ng/mL Sufficient Assessment and Plan Assessment & Plan (1) Mixed dyslipidemia: Code(s): E78.2 - Mixed hyperlipidemia Plan: Reviewed recent fasting lipid profile with patient with levels within normal limits except for elevated triglycerides . Continue atorvastatin and added [place] 3 fatty acid supplements, in addition to adherence to low-cholesterol diet and regular exercise, at least 30 minutes 3 to 4 times a week. Advised patient to make healthy food choices, eat more fruits, vegetables, whole grains, wild caught fish and low-fat dairy. Limit amount of meat and fried or fatty food products, as well as processed foods and fast foods. (2) Hypercalcemia: Code(s): E83.52 - Hypercalcemia Plan: Will check serum ionized calcium (3) Hyperuricemia: Code(s): E79.0 - Hyperuricemia without signs of inflammatory arthritis and tophaceous disease Plan: Latest uric acid levels are within normal limits, continue with allopurinol Orders: Orders Alanine Aminotransferase 08/05/23 E78.2 - Mixed hyperlipidemia, E83.52 - Hypercalcemia Calcium, Ionized 08/05/23 E78.2 - Mixed hyperlipidemia, E83.52 - Hypercalcemia Lipid Panel 08/05/23 E78.2 - Mixed hyperlipidemia, E83.52 - Hypercalcemia Glucose Fasting 08/05/23 E78.2 - Mixed hyperlipidemia, E83.52 - Hypercalcemia Aspartate Amino Transferase 08/05/23 E78.2 - Mixed hyperlipidemia, E83.52 - Hypercalcemia Medications: New omega-3 fatty acids 1,000 mg PO BID 60 caps 5RF Refilled cholecalciferol (vitamin D3) 50 mcg PO DAILY 90 caps 3RF Coding Level of Care Code Est Pt Level 4 (84394) Complex EM visit Add On G2211 Diagnoses Mixed dyslipidemia E78.2 Hypercalcemia E83.52 Hyperuricemia E79.0 Additional Codes DEVON-7 Assessment Billing - DEVON-7 Assessment Tool: DEVON-7 Assessment 35434 ([id number])
[2023-05-18 10:35] VITALS: BP 112/66; PULSE 54; O2SAT 96; BMI 39.2
== END 2023-05-18 11:13 | disposition home or self-care (01) ==
PROVIDERS: PCP Internal Medicine; Visit Provider Internal Medicine
DX: E78.2 Mixed hyperlipidemia (principal); E83.52 Hypercalcemia; E79.0 Hyperuricemia without signs of inflammatory arthritis and tophaceous disease
CPT/HCPCS: 99499

== ENCOUNTER 2023-06-14 09:07 | Outpatient (REF) | payer OTHER, SELFPAY ==
--- NOTE | ~2023-06-14 | MM_ITS ---
EXAMINATION: BONE DENSITOMETRY CLINICAL INDICATION: Asymptomatic menopausal state. COMPARISON: This is the patient's baseline examination. TECHNIQUE: Using a Z Plane DXA System (software version: 13.1) manufactured by [employer], dual-energy x-ray absorptiometry was performed of the lumbar spine and left hip. The images are of good technical quality. Summary results are attached. FINDINGS: LEFT FEMUR, NECK: BMD 0.873 g/cm2, Z-score -0.6, T-score -1.2, osteopenia. LEFT FEMUR, TOTAL: BMD 1.009 g/cm2, Z-score 0.3, T-score 0.0, normal. AP SPINE L2-L4 (excluding L1): The data of L1-L4 has been changed to exclude the L1 vertebral body, because degenerative sclerosis at this level may cause overestimation of lumbar spine density. BMD 1.260 g/cm2, Z-score 0.8, T-score 0.5, normal. IDENTIFIED RISK FACTORS: Menopause. HISTORY OF FRACTURE: None listed. MEDICATIONS: Vitamin D. MM/XR DEXA axial skeleton IMPRESSION: 1. DIAGNOSIS: Osteopenia based on the lowest T-score value of -1.2 in the femoral neck applying World Health Organization criteria. 2. 10-YEAR FRACTURE RISK PREDICTION, FRAX: Major osteoporotic fracture (clinical spine, forearm, hip or shoulder) 7.4%. Hip fracture 0.5%. 3. Treatment Recommendations: NOF guidelines recommend consideration for treatment in postmenopausal women and men age 50 and older presenting with the following: -A hip or vertebral (clinical or morphometric) fracture. -T-score less than or equal to -2.5 at the femoral neck or spine after appropriate evaluation to exclude secondary causes. -Low bone mass at the hip or spine and a 10-year fracture probability by FRAX of greater than or equal to 3% for hip fracture or greater than or equal to 20% for major osteoporotic fracture based on the [place] adapted WHO algorithm. 4. Other Recommendations: All treatment decisions require clinical judgment and consideration of individual patient factors, including patient preferences, comorbidities, previous drug use, risk factors not captured in the FRAX model (e.g. frailty, falls, vitamin D deficiency, increased bone turnover, interval significant decline in bone density) and possible under or overestimation of fracture risk by FRAX. Additional medical evaluation for secondary cause of low bone mineral density may be appropriate. FUTURE SCAN RECOMMENDATION: People with diagnosed cases of osteoporosis or at high risk for fracture should have regular bone mineral density tests. For patients eligible for Medicare, routine testing is allowed once every 2 years. The testing frequency can be increased to one year for patients who have rapidly progressing disease, those who are receiving or discontinuing medical therapy to restore bone mass, or have additional risk factors.
== END 2023-06-14 09:08 | disposition home or self-care (01) ==
LOC: HO.MAMMO 09:07
PROVIDERS: PCP Internal Medicine; Visit Provider Internal Medicine
DX: Z12.31 Encounter for screening mammogram for malignant neoplasm of breast (principal); Z13.820 Encounter for screening for osteoporosis; Z78.0 Asymptomatic menopausal state
CPT/HCPCS: 77063; 77067; 77080

== ENCOUNTER → 2023-06-14 10:00 | Outpatient (BNV) | payer OTHER, SELFPAY | PROVIDERS: PCP Internal Medicine; Visit Provider Radiology Diagnostic Radiology | DX: Z12.31 Encounter for screening mammogram for malignant neoplasm of breast (principal) | CPT/HCPCS: 77063; 77067 ==

== ENCOUNTER 2023-06-25 14:28 | Outpatient (AMB) | payer OTHER, SELFPAY ==
[2023-06-25 14:33] VITALS: BP 120/76; PULSE 65; TEMP 36.6; O2SAT 95
--- NOTE | 2023-06-25 14:33 | AM.OFFWIN_ITS ---
Intake Vital Signs 06/25/23 14:33 Height 5 ft 6 in BP 120/76 Blood Pressure Location Rt brachial Position Sitting Pulse 65 Pulse Source Pulse Oximeter Temp 97.8 F Temp Source Oral Pulse Oximetry (%) 95 Oxygen Delivery Method Room Air Intake Visit Reasons: EP gout lft foot Intake Note: pt is here for left foot pain due to possible Gout Patient Tobacco Use Status: Never used Tobacco Allergies sulfamethoxazole [From BACTRIM] Allergy (Intermediate, Verified 06/25/23 14:34) RASH lithium [LITHIUM] Adverse Reaction (Intermediate, Verified 06/25/23 14:34) AFFECTS MY KIDNEYS Do you need a note to return to daycare/school/sports/work: No HPI HPI Comments History of Present Illness Details Patient presents to the walk-in today for sick visit Complaining of left ankle pain for last 1 month. Recently saw foot doctor on referral from her PCP. Foot doctor had sent her for physical therapy which she started last week Patient reports after physical therapy the pain feels worse. She had to leave work yesterday because she is on her feet the entire day and it became too much she has been taking Tylenol without improvement Denies any new injury [facility] Medical History Mixed dyslipidemia Acquired deformity of right foot Rosacea Vitamin D deficiency Menopause Hyperuricemia Gout Bipolar disorder Surgical History Hx of section Hx of cholecystectomy Family History Father Alzheimer disease Mother Cancer Social History Housing: Condominium Alcohol intake: never Patient Tobacco Use Status: Never used Tobacco e-Cigarette/Vaping Use: Never Used Second Hand Smoke Exposure: No service: No Current occupational status: employed 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 Answers questions appropriately. Fully engaged in examination. Skin: warm, dry, intact HEENT: Normocephalic. Hearing intact. Cardiac: External chest normal in appearance. Respiratory: No cough, audible wheezing or stridor. Abdomen: without gross distension. MS: No obvious deformity Tenderness over left lateral malleolus Minimal swelling noted Ambulates with steady gait, weight-bearing on left side Neurological: Oriented to person, place, time and situation. Thought process intact. Psychiatric: Appropriate mood and affect. Good judgment and insight. Results Reviewed Results Reviewed: X-ray left ankle ordered independently reviewed: Negative for fracture or dislocation Assessment & Plan Assessment & Plan (1) Left ankle sprain: Code(s): S93.402A - Sprain of unspecified ligament of left ankle, initial encounter Plan X-ray ordered independently reviewed: No fracture dislocation Christiano wrap applied, patient advised on use Continue with Tylenol and Motrin as needed. Advised rest, elevation and ice Work note provided Follow-up with member certification manager or PCP. Return to walk-in for any new or worsening symptoms. Coding Level of Care Code Est Pt Level 4 (06188) Diagnoses Left ankle sprain S93.402A
== END 2023-06-25 15:45 | disposition home or self-care (01) ==
PROVIDERS: PCP Internal Medicine; Visit Provider Registered Nurse Emergency
DX: S93.402A Sprain of unspecified ligament of left ankle, initial encounter (principal)
CPT/HCPCS: 99213

== ENCOUNTER 2023-06-25 15:04 | Outpatient (REF) | payer OTHER, SELFPAY ==
--- NOTE | ~2023-06-25 | XR_ITS ---
EXAMINATION: XR ANKLE, LEFT CLINICAL INFORMATION: Ankle pain COMPARISON: None available. TECHNIQUE: AP, lateral, and mortise views of the left ankle. FINDINGS: Lateral ankle soft tissue swelling. Mild tibiotalar joint arthritis. No visible acute fracture or dislocation. Ankle mortise is maintained. Talar dome appears intact. Prominent plantar and posterior calcaneal spur. XR/XR ankle LT min 3V IMPRESSION: Lateral ankle soft tissue swelling. No radiographic evidence of discrete acute fracture or dislocation. Mild tibiotalar arthritis.
== END 2023-06-25 15:05 | disposition home or self-care (01) ==
LOC: HO.HMGCX 15:04
PROVIDERS: PCP Internal Medicine; Visit Provider Registered Nurse Emergency
DX: M25.572 Pain in left ankle and joints of left foot (principal)
CPT/HCPCS: 73610

== ENCOUNTER 2023-10-02 08:31 | Outpatient (REF) | payer OTHER, SELFPAY ==
[2023-10-02 10:37] LABS: Alanine Aminotransferase 23 U/L (0-31); Aspartate Amino Transferase 21 U/L (5-31); Cholesterol 180 mg/dL (<200); Glucose Fasting 95 mg/dL (60-99); HDL Cholesterol 36 mg/dL (>40); LDL Cholesterol Calculated 93 mg/dL (<100); Triglycerides 255 mg/dL (<150)
[2023-10-04 13:28] LABS: Calcium, Ionized 5.4 mg/dL (4.7-5.5)
== END 2023-10-02 08:32 | disposition home or self-care (01) ==
LOC: HO.HMGCLDS 08:31
PROVIDERS: PCP Internal Medicine; Visit Provider Internal Medicine
DX: E78.2 Mixed hyperlipidemia (principal); E83.52 Hypercalcemia
CPT/HCPCS: 36415; 80061; 82330; 82947; 84450; 84460

== ENCOUNTER 2023-10-04 09:17 | Outpatient (AMB) | payer OTHER, SELFPAY ==
[2023-10-04 09:24] VITALS: BP 110/68; PULSE 60; O2SAT 94; BMI 39.2
--- NOTE | 2023-10-04 09:24 | A.OFFPC_ITS ---
Vital Signs 10/04/23 09:24 Height 5 ft 6 in Weight 243 lb BMI 39.2 BP 110/68 Blood Pressure Location Lt brachial Position Sitting Pulse 60 Pulse Source Pulse Oximeter Pulse Oximetry (%) 94 Oxygen Delivery Method Room Air Intake Visit Reasons: Annual PE Intake Note: Pt is here toay for her PE: last mammogram 06/14/23, colonoscopy 08/13/18 Allergies sulfamethoxazole [From BACTRIM] Allergy (Intermediate, Verified 10/04/23 09:55) RASH lithium [LITHIUM] Adverse Reaction (Intermediate, Verified 10/04/23 09:55) AFFECTS MY KIDNEYS Medication List - Last Reconciled 10/04/23 by Paty Centeno MD allopurinol 300 mg PO DAILY aripiprazole 20 mg PO BEDTIME PRN atorvastatin 20 mg PO BEDTIME cholecalciferol (vitamin D3) 50 mcg PO DAILY inhalational spacing device (BreatheRite MDI Spacer) use with symbicort as directed omega-3 fatty acids 1,000 mg PO BID Tobacco use date assessed: 10/04/23 Dental Screening Dental Screen Date: 10/04/23 Did you have a dental visit in the last 12 months?: Yes Did you have a dental problem in the last 6 months where you did not have access to dental care?: Yes Was dental information given to patient?: Patient has dentist HPI Annual PE HPI Details 63-year-old lady here today for physical exam. She is up-to-date with her screening mammogram, last done 06/14/2023 with benign findings. Up-to-date with her colon cancer screening, last colonoscopy was done 08/13/2018, done by Dr. Sen with negative findings, repeat due in 2028. Patient has not had any cervical cancer screening done, has refused procedure. Has bipolar disorder currently stable controlled on present treatment, followed by Ramírez Mclaughlin at [facility] [place]]. Needs a referral to see Dr. Diana Hightower at [facility] for persistent bilateral plantar pain, worse at end of her workday. She works as a [employer] is on her feet all the time. She has been referred by Dr. Schaffer for physical therapy, which has not afforded any improvement , She has an appointment already for follow-up with her 10/09/2023, needs a referral. Has hyperlipidemia, with latest fasting labs showing normal LDL cholesterol but triglycerides elevated. She is currently on atorvastatin 20 mg daily, but admits to eating a lot junk food and drinks iced coffee regularly. Has history of gout, no acute attacks. Currently on allopurinol and seldom has needed to use her indomethacin prescription. COUNT INCLUDES THE [facility] Medical History (Updated 10/04/23 @ 10:25 by Paty Centeno MD) History of gout Plantar fasciitis Mixed dyslipidemia Acquired deformity of right foot Rosacea Vitamin D deficiency Menopause Hyperuricemia Gout Bipolar disorder Surgical History Hx of section Hx of cholecystectomy Family History Father Alzheimer disease Mother Cancer Social History Housing: Condominium Alcohol intake: never Patient Tobacco Use Status: Never used Tobacco e-Cigarette/Vaping Use: Never Used Second Hand Smoke Exposure: No service: No Current occupational status: employed 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 1. Little interest or pleasure in doing things: not at all 2. Feeling down, depressed, or hopeless: not at all 3. Trouble falling or staying asleep, or sleeping too much: not at all 4. Feeling tired or having little energy: not at all 5. Poor appetite or overeating: not at all 6. Feeling bad about yourself - or that you are a failure or have let yourself or your family down: not at all 7. Trouble concentrating on things, such as reading the newspaper or watching television: not at all 8. Moving or speaking so slowly that other people could have noticed. Or the opposite - being so fidgety or restless that you have been moving around a lot more than usual: not at all 9. Thoughts that you would be better off or of hurting yourself in some way: not at all Total score: 0 Depression Screening Interpretation: Negative Depression Screening Done: Yes 54395 - PHQ-9 Billing: Yes Source: Developed by Drs. Kenneth L. Brianna, Marvin Douglas and colleagues, with an educational scott from [employer]. Thrive Questionnaire Date Thrive assessed: 10/04/23 I am a: Patient What is your living situation today?: I have a steady place to live Within the past 12 months, did the food you bought not last and you didn't have the money to get more?: Never true Within the past 12 months, did you worry whether your food would run out before you got money to buy more?: Never true Do you have trouble paying for medicines?: No Do you have trouble getting transportation to medical appointments?: No Do you have trouble paying your heating and electricity bill?: No Do you have trouble taking care of your child, family member or friend?: No Do you have trouble with day-to-day activities such as bathing, preparing meals, shopping, managing finances, etc.?: No Are you currently unemployed and looking for a job?: No Are you interested in more education?: No Please select the resources that you would like help with: Housing/Custodial Currently or been in a relationship where the following occur: No concerns reported THRIVE Score: 0 AUDIT C Alcohol Use Questionnaire (AUDIT-C) 1. How often do you have a drink containing alcohol?: Never Total Score: 0 DEVON-7 AMB Questionnaire DEVON-7 Date DEVON - 7 assessed: 10/04/23 Feeling nervous, anxious, or on edge: 0 = Not at all Not being able to stop or control worryin = Not at all Worrying too much about different things: 1 = Several days Trouble relaxin = Not at all Being so restless that it is hard to sit still: 0 = Not at all Becoming easily annoyed or irritable: 0 = Not at all Feeling afraid as if something awful might happen: 0 = Not at all Total DEVON-7 score (0-4 normal; 5-9 mild; 10-14 moderate; 15-21 severe): 1 Source: Developed by Drs. Kenneth Reed, Marvin Douglas and colleagues, with an educational scott from [employer]. DEVON-7 Assessment Billing DEVON-7 Assessment Tool: DEVON-7 Assessment 04286 Review of Systems Const Reports no additional complaints Eyes Details: Wears reading glasses , goes to [facility] ENT Details: Goes to [facility] for her routine cleaning and is scheduled for root canal this Sunday Card Denies chest pain, Denies rapid heart rate and Denies irregular heart rhythm Resp Reports no additional complaints GI Reports no additional complaints Reports no additional complaints Musc Reports as per HPI, Denies joint swelling, Denies muscle weakness and Denies stiffness Skin/Breast Denies breast pain, Denies breast mass and Denies rash Neuro Reports no additional complaints Psych Reports no additional complaints Endo Reports no additional complaints Gil/Lymph Reports no additional complaints Aller/Immun Reports no additional complaints Physical exam (Primary Care) Vital Signs: Last Vital Signs Pulse 60 10/04/23 09:24 BP 110/68 10/04/23 09:24 Pulse Ox 94 10/04/23 09:24 Oxygen Delivery Method Room Air 10/04/23 09:24 BMI result Body Mass Index 39.2 BMI Assessment/Plan discussion: High BMI High, discussed plan: lifestyle, weight reduction, dietary and physical activity Tobacco/Smoking Status: Tobacco use Status Tobacco use date assessed 10/04/23 10/04/23 09:28 Patient Tobacco Use Status Never used Tobacco 10/04/23 09:28 e-Cigarette/Vaping Use Never Used 10/04/23 09:28 PHQ-9: PHQ-9 Score PHQ-9: Total score 0 10/04/23 09:28 Depression Screening Interpretation: Negative Thrive Assessment: Date of Thrive Assessment Date Thrive assessed 10/04/23 10/04/23 09:28 Currently or been in a relationship where the following occur: No concerns reported Advance Care Planning discussion: Completed/Scanned Date of discussion: 10/04/23 Who was present: Patient Forms completed: Health Care Proxy Time spent: 16-45 minutes Actual minutes spent: 16 Const General: comfortable and no acute distress Orientation/consciousness: patient oriented x3 HENMT Head: Yes normocephalic Ears: hearing grossly normal bilaterally and external ears normal General nose exam: Normal external nose present Face and sinus: Yes face symmetric Mouth: Normal oral and palatal mucosa present Eyes General: appearance normal, both eyes and all related structures Neck Neck: Yes full ROM, Yes no lymphadenopathy and Yes supple Chest Chest palpation & inspection: normal inspection of the chest Breast/axilla palpation: normal palpation of the breasts Resp Effort & Inspection: normal respiratory effort and able to speak in complete sentences Auscultation: clear to auscultation bilaterally Cardio Rate: regular rate Rhythm: regular rhythm Heart sounds: S1 normal heart sound present and S2 normal heart sound present GI Inspection: Yes obesity Palpation (GI): Soft to palpation, nontender, no guarding and no masses Auscultation: normal bowel sounds General: Yes no CVA tenderness and Yes deferred (Patient declined exam) Back/Spine/Pelvis Back: no CVA tenderness and No back tenderness Skin General skin exam: no rashes or lesions noted Neuro General: patient oriented x3, gait normal, tone normal, moves all extremities, Normal light touch and pain sensation, no focal motor deficits and CN's II-XI intact bilaterally Cognition (Neuro): normal cognition Extrem Other: Right foot slightly turned inwards, no gross bony deformity, no joint swelling seen no calf tenderness General: Yes full ROM, Yes no joint enlargement, Yes no clubbing, cyanosis or edema, Yes no calf tenderness and Yes normal gait Psych Appearance: grossly normal and well kempt Mental Status: mental status grossly normal Speech and movement: Normal speech and movement present Affect: normal affect Attitude: cooperative Thought process: Normal thought process present Thought content: Normal thought content present Results Reviewed Results Reviewed: Name: Nati Payne Age/Sex: 63/F : 1960 Unit#: [id number] Attend Dr: Paty Centeno MD Re10/02/23 Status: DEP REF Location: [facility] Disch: SPEC : [id number] ALEXANDER: 10/02/23 STATUS: COMP REQ : [id number] RECD: 10/02/23-[address]: Paty Centeno MD COMP: 10/02/23-1036 ENTERED: 10/02/[address]: ORDERED: Glu Fasting, AST, ALT, Lipid Panel Test Result Flag Reference FBS 95 60-99 mg/dL AST (GOT) 21 5-31 U/L ALT (GPT) 23 0-31 U/L Triglyceride 255 H <150 mg/dL Desirable Triglyceride: less than 150 mg/dL Borderline High Triglyceride 150-199 mg/dL High Triglyceride: 200-499 mg/dL Very High Triglyceride: greater than or equal to 5OO mg/dL Cholesterol 180 <200 mg/dL Desirable Cholesterol: less than 200 mg/dL Borderline High Cholesterol: 200-239 mg/dL High Cholesterol: greater than 239 mg/dL LDL Calculated 93 <100 mg/dL Desirable LDL: less than 100 mg/dL Near Optimal/Above Optimal LDL: 110-129 mg/dL Borderline High LDL: 130-159 mg/dL High LDL: 160-189 mg/dL Very High LDL: greater than or equal to 190 mg/dL HDL 36 L >40 mg/dL Desirable HDL: greater than 40 mg/dL Assessment and Plan Assessment & Plan (1) Annual visit for general adult medical examination with abnormal findings: Code(s): Z00.01 - Encounter for general adult medical examination with abnormal findings Plan: Recent fasting lab results reviewed with patient. Recommended dental visit every 6 months and regular eye exams, at least every 2 years. Take adequate calcium in diet and vitamin-D 3 at 2000 IU per cap once a day, in addition to weight-bearing exercises to help maintain good muscle tone and weight control. Instructed to do self-breast exam, and continue with yearly mammogram , declines cervical cancer screening or pelvic exam. Up-to-date with her screening colonoscopy due again in 2028 has had COVID vaccines, currently up-to-date with booster, gets yearly flu shot given at work, T spot test came back negative. Up-to-date with her Tdap, reminded to get her shingles vaccine, given at the pharmacy (2) Plantar fasciitis: Code(s): M72.2 - Plantar fascial fibromatosis Plan: Referral ordered to see Dr. Ortiz per recall again has an appointment 10/09/2023 (3) Mixed dyslipidemia: Code(s): E78.2 - Mixed hyperlipidemia Plan: Reviewed recent fasting lab results with patient which showed elevated triglycerides. Advised to stop drinking iced coffee cut back on her junk food and stop eating processed, continue with atorvastatin 20 mg daily, and Mccall 3 fatty acid supplements. (4) Hyperuricemia: Code(s): E79.0 - Hyperuricemia without signs of inflammatory arthritis and tophaceous disease Plan: Continue only. (5) Bipolar disorder: Comment: Dr mclaughlin at [facility] [place]NOTE 2] Code(s): F31.9 - Bipolar disorder, unspecified Qualifiers: Active/Remission status: remission status unspecified Qualified Code(s): F31.9 - Bipolar disorder, unspecified Plan: Stable controlled on present treatment, followed at [facility] [place][NOTE 2] (6) Advanced directives, counseling/discussion: Code(s): Z71.89 - Other specified counseling Plan: Initiated the conversation about Advanced Directives. Advanced Directives help patients prepare for current and future decisions about their medical treatment and place of care. Discussed with patient that it is a process where a patients current condition and prognosis are reviewed, their wishes for information regarding their illness are elicited, and likely medical dilemmas are presented and options discussed. Healthcare proxy form completed today. The form can be amended as needed, reviewed yearly and make changes as needed Orders: Orders Alanine Aminotransferase 10/02/24 E78.2 - Mixed hyperlipidemia, E79.0 - Hyperuricemia without signs of inflammatory arthritis and tophaceous disease, F31.9 - Bipolar disorder, unspecified, Z78.0 - Asymptomatic menopausal state Hemoglobin and Hematocrit 10/02/24 E78.2 - Mixed hyperlipidemia, E79.0 - Hyperuricemia without signs of inflammatory arthritis and tophaceous disease, F31.9 - Bipolar disorder, unspecified, Z78.0 - Asymptomatic menopausal state Aspartate Amino Transferase 10/02/24 E78.2 - Mixed hyperlipidemia, E79.0 - Hyp eruricemia without signs of inflammatory arthritis and tophaceous disease, F31.9 - Bipolar disorder, unspecified, Z78.0 - Asymptomatic menopausal state Basic Metabolic Panel Fasting 10/02/24 E78.2 - Mixed hyperlipidemia, E79.0 - Hyperuricemia without signs of inflammatory arthritis and tophaceous disease, F31.9 - Bipolar disorder, unspecified, Z78.0 - Asymptomatic menopausal state Lipid Panel 10/02/24 E78.2 - Mixed hyperlipidemia, E79.0 - Hyperuricemia without signs of inflammatory arthritis and tophaceous disease, F31.9 - Bipolar disorder, unspecified, Z78.0 - Asymptomatic menopausal state Vitamin D 25-OH Total 10/02/24 E78.2 - Mixed hyperlipidemia, E79.0 - Hyperuricemia without signs of inflammatory arthritis and tophaceous disease, F31.9 - Bipolar disorder, unspecified, Z78.0 - Asymptomatic menopausal state Uric Acid 10/02/24 E78.2 - Mixed hyperlipidemia, E79.0 - Hyperuricemia without signs of inflammatory arthritis and tophaceous disease, F31.9 - Bipolar disorder, unspecified, Z78.0 - Asymptomatic menopausal state Referrals Podiatry Referral M72.2 - Plantar fascial fibromatosis Medications: Refilled cholecalciferol (vitamin D3) 50 mcg PO DAILY 90 caps 3RF atorvastatin 20 mg PO BEDTIME 90 tabs 4RF E78.5 - Hyperlipidemia, unspecified Coding Level of Care Code Est Pt Prev Care 40-64y(40637) Diagnoses Annual visit for general adult medical examination with abnormal findings Z00.01 Plantar fasciitis M72.2 Mixed dyslipidemia E78.2 Hyperuricemia E79.0 Bipolar affective disorder, remission status unspecified F31.9 Active/Remission status: remission status unspecified Advanced directives, counseling/discussion Z71.89 Additional Codes DEVON-7 Assessment Billing - DEVON-7 Assessment Tool: DEVON-7 Assessment 42901 ([id number]) Vital Signs *Quality* - Advance Care Planning discussion: Completed/Scanned ([id number]) Vital Signs *Quality* - Time spent: 16-45 minutes ([id number])
== END 2023-10-04 10:20 | disposition home or self-care (01) ==
PROVIDERS: PCP Internal Medicine; Visit Provider Internal Medicine
DX: Z00.00 Encounter for general adult medical examination without abnormal findings (principal); F31.9 Bipolar disorder, unspecified; M72.2 Plantar fascial fibromatosis; E78.2 Mixed hyperlipidemia; E79.0 Hyperuricemia without signs of inflammatory arthritis and tophaceous disease
CPT/HCPCS: 1123F; 99396; 99497

== ENCOUNTER 2024-03-08 11:20 | Emergency (ER) | payer OTHER, SELFPAY ==
--- NOTE | ~2024-03-08 | XR_ITS ---
CLINICAL HISTORY: pain Two views of the left tibia and fibula. COMPARISON: None FINDINGS: Tibia and fibula appear intact. Well corticated ossification present along the tip of the fibular head possibly representing a small osteophyte versus remote avulsion injury. This does not appear acute. Visualized portions of the left ankle and knee are unremarkable. IMPRESSION: 1. No radiographic evidence of acute injury to the left tibia and fibula. 2. Well corticated ossification present along the tip of the fibular head possibly representing a small osteophyte versus remote avulsion injury. Recommend correlation with more remote imaging if available and point tenderness. This document has been electronically signed by: Jayy Pendleton MD on 03/08/2024 15:56:44
--- NOTE | ~2024-03-08 | XR_ITS ---
CLINICAL HISTORY: pain Four views of the left knee. COMPARISON: None FINDINGS: No suprapatellar joint effusion. Medial joint space narrowing. Small tricompartment osteophytes. Visualized portions of the distal femur, patella, and proximal tibia and fibula appear intact. IMPRESSION: 1. No radiographic evidence of acute injury to the left knee. 2. Mild tricompartment degenerative changes of the left knee. This document has been electronically signed by: Jayy Pendleton MD on 03/08/2024 15:54:54
--- NOTE | ~2024-03-08 | US_ITS ---
CLINICAL HISTORY: LLE pain x36hrs. r o dvt Venous duplex ultrasound left lower extremity COMPARISON: None FINDINGS: The visualized deep veins are fully compressible with normal Doppler color flow and spectral tracings. No popliteal cyst. Contralateral right common femoral vein demonstrates normal compression, flow and augmentation. IMPRESSION: 1. Negative for left lower extremity deep vein thrombosis. This document has been electronically signed by: Jayy Pendleton MD on 03/08/2024 14:21:11
[2024-03-08 11:42] VITALS: BP 121/57; PULSE 72; RESP 18; TEMP 36.5; O2SAT 100; BMI 30.7
--- NOTE | 2024-03-08 11:43 | ED_ITS ---
HPI - Extremity Injury (Lower) General Chief Complaint: Extremity Injury, Lower Stated Complaint: l leg pain Time Seen by Provider: 03/08/24 11:57 Source: patient and RN notes reviewed Mode of arrival: ambulatory Limitations: no limitations History of Present Illness ED Provider: Skye Morfin PA-C HPI Narrative: This is a 63-year-old female, with a history of hyperlipidemia, bipolar disorder, and gout, who presents emergency department for evaluation of left lower extremity pain. Patient denies any recent trauma or injury. Patient states that while she was sitting at home, she suddenly developed pain in her posterior knee and left calf. She attempted to go to an urgent care however all 3 urgent cares were not accepting any patients therefore she made an urgent care appointment for today. She went this afternoon, and was told to come to the emergency room for an ultrasound. Patient reports pain with ambulation. Denies history of similar symptoms in the past. No trauma or injury. Denies any recent travel, surgery, hospitalizations. No history of blood clots. Onset (ago): day(s) Place: home Severity: moderate Relieving factors: nothing Exacerbating factors: nothing Related Data Home Medications ?Medication ?Instructions ?Recorded ?Confirmed aripiprazole 20 mg tablet 20 mg PO BEDTIME PRN 03/18/20 02/16/23 Previous Rx's ?Medication ?Instructions ?Recorded inhalational spacing device #1 ea 06/06/22 (BreatheRite MDI Spacer) omega-3 fatty acids 1,000 mg 1,000 mg PO BID #60 caps 05/18/23 capsule allopurinol 300 mg tablet 300 mg PO DAILY #90 tabs 06/12/23 cholecalciferol (vitamin D3) 50 50 mcg PO DAILY #90 caps 10/04/23 mcg (2,000 unit) capsule atorvastatin 20 mg tablet 20 mg PO BEDTIME #90 tabs 01/18/24 acetaminophen 500 mg capsule 500 - 1,000 mg (1 - 2 x 500 mg) PO 03/08/24 Q8H PRN pain #30 caps Allergies Allergy/AdvReac Type Severity Reaction Status Date / Time sulfamethoxazole Allergy Intermediate RASH Verified 03/08/24 11:44 [From BACTRIM] lithium [LITHIUM] AdvReac Intermediate AFFECTS Verified 03/08/24 11:44 MY KIDNEYS Review of Systems 2 Review of Systems: Yes all other systems are reviewed and are negative Constitutional: Constitutional: Reports as per [facility] Past Medical History Attestation statement: The following information was validated with the patient. Medical History History of gout Plantar fasciitis Mixed dyslipidemia Acquired deformity of right foot Rosacea Vitamin D deficiency Menopause Hyperuricemia Gout Bipolar disorder Surgical History Hx of section Hx of cholecystectomy Family History Family History Father Alzheimer disease Mother Cancer Social History Social History Housing: Condominium Alcohol intake: never Patient Tobacco Use Status: Never used Tobacco e-Cigarette/Vaping Use: Never Used Second Hand Smoke Exposure: No Advance Directives: No Advance Directives Information Provided: No Do you have a plan to hurt others: No Plan service: No Current occupational status: employed 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 Current occupational exposures/hazards: No Cognitive needs: No Hearing needs: No Vision needs: Yes Physical Exam 2 Vital Signs: Vital Signs: Last Vital Signs Temp 98.2 F 03/08/24 18:28 Pulse 76 03/08/24 18:28 Resp 20 03/08/24 18:28 BP 128/72 03/08/24 18:28 Pulse Ox 99 03/08/24 18:28 O2 Del Method Room Air 03/08/24 18:28 BMI result Body Mass Index 30.7 Const: General: cooperative, comfortable and no acute distress O rientation/consciousness: patient oriented x3 Limitations: no limitations HEENT: Head: Yes normal to inspection, Yes normocephalic and Yes atraumatic Ears: hearing grossly normal bilaterally General nose exam: Normal external nose present Face and sinus: Yes normal facial exam Mouth: Normal oral and palatal mucosa present, oropharynx normal and moist mucous membranes Throat: Yes posterior oropharynx normal Eyes: General: appearance normal, both eyes and all related structures E yelids: Yes eyelids normal Conjunctivae: conjunctivae normal Sclerae: s clerae normal Pupils: Equal, round and reactive pupils present EOM: EOMs intact bilaterally Neck: Neck: Yes normal visual inspection, Yes full ROM and Yes no lymphadenopathy Lymphatic: no lymphadenopathy noted Chest: Chest palpation & inspection: normal inspection of the chest Resp: Effort & Inspection: normal respiratory effort and able to speak in complete sentences Auscultation: clear to auscultation bilaterally, no crackles, no rales, no rhonchi and no wheezes Cardio: Rate: regular rate Rhythm: regular rhythm Heart sounds: S1 normal heart sound present and S2 normal heart sound present GI: Inspection: Yes normal to inspection Skin: General skin exam: no rashes or lesions noted Trauma: no lacerations or abrasions Wounds: no wounds Neuro: General: patient oriented x3 and moves all extremities Cranial nerves: Yes Equal, round and reactive pupils present Extrem: Other: Left leg is well perfused, no overlying erythema noted. Patient has pain posterior to her knee extending into the left calf. She has a strong DP pulse. Positive Homans sign. Knee is nontender, she has no tenderness palpation along the medial or lateral joint line. No tenderness palpation along the fibular head. No overlying erythema or warmth. Full range of motion of the knee without difficulty. Leg is well perfused. General: Yes normal to inspection Right upper extremity: normal to inspection Left upper extremity: normal to inspection Right lower extremity: normal to inspection Course Course Course Narrative: This is a Rapid Medical Exam performed in triage by Denise Soto PA-C. Full HPI, ROS and PE to be performed by primary ED provider. 63yo F with a past medical history gout, rosacea, bipolar, presenting to the ED c/o sent in from for DVT r/o. C/o LLE calf pain x 36hrs. Denies hx clots, travel, SOB, CP PE: +LLE calf ttp. No erythema/warmth or pitting edema. Neurovascularly intact distally Plan: Venous duplex ultrasound Reevaluation(s) Reevaluation #1: Ultrasound negative. Will obtain labs to rule out any electrolyte derangement. Friend is here at bedside, in his concerned as she was unable to bear weight on her leg upon arrival, therefore will obtain labs to rule out any electrolyte derangement. Will also obtain x-rays to rule out any bony abnormalities. Time: 15:06 Reevaluation #2: Labs returned, she has no significant electrolyte derangement. No leukocytosis, no acute findings. X-rays were performed, she does have a well corticated ossification present along the tip of the fibular head, representing a small osteophytes versus remote avulsion injury. She has no tenderness along this region therefore this is likely degenerative in nature, remote avulsion injury unlikely. Discussed this with patient as well as friend at bedside. Knee x-ray does show degenerative changes of the left knee. Patient reports that she is feeling better after receiving Tylenol. She is ambulatory with steady gait in the department. Patient does report that pain worsens with weight-bearing however she is able to weightbear and take steps without assistance. I offered her to stay the night, as well as Sunday night so that she can be seen by PT Case Management on Sunday if she is feeling unsteady on her feet. She states that she feels well, just reports pain with weight-bearing. She declines wanting to stay the night to be evaluated by Physical therapy on Sunday. I discussed strict return precautions. She has good support system at home, who will check in on her. She feels well, and comfortable for discharge. Patient stable for discharge. Time: 18:36 Medications Administered Discontinued Medications Generic Name Dose Route Start Last Admin Trade Name Maurice PRN Reason Stop Dose Admin Acetaminophen 975 mg 03/08/24 12:50 03/08/24 13:08 Acetaminophen 325 Mg Tablet PO 03/08/24 12:51 975 mg ONCE ONE Administration Medical Decision Making Medical Decision Making [facility] Narrative: This is a 63-year-old female, with a history of bipolar disorder, and hyperlipidemia, who presents emergency department with complaints of left lower extremity pain which started suddenly yesterday. No trauma or injury. On arrival, vital signs within normal limits. She is speaking full sentences under no acute distress. She does have pain posterior to her knee extending into her left calf. Strong DP pulse. Leg is well perfused. No recent trauma, surgery, hospitalizations or surgeries. No history of blood clots. Ultrasound of the left lower extremity was ordered to rule out DVT. We will also assess for Early's cyst. Will treat pain with Tylenol orally. Differential Diagnosis Differential Diagnoses: The differential diagnosis associated with the presentation includes DVT, Early's cyst, knee strain, gout-unlikely Lab Data [facility] Lab Attestation statement: I reviewed the patient's lab results. No leukocytosis, stable H&H, chemistry with no significant electrolyte derangement. Total bili 1.5, which she has a history of elevated T bili in the past. Similar to previous. 03/08/24 16:18 03/08/24 16:18 Labs: Lab Results 03/08/24 Range/Units 16:18 WBC 8.5 (4.8-10.8) X10*3/uL RBC 4.22 (4.20-5.50) X10*6/uL Hgb 12.0 (12.0-16.0) g/dl Hct 36.4 L (37.0-47.0) % MCV 86.3 (80.0-98.0) fL MCH 28.4 (27.0-33.0) pg MCHC 33.0 (31.0-35.0) g/dl RDW 13.1 (11.0-16.0) % Plt Count 178 D (160-400) X10*3/uL MPV 9.5 (9.4-12.3) fL Immature Gran % (Auto) 0.5 H (0.0-0.4) % Neut % (Auto) 62.1 (45-73) % Lymph % (Auto) 27.9 (20-40) % Glasscock % (Auto) 5.1 (2-11) % Eos % (Auto) 3.8 (0-4) % Baso % (Auto) 0.6 (0-2) % Lymph # (Auto) 2.4 (1.2-4.9) X10*3/uL Glasscock # (Auto) 0.4 (0.1-1.2) X10*3/uL Eos # (Auto) 0.3 (0.0-0.4) X10*3/uL Baso # (Auto) 0.1 (0.0-0.2) X10*3/uL Abs Immat Gran (auto) 0.04 H (0.00-0.03) X10*3/uL Absolute Neuts (auto) 5.3 (2.0-8.3) x10*3/uL Absolute Nucleated RBC 0.000 (0.0-0.012) X10*3/uL Nucleated RBC % (auto) 0.0 (0.0-0.2) /100WBC Sodium 144 (135-145) mmol/L Potassium 4.2 (3.3-5.1) mmol/L Chloride 112 H (96-108) mmol/L Carbon Dioxide 22 (22-29) mmol/L Anion Gap 14 (12-20) BUN 17 H (9-16) mg/dL Creatinine 0.93 (0.5-1.4) mg/dL Estim Creat Clear Calc 68.4 Estimated GFR > 60 Random Glucose 98 (60-115) mg/dL Calcium 9.6 D (8.4-10.2) mg/dL Magnesium 1.9 (1.6-2.6) mg/dL Total Bilirubin 1.5 H (0.0-1.0) mg/dL Direct Bilirubin 0.4 (0.0-0.5) mg/dL AST 28 (5-31) U/L ALT 24 (0-31) U/L Alkaline Phosphatase 79 (39-117) U/L Total Protein 7.1 (6.5-8.0) g/dL Albumin 3.8 (3.5-5.0) g/dL Radiology Impression Discussion of test interpretation with radiology: I have reviewed the radiologist's reading. Radiologist Impression: [place] [id number] XRay Report Signed Patient: Nati Payne MR#: [id number] : 1960 Acct:[id number] Age/Sex: 63 / F ADM Date: 03/08/24 Loc: .ED Attending Dr: Ordering Physician: Skye Morfin Date of Service: 03/08/24 Procedure(s): XR tibia fibula LT 2V Accession Number(s): [id number] cc: Paty Centeno MD; Skye Morfin~ CLINICAL HISTORY: pain Two views of the left tibia and fibula. COMPARISON: None FINDINGS: Tibia and fibula appear intact. Well corticated ossification present along the tip of the fibular head possibly representing a small osteophyte versus remote avulsion injury. This does not appear acute. Visualized portions of the left ankle and knee are unremarkable. IMPRESSION: 1. No radiographic evidence of acute injury to the left tibia and fibula. 2. Well corticated ossification present along the tip of the fibular head possibly representing a small osteophyte versus remote avulsion injury. Recommend correlation with more remote imaging if available and point tenderness. This document has been electronically signed by: Jayy Pendleton MD on 03/08/2024 15:56:44 Dictated By: Jayy Pendleton MD [address] [address] XRay Report Signed Patient: Nati Payne MR#: [id number] : 1960 Acct:[id number] Age/Sex: 63 / F ADM Date: 03/08/24 Loc: HO.ED Attending Dr: Ordering Physician: Skye Morfin Date of Service: 03/08/24 Procedure(s): XR knee LT 4V Accession Number(s): [id number] cc: Paty Centeno MD; Skye Morfin~ CLINICAL HISTORY: pain Four views of the left knee. COMPARISON: None FINDINGS: No suprapatellar joint effusion. Medial joint space narrowing. Small tricompartment osteophytes. Visualized portions of the distal femur, patella, and proximal tibia and fibula appear intact. IMPRESSION: 1. No radiographic evidence of acute injury to the left knee. 2. Mild tricompartment degenerative changes of the left knee. This document has been electronically signed by: Jayy Pendleton MD on 03/08/2024 15:54:54 Dictated By: Jayy Pendleton MD CLINICAL HISTORY: LLE pain x36hrs. r o dvt Venous duplex ultrasound left lower extremity COMPARISON: None FINDINGS: The visualized deep veins are fully compressible with normal Doppler color flow and spectral tracings. No popliteal cyst. Contralateral right common femoral vein demonstrates normal compression, flow and augmentation. IMPRESSION: 1. Negative for left lower extremity deep vein thrombosis. This document has been electronically signed by: Jayy Pendleton MD on 03/08/2024 14:21:11 Dictated By: Jayy Pendleton MD Independent Historian Clinical information obtained from an independent historian. History obtained from or confirmed by: Friend Ashley, friend Discharge Plan Discharge Clinical Impression: Left leg pain Patient Disposition: Home, Self-Care Instructions: Leg Pain (ED) Additional Instructions: You were seen in the emergency department due to left leg pain Your ultrasound does not show any blood clots, or cyst. You do have arthritis noted in your knee. It is unclear what is causing you to have the symptoms however your workup today was reassuring. Take Tylenol as needed for pain and symptoms. Rest, ice, elevate your leg for pain relief. Follow-up with your primary care physician regarding this visit. Any new or worsening symptoms occur including but not limited to worsening pain, severe chest pain, shortness for breath, please seek emergent care. Prescriptions: New acetaminophen 500 mg capsule 500 - 1,000 mg PO Q8H PRN (Reason: pain) Qty: 30 0RF No Action allopurinol 300 mg tablet 300 mg PO DAILY Qty: 90 3RF atorvastatin 20 mg tablet 20 mg PO BEDTIME Qty: 90 1RF aripiprazole 20 mg tablet 20 mg PO BEDTIME PRN (DME) BreatheRite MDI Spacer Spacer See Rx Instructions .Route Qty: 1 0RF Rx Instructions: use with symbicort as directed cholecalciferol (vitamin D3) 50 mcg (2,000 unit) capsule 50 mcg PO DAILY Qty: 90 3RF omega-3 fatty acids 1,000 mg capsule 1,000 mg PO BID Qty: 60 5RF Stand Alone Forms: Work/School Release Interventions: ED Discharge Assessment Last Done: 03/08/24 18:28 Discharge Date/Time: 03/08/24 18:29 Print Language: Burmese
[2024-03-08] MEDS: Acetaminophen 325 MG TABLET 975 MG PO (13:08)
[2024-03-08 16:21] LABS: MANUAL DIFF FLAG NO
[2024-03-08 16:22] LABS: Basophils Absolute Auto 0.1 X10*3/uL (0.0-0.2); Basophils Percent Auto 0.6 % (0-2); Eosinophils Absolute Auto 0.3 X10*3/uL (0.0-0.4); Eosinophils Percent Auto 3.8 % (0-4); Hematocrit 36.4 % (37.0-47.0); Imm Gran Abs Auto 0.04 X10*3/uL (0.00-0.03); Imm Gran Pct Auto 0.5 % (0.0-0.4); Lymphocytes Absolute Auto 2.4 X10*3/uL (1.2-4.9); Lymphocytes Percent Auto 27.9 % (20-40); Mean Corpuscular Hemoglobin 28.4 pg (27.0-33.0); Mean Corpuscular Volume 86.3 fL (80.0-98.0); Mean Platelet Volume 9.5 fL (9.4-12.3); Monocytes Absolute Auto 0.4 X10*3/uL (0.1-1.2); Monocytes Percent Auto 5.1 % (2-11); Neutrophils Absolute Auto 5.3 x10*3/uL (2.0-8.3); Neutrophils Percent Auto 62.1 % (45-73); Platelet Count 178 X10*3/uL (160-400); Red Blood Count 4.22 X10*6/uL (4.20-5.50); Red Cell Distribution Width 13.1 % (11.0-16.0); White Blood Count 8.5 X10*3/uL (4.8-10.8)
[2024-03-08 16:44] LABS: Alanine Aminotransferase 24 U/L (0-31); Albumin Level 3.8 g/dL (3.5-5.0); Alkaline Phosphatase 79 U/L (39-117); Anion Gap 14 (12-20); Aspartate Amino Transferase 28 U/L (5-31); Bilirubin Direct 0.4 mg/dL (0.0-0.5); Bilirubin Total 1.5 mg/dL (0.0-1.0); Blood Urea Nitrogen 17 mg/dL (9-16); Calcium 9.6 mg/dL (8.4-10.2); Carbon Dioxide 22 mmol/L (22-29); Chloride 112 mmol/L (96-108); Creatinine Clr Calc Pharmacy 68.4; Estimated Glomerular Filt Rate > 60; Glucose Random 98 mg/dL (60-115); Magnesium 1.9 mg/dL (1.6-2.6); Potassium 4.2 mmol/L (3.3-5.1); Sodium 144 mmol/L (135-145); Total Protein 7.1 g/dL (6.5-8.0)
[2024-03-08 17:52] VITALS: BP 128/72; PULSE 76; RESP 20; TEMP 36.8; O2SAT 99
[2024-03-08 18:28] VITALS: BP 128/72; PULSE 76; RESP 20; TEMP 36.8; O2SAT 99
== END 2024-03-08 18:29 | disposition home or self-care (01) ==
PROVIDERS: Physician Assistant Medical; Emergency Provider Emergency Medicine; PCP Internal Medicine
DX: M79.662 Pain in left lower leg (principal)
CPT/HCPCS: 36415; 73564; 73590; 80048; 80076; 83735; 85025; 93971; 99284

== ENCOUNTER → 2024-03-08 11:45 | Outpatient (BNV) | payer OTHER, SELFPAY | PROVIDERS: Emergency Provider Emergency Medicine; PCP Internal Medicine; Visit Provider Radiology Diagnostic Radiology | DX: M79.662 Pain in left lower leg (principal) | CPT/HCPCS: 73564; 73590; 93971 ==

== ENCOUNTER 2024-06-02 14:31 | Outpatient (AMB) | payer OTHER, SELFPAY ==
--- NOTE | 2024-06-02 14:34 | AM.OFFWIN_ITS ---
Intake Vital Signs 06/02/24 14:36 Weight 243 lb BP 128/80 Blood Pressure Location Lt brachial Position Sitting Pulse 69 Pulse Source Pulse Oximeter Temp 97.9 F Temp Source Oral Pulse Oximetry (%) 97 Oxygen Delivery Method Room Air Intake Visit Reasons: EP cold, coughing, upper respiratory Intake Note: Patient here for chest congestion, headaches,cough and sinus congestion that has been present for 4 days. Patient Tobacco Use Status: Never used Tobacco Allergies sulfamethoxazole [From BACTRIM] Allergy (Intermediate, Verified 06/02/24 14:36) RASH lithium [LITHIUM] Adverse Reaction (Intermediate, Verified 06/02/24 14:36) AFFECTS MY KIDNEYS Do you need a note to return to daycare/school/sports/work: No HPI HPI Comments History of Present Illness Details History - The patient is a 64-year-old female pr esenting with upper respiratory symptoms including wheezing and congestion over the past four days. - Symptoms include nasal congestion and productive cough, with mucus and wheezing. - She denies fever, ear, and sinus pain. No history of asthma, COPD, or smoking. - Mucinex was ineffective after two days of treatment. - The patient works in an [employer] environment, indicating potential exposure to respiratory illnesses. - COVID tests were conducted twice, both returning negative results. - Notable shortness of breath was experi enced last night, with oxygen levels slightly diminished but acceptable. Physical Exam General: Cooperative, healthy appearing, comfortable and no acute distress Orientation/consciousness: Patient oriented x3 Limitations: No limitations Head: Normal to inspection Ears: Hearing grossly normal bilaterally, external ears normal and TM's normal bilaterally Nose: Normal external nose present, Normal nares present and Very congested Face and sinus: Normal facial exam and Yes sinuses nontender Mouth: Normal oral and palatal mucosa present and moist mucous membranes Throat: Yes tonsils normal, Yes uvula midline. Posterior oropharynx erythema Eyes: Appearance normal, both eyes and all related structures Neck: Normal visual inspection Respiratory: Clear to auscultation bilaterally. Normal respiratory effort, able to speak in complete sentences, Actively coughing, no respiratory distress, not tachypneic, no tripod positioning and no use of accessory muscles Cardiovascular: Regular rate and rhythm. Normal S1 and S2 Skin: No rashes or lesions noted Neuro: Patient oriented x3 Extremities: Normal to inspection and Yes no clubbing, cyanosis or edema [facility] Medical History History of gout Plantar fasciitis Mixed dyslipidemia Acquired deformity of right foot Rosacea Vitamin D deficiency Menopause Hyperuricemia Gout Bipolar disorder Surgical History Hx of section Hx of cholecystectomy Family History Father Alzheimer disease Mother Cancer Social History Housing: Condominium Alcohol intake: never Patient Tobacco Use Status: Never used Tobacco e-Cigarette/Vaping Use: Never Used Second Hand Smoke Exposure: No service: No 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 occupational 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: employed 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 A course of oral corticosteroids will be initiated in a six-day tapering dose to reduce airway inflammation and alleviate the feeling short of breath. The patient is advised to take the initial dose immediately and continue the daily doses in the morning to avoid sleep disturbance. An inhaler is prescribed on an as-needed basis for managing cough and shortness of breath. Additionally, Tessalon Perles is prescribed for cough management at bedtime. Antibiotic administration is not currently indicated pending viral panel results. Viral tests including influenza, COVID, and RSV will determine further management. Use of [id number] agents such as Sudafed or Benadryl for nasal congestion is suggested. The patient should prioritize hydration and rest during a three-day work absence, with work absence documentation available at the front desk supervisor upon departure. Patient was informed and verbally consented to the use of an ambient scribe for clinic note documentation during this visit Orders: Orders SARS-CoV2/FLU/RSV Today R09.89 - Other specified symptoms and signs involving the circulatory and respiratory systems Medications: New benzonatate 200 mg PO BEDTIME PRN 10 caps 0RF cough methylprednisolone PO PER PKG DIR for 6 days 21 ea 0RF albuterol sulfate 90 mcg/actuation 2 puffs inhalation Q6H PRN 8.5 grams 0RF shortness of breath or wheezing or cough Coding Level of Care Code Est Pt Level 3 (57078) Diagnoses URI, acute J06.9
[2024-06-02 14:36] VITALS: BP 128/80; PULSE 69; TEMP 36.6; O2SAT 97
--- OUTSIDE RECORDS SUMMARY | 2024-06-02 16:22 | XMS_ITS ---
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 * Surgical History:? * Hospitalization/Major Diagno stic Procedure:? * Medications:? Objective: Assessment: Plan: * Treatment: * Procedure Codes:? * true * Date:? Generated for Jostin herman/Annmarie/eTransmitting on:?06/02/2024 04:22 PM EDT
--- OUTSIDE RECORDS SUMMARY | 2024-06-02 16:22 | XMS_ITS | Patient Health Record ---
Author Organization [facility] [place] Address [address] [place] [address] Care Team Providers Care Workers Compensation Analyst Name Role Phone Taryn WU, Paty Black Primary Care Provider Un available Diana Hightower Unavailable [phone] Allergies No Known Allergies Reason For Referral Diagnosis 1 Pes cavus of right f oot (Q66.71) Diagnosis 2 Equinus contracture of right ankle (M24.571) Diagnosis 3 Unsteady gait (R26.8 1) Diagnosis 4 Osteoarthritis of ri ght ankle and foot (M19.071) Referring Provider First Name Paty Nguyen Referring Provider Last Name Taryn Referring Provider Speciality Internal M edicine [facility] Referred Provider Diana Hightower Referred Address [address] [facility] [address],[place], [place],[address], Referred Provider Specialty Podiatry Referral Priority Routine Medications Medication SIG (Take, Route, Fr equency, Duration) Notes Start Date End Date Status Physical Therapy . . . 2-3x/week for 3-4 weeks Active Allopurinol 300 MG 1 tablet Orally Once a day Active Lipitor 10 MG 1 tablet Orally Once a day Active Atorvastatin Calcium Active Social History Tobacco Use: Social History Observation Description Date Details (start date - stop date) Never Smoker NA - NA Tobacco Use/Smoking Question Answer Notes Are you a: nonsmoker Additional Findings: Tobacco Non-User Current no n-smoker Alcohol Screen Question Answer Notes Did you have a drink containing alcohol in the p ast year? No Points 0 Interpretation Negative Tobacco use other than smoking: Question Answer Notes Are you an other tobacco user? No Problems Problem Type SNOMED Code ICD Code Onset Dates Problem Status W/U Status Risk Notes Problem 600317352 Primary osteoarthritis, left ankle and foot (M19.072) Active confirmed Problem 56003108 Unsteady gait (R26.81) Active confirmed Problem 332027327 Equinus contracture of right ankle (M24.571) Active confirmed Problem 765391784421906 Osteoarthritis o f right ankle and foot (M19.071) Active confirmed Problem 61247601 Pes cavus (Q66.70) Active confirmed Problem 28299963 Pes cavus of right foot (Q66.71) Active confirmed Problem Osteoarthritis of midtarsal joint of right foot (8986935712430721) Osteoarthritis of midtarsal joint of right foot (M19.071) Active confirmed Vital Signs Blood pressure diastolic 60 mm Hg 10/09/2023 Height 5ft5in in 10/09/2023 Blood pressure systolic 100 mm Hg 10/09/2023 Weight 200 lbs 10/09/2023 BMI 33.28 kg/m2 10/09/2023 Encounters Encounter Location Date Provider Diagnosis [address] [address] 10/09/2023 Diana Hightower Pain in left foot M79.672 ; Osteoarthritis of right ankle and foot M19.071 ; Pain in left ankle and joints of left foot M25.572 ; Bursitis of left foot M77.52 ; Pain in right foot M79.671 ; Pain in right ankle and joints of right foot M25.571 ; Bursitis of right foot M77.51 ; Primary osteoarthritis, left ankle and foot M19.072 ; Pes cavus Q66.70 ; Gastrocnemius equinus of right lower extremity M62.461 and Gastrocnemius equinus of left lower extremity M62.[address] [address] 10/09/2023 Diana Hightower [address] [address] 10/09/2023 Diana Hightower [address] [address] 11/21/2023 Diana Hightower [address] [address] 11/26/2023 Diana Hightower Assessments Encounter Date Diagnosis (ICD Code) Assessment Notes Treatment Notes Treatment Clinical Notes Section Notes 10/09/2023 Pain in left foot (ICD-10 - M79.672) 10/09/2023 Osteoarthritis of right ankle and foot (ICD-10 - M19.071) 10/09/2023 Pain in left ankle and joints of left foot (ICD-10 - M25.572) 10/09/2023 Bursitis of left foot (ICD-10 - M77.52) 10/09/2023 Pain in right foot (ICD-10 - M79.671) 10/09/2023 Pain in right ankle and joints of right foot (ICD-10 - M25.571) 10/09/2023 Bursitis of right foot (ICD-10 - M77.51) 10/09/2023 Primary osteoarthritis, left ankle and foot (ICD-10 - M19.072) 10/09/2023 Pes cavus (ICD-10 - Q66.70) 10/09/2023 Gastrocnemius equinus of right lower extremity (ICD-10 - M62.461) 10/09/2023 Gastrocnemius equinus of left lower extremity (ICD-10 - M62.462) Plan Of Treatment Pending Test Test Name Order Date X ray : Ankle, left 3V 10/09/2023 X ray : Foot, left 3V 10/09/2023 X ray : Foot, right 3V 10/09/2023 X ray : Foot, right 3V 2022 X ray : Ankle, right 3V 10/09/2023 Insurance Providers Payer Name Payer Address Payer Phone Subscriber Number Group Number Insured Name Patient Relationship to Insured Coverage Start Date Coverage End Date [id number] [address] [address] [place] [address] [id number] Nati Payne Self - patient is the insured Medical (General) History Medical History History ICD Code Gout Measles Mumps Chicken pox CAD Gall bladder problems Surgical History Surgery Date(Month/Year) section x gall bladder 2015
--- OUTSIDE RECORDS SUMMARY | 2024-06-02 16:22 | XMS_ITS | Clinical Summary ---
Author Organization [employer] Address [address] [facility] [address] [place] [address] Care Team Providers Care Process Helper Name Role Phone Unavailable Primary Care Provider Unavailabl e Social History Tobacco Use Types Packs/Day Years Used Date Smoking Tobacco: Never Assessed Comments Unknown Sex and Gender Information Value Date Recorded Sex Assigned at Female 01/02/2022 10:30 AM EDT Legal Sex Female 10:30 AM EDT Gender Identity Not on file Sexual Orientation Not on file Plan of Treatment Health Maintenance Due Date Last Done Comments CT Colonography 1960 Colonoscopy 1960 Colorectal Cancer Screening 1960 Depression Screening 1960 FIT DNA/Cologuard 1960 FIT 1960 FOBT 1960 Sigmoidoscopy 1960 Alcohol/Substance Use Screening 1972 Tobacco Screening 1972 DTaP/Tdap/Td Vaccines (1 - Tdap) 1979 Pap Smear 1981 Cervical Cancer Screening 1990 HPV/Cotest 1990 Mammogram 2000 Pneumococcal Vaccine: 50+ Ye ars (1 of 1 - PCV) 2010 Zoster Vaccines (1 of 2) 2010 COVID-19 Vaccine ( - 2023-2 5 season) 2023 Influenza Vaccine (#1) 2023 RSV Patients and Pa tients Aged 60 years or older (1 - 1-dose 75+ series) 2035 HIB Vaccines Aged Out No longer eligi ble based on patient's age to complete this topic HPV Vaccines Aged Out No longer eligi ble based on patient's age to complete this topic Hepatitis A Vaccines Aged Out No long er eligible based on patient's age to complete this topic Hepatitis B Vaccines Aged Out No long er eligible based on patient's age to complete this topic IPV Vaccines Aged Out No longer eligi ble based on patient's age to complete this topic Meningococcal Vaccine Aged Out No sandra regine eligible based on patient's age to complete this topic Pneumococcal Vaccine: Pediat rics (0 to 5 Years) and At-Risk Patients (6 to 49) Years) Aged Out No longer eligible b ased on patient's age to complete this topic RSV under 20 months Aged Out No longe r eligible based on patient's age to complete this topic Rotavirus Vaccines Aged Out No longer eligible based on patient's age to complete this topic
--- OUTSIDE RECORDS SUMMARY | 2024-06-02 16:23 | XMS_ITS ---
Author Organization [facility] Address [address] [place] [address] Care Team Providers Care Television Engineering Teacher Name Role Phone Taryn WU, Paty Black Primary Care Provider Un available Diana Hightower [phone] REASON FOR VISIT appt with [facility] Encounters Encounter Location Date Provider Diagnosis [facility] [address] [place] [address] 11/26/2023 Diana Hightower Plan Of Treatment No Information Progress Notes * Nati PAYNE RDOB:1960 (63 yo F)Acc No.[id number]:11/26/2023 Patient:?Nati Payne :1960???Age:63 Y???Sex:Female Address:[address] [place] [address] * true * Date:? Generated for Printi ng/Fajoanneg/eTransmitting on:?06/02/2024 04:22 PM EDT
--- OUTSIDE RECORDS SUMMARY | 2024-06-02 16:23 | XMS_ITS ---
Author Organization [facility] Address [address] [place] [address] Care Team Providers Care Senior Consulting Manager Name Role Phone Taryn WU, Paty Black Primary Care Provider Un available Diana Hightower [phone] REASON FOR VISIT [facility] Encounters Encounter Location Date Provider Diagnosis [facility] [address] [place] [address] 11/21/2023 Diana Hightower Plan Of Treatment No Information Progress Notes * Nati PAYNE RDOB:1960 (63 yo F)Acc No.[id number]:11/21/2023 Patient:?Nati Payne :1960???Age:63 Y???Sex:Female Address:[address] [place] [address] * true * Date:? Generated for Printi ng/Faxing/eTransmitting on:?06/02/2024 04:22 PM EDT
== END 2024-06-02 14:51 | disposition home or self-care (01) ==
PROVIDERS: PCP Internal Medicine; Visit Provider Physician Assistant
DX: J06.9 Acute upper respiratory infection, unspecified (principal)

== ENCOUNTER 2024-06-02 14:31 | Outpatient (REF) | payer OTHER, SELFPAY ==
[2024-06-02 17:36] LABS: Influenza A PCR NEGATIVE (Negative); Influenza B PCR NEGATIVE (Negative); Resp Syncy Virus RNA Qual PCR POSITIVE (Negative); SARS COV2 PCR INHOUSE NEGATIVE (Negative)
== END 2024-06-02 14:32 | disposition home or self-care (01) ==
LOC: HO.LAB 14:31
PROVIDERS: Physician Assistant; PCP Internal Medicine
DX: R09.89 Other specified symptoms and signs involving the circulatory and respiratory systems (principal); J06.9 Acute upper respiratory infection, unspecified
CPT/HCPCS: 0241U

== ENCOUNTER 2024-08-19 07:32 | Outpatient (REF) | payer OTHER, SELFPAY ==
--- OUTSIDE RECORDS SUMMARY | 2024-08-19 07:34 | XMS_ITS | Clinical Summary ---
Author Organization [employer] Address [address] [place] [address] [address] [place] [address] Care Team Providers Care Ware Tester Name Role Phone Unavailable Primary Care Provider [...] 1960 FIT 1960 FOBT 1960 Sigmoidoscopy 1960 Disability Screening 1960 Alcohol/Substance Use Screening 1972 Tobacco Screening 1972 DTaP/Tdap/Td Vaccines (1 - Tdap) 1979 Pap Smear 1981 Cervical Cancer Screening 1990 HPV/Cotest 1990 Mammogram 2000 Pneumococcal Vaccine: 50+ Ye ars (1 of 1 - PCV) 2010 Zoster Vaccines (1 of 2) 2010 COVID-19 Vaccine ( - 2023-2 5 season) 2023 Influenza Vaccine (Season Ended) 2024 RSV Patients and Pa tients Aged 60 [...] patient's age to complete this topic Meningococcal B Vaccine Aged Out No l onger eligible based on patient's age to complete [...]
== END 2024-08-19 07:33 | disposition home or self-care (01) ==
LOC: HO.MAMMO 07:32
PROVIDERS: PCP Internal Medicine; Visit Provider Internal Medicine
DX: Z13.89 Encounter for screening for other disorder (principal)

== ENCOUNTER 2024-11-10 09:54 | Outpatient (REF) | payer OTHER, SELFPAY ==
--- OUTSIDE RECORDS SUMMARY | 2024-11-10 11:31 | XMS_ITS | Clinical Summary ---
Author Organization [employer] Address [address] [place] [address] [address] [place] [address] Care Team Providers Care Mixer Machine Feeder Name Role Phone Unavailable Primary Care Provider [...] COVID-19 Vaccine ( - 2023-2 5 season) 2024 Influenza Vaccine (#1) 2024 RSV Patients and Pa tients Aged [...]
--- OUTSIDE RECORDS SUMMARY | 2024-11-10 11:31 | XMS_ITS | Patient Health Record ---
Author Organization [facility] Address [address] [facility] [place] [address] Care Team Providers Care Can Reforming Machine Operator Name Role Phone Taryn WU, Paty Black Primary Care Provider Un available JuanDiana gomez Unavailable [phone] Allergies No Known Allergies Reason For Referral No Information Medications Medication SIG (Take, Route, Fr equency, Duration) Notes Start Date End Date Status Physical Therapy . . . 2-3x/week; Durat ion: 3-4 weeks 2022 Active Allopurinol 300 MG 1 tablet Orally [...] Problem Status W/U Status Risk Notes Problem Localized, primary osteoarthritis of the ankle and/or foot (046511406) Primary osteoarthritis, left ankle and foot (M19.072) Active confirmed Problem Unsteady gait (92701616) Unsteady gait (R26.81) Active confirmed Problem Plantarflexion deformity of right foot (finding) (9118541742186943 ) Equinus contracture of right ankle (M24.571) Active confirmed Problem Localized, primary osteoarthritis of the ankle and/or foot (001967373) Osteoarthritis of right ankle and foot (M19.071) Active confirmed Problem Pes cavus (44677878) Pes cavus (Q66.70) Active confirmed Problem 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) (2079032883683990 1) Pes cavus of right foot (Q66.71) Active confirmed Problem Osteoarthritis of midtarsal joint of right foot (9030801302931931 ) Osteoarthritis of midtarsal joint of right foot (M19.071) Active confirmed Encounters Encounter Location Date Provider Diagnosis [facility] [address] [place] [address] 11/21/2023 Diana Hightower [facility] [address] 11/26/2023 Diana Hightower Plan Of Treatment Pending Test Test Name [...] Insured Coverage Start Date Coverage End Date [id number] [address] [address] [place] [address] [id number] Nati Payne Self - patient is the insured Medical (General) History Medical History History ICD Code Gout Measles Mumps Chicken pox CAD Gall bladder problems Surgical History Surgery Date(Month/Year) section x / gall bladder 2015
[2024-11-10 14:16] LABS: Hematocrit 39.0 % (37.0-47.0); Hemoglobin 12.6 g/dl (12.0-16.0)
[2024-11-10 14:46] LABS: Alanine Aminotransferase 23 U/L (0-31); Anion Gap 13 (12-20); Aspartate Amino Transferase 29 U/L (5-31); Blood Urea Nitrogen 20 mg/dL (9-16); Calcium 9.8 mg/dL (8.4-10.2); Carbon Dioxide 27 mmol/L (22-29); Chloride 110 mmol/L (96-108); Cholesterol 169 mg/dL (<200); Estimated Glomerular Filt Rate 52; HDL Cholesterol 42 mg/dL (>40); Potassium 4.2 mmol/L (3.3-5.1); Sodium 146 mmol/L (135-145); Triglycerides 164 mg/dL (<150)
[2024-11-10 15:16] LABS: Uric Acid 5.5 mg/dL (2.4-5.7)
== END 2024-11-10 09:55 | disposition home or self-care (01) ==
LOC: HO.HMGCLDS 09:54
PROVIDERS: PCP Internal Medicine; Visit Provider Internal Medicine
DX: E78.2 Mixed hyperlipidemia (principal); E79.0 Hyperuricemia without signs of inflammatory arthritis and tophaceous disease; F31.9 Bipolar disorder, unspecified; Z78.0 Asymptomatic menopausal state; Z13.21 Encounter for screening for nutritional disorder
CPT/HCPCS: 36415; 80048; 80061; 82306; 84450; 84460; 84550; 85014; 85018

== ENCOUNTER 2024-11-17 08:30 | Outpatient (AMB) | payer OTHER, SELFPAY ==
[2024-11-17 08:55] VITALS: BP 100/62; PULSE 56; RESP 16; TEMP 36.7; O2SAT 95; BMI 39.9
--- NOTE | 2024-11-17 08:55 | MHC.PC.OV ---
Vital Signs 11/17/24 08:55 Height 5 ft 6 in Weight 247 lb BMI 39.9 BP 100/62 Blood Pressure Location Rt brachial Position Sitting Respiration 16 Pulse 56 Pulse Source Pulse Oximeter Temp 98.1 F Temp Source Oral Pulse Oximetry (%) 95 Oxygen Delivery Method Room Air Intake Visit Reasons: Annual PE Intake Note: Pt is here today for her PE: Last mammogram 06/14/23, colonoscopy 08/13/18 Allergies sulfamethoxazole (From BACTRIM) Allergy (Intermediate, Verified 11/17/24 09:29) RASH lithium (LITHIUM) Adverse Reaction (Intermediate, Verified 11/17/24 09:29) AFFECTS MY KIDNEYS Medication List - Last Reconciled 11/17/24 by Paty Centeno MD acetaminophen 500 - 1,000 mg (1 - 2 x 500 mg) PO Q8H PRN allopurinol 300 mg PO DAILY aripiprazole 20 mg PO BEDTIME PRN atorvastatin 20 mg PO BEDTIME cholecalciferol (vitamin D3) 50 mcg PO DAILY inhalational spacing device (BreatheRite MDI Spacer) use with symbicort as directed Tobacco use date assessed: 11/17/24 Dental Screening Dental Screen Date: 11/17/24 Did you have a dental visit in the last 12 months?: Yes Did you have a dental problem in the last 6 months where you did not have access to dental care?: No Was dental information given to patient?: Patient has dentist HPI Annual PE HPI Details 64-year-old lady with history of dyslipidemia, bipolar disorder, rosacea, and degenerative joint in left knee as well as plantar fasciitis, here today for her physical. She is overdue for her breast cancer screening, with last mammogram done June 2023. She had an appointment for a screening mammogram but they cancel the appointment due to a rash under both breasts. She is up-to-date with her colon cancer screening, last colonoscopy done by Dr. Sen in 2018 showed negative findings, repeat due again in 2028. Patient has not had any cervical cancer screening done, has refused procedure. Has bipolar disorder currently stable controlled on present treatment, followed by Ramírez Mclaughlin at [facility]. Currently being followed by Dr. Diana Hightower at [facility] for persistent bilateral plantar pain, worse at end of her workday. 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 Has hyperlipidemia, with latest fasting labs showing normal LDL cholesterol but triglycerides elevated. She is currently on atorvastatin 20 mg daily, but admits to eating a lot junk food and drinks iced coffee regularly. Has history of gout, no acute attacks. Currently on allopurinol and rarely needing to take indomethacin. [facility] Medical History (Updated 11/23/24 @ 18:50 by Paty Centeno MD) Degenerative joint disease of left knee History of gout Plantar fasciitis Mixed dyslipidemia Acquired deformity of right foot Rosacea Vitamin D deficiency Menopause Hyperuricemia Gout Bipolar disorder Surgical History Hx of section Hx of cholecystectomy Family History Father Alzheimer disease Mother Cancer Social History Housing: Condominium Alcohol intake: never Patient Tobacco Use Status: Never used Tobacco e-Cigarette/Vaping Use: Never Used Second Hand Smoke Exposure: No service: No Current occupational status: employed 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 1. Little interest or pleasure in doing things: not at all 2. Feeling down, depressed, or hopeless: not at all 3. Trouble falling or staying asleep, or sleeping too much: not at all 4. Feeling tired or having little energy: not at all 5. Poor appetite or overeating: not at all 6. Feeling bad about yourself - or that you are a failure or have let yourself or your family down: not at all 7. Trouble concentrating on things, such as reading the newspaper or watching television: not at all 8. Moving or speaking so slowly that other people could have noticed. Or the opposite - being so fidgety or restless that you have been moving around a lot more than usual: not at all 9. Thoughts that you would be better off or of hurting yourself in some way: not at all Total score: 0 Depression Screening Interpretation: Negative Depression Screening Done: Yes 46079 - PHQ-9 Billing: Yes Source: Developed by Drs. Kenneth Reed, Nati Atkinson, Marvin Loco and colleagues, with an educational scott from [employer]. Thrive Questionnaire Date Thrive assessed: 11/17/24 I am a: Patient What is your living situation today?: I have a steady place to live Within the past 12 months, did the food you bought not last and you didn't have the money to get more?: Never true Within the past 12 months, did you worry whether your food would run out before you got money to buy more?: Never true Do you have trouble paying for medicines?: No Do you have trouble getting transportation to medical appointments?: No Do you have trouble paying your heating and electricity bill?: No Do you have trouble taking care of your child, family member or friend?: No Do you have trouble with day-to-day activities such as bathing, preparing meals, shopping, managing finances, etc.?: No Are you currently unemployed and looking for a job?: No Are you interested in more education?: No Please select the resources that you would like help with: None Currently or been in a relationship where the following occur: No concerns reported THRIVE Score: 0 AUDIT C Alcohol Use Questionnaire (AUDIT-C) 1. How often do you have a drink containing alcohol?: Never Total Score: 0 Score Reviewed/Action Taken: Yes DEVON-7 AMB Questionnaire DEVON-7 Date DEVON - 7 assessed: 11/17/24 Feeling nervous, anxious, or on edge: 0 = Not at all Not being able to stop or control worryin = Not at all Worrying too much about different things: 1 = Several days Trouble relaxin = Not at all Being so restless that it is hard to sit still: 0 = Not at all Becoming easily annoyed or irritable: 0 = Not at all Feeling afraid as if something awful might happen: 0 = Not at all Total DEVON-7 score (0-4 normal; 5-9 mild; 10-14 moderate; 15-21 severe): 1 Source: Developed by Drs. Kenneth Reed, Nati Atkinson, Marvin Loco and colleagues, with an educational scott from [employer]. DEVON-7 Assessment Billing DEVON-7 Assessment Tool: DEVON-7 Assessment 44301 Review of Systems Const Reports no additional complaints Eyes Details: wears readeing glasses ENT Details: Gets dental cleaning every 6 months Card Denies chest pain, Denies rapid heart rate and Denies irregular heart rhythm Resp Reports no additional complaints GI Reports no additional complaints Reports no additional complaints Musc Reports as per HPI, Denies joint swelling, Denies muscle weakness and Denies stiffness Skin/Breast Reports as per HPI, Denies breast pain and Denies breast mass Neuro Reports no additional complaints Psych Reports no additional complaints Endo Reports no additional complaints Gil/Lymph Reports no additional complaints Aller/Immun Reports no additional complaints Physical exam (Primary Care) Vital Signs: Last Vital Signs Temp 98.1 F 11/17/24 08:55 Pulse 56 11/17/24 08:55 Resp 16 11/17/24 08:55 BP 100/62 11/17/24 08:55 Pulse Ox 95 11/17/24 08:55 Oxygen Delivery Method Room Air 11/17/24 08:55 BMI result Body Mass Index 39.9 Tobacco/Smoking Status: Tobacco use Status Tobacco use date assessed 11/17/24 11/17/24 09:06 Patient Tobacco Use Status Never used Tobacco 11/17/24 09:00 e-Cigarette/Vaping Use Never Used 11/17/24 09:00 PHQ-9: PHQ-9 Score PHQ-9: Total score 0 11/17/24 09:30 Depression Screening Interpretation: Negative Thrive Assessment: Date of Thrive Assessment Date Thrive assessed 11/17/24 11/17/24 09:06 Currently or been in a relationship where the following occur: No concerns reported Const General: comfortable and no acute distress Orientation/consciousness: patient oriented x3 HENMT Head: Yes normocephalic Ears: hearing grossly normal bilaterally and external ears normal General nose exam: Normal external nose present Face and sinus: Yes face symmetric Mouth: Normal oral and palatal mucosa present Eyes General: appearance normal, both eyes and all related structures Neck Neck: Yes full ROM, Yes no lymphadenopathy and Yes supple Chest Chest palpation & inspection: normal inspection of the chest Breast/axilla palpation: normal palpation of the breasts Resp Effort & Inspection: normal respiratory effort and able to speak in complete sentences Auscultation: clear to auscultation bilaterally Cardio Rate: regular rate Rhythm: regular rhythm Heart sounds: S1 normal heart sound present and S2 normal heart sound present GI Inspection: Yes obesity Palpation (GI): Soft to palpation, nontender, no guarding and no masses Auscultation: normal bowel sounds General: Yes no CVA tenderness and Yes deferred (Patient declined exam) Back/Spine/Pelvis Back: no CVA tenderness and No back tenderness Skin Other: Erythematous patch under both breasts Neuro General: patient oriented x3, gait normal, tone normal, moves all extremities, Normal light touch and pain sensation, no focal motor deficits and CN's II-XI intact bilaterally Cognition (Neuro): normal cognition Extrem Other: Right foot slightly turned inwards, no gross bony deformity, no joint swelling seen no calf tenderness General: Yes full ROM, Yes no joint enlargement, Yes no clubbing, cyanosis or edema, Yes no calf tenderness and Yes normal gait Psych Appearance: grossly normal and well kempt Mental Status: mental status grossly normal Speech and movement: Normal speech and movement present Affect: normal affect Results Reviewed Results Reviewed: Laboratory Tests 10/02/23 11/10/24 08:35 10:05 Hgb 12.6 Hct 39.0 Fasting Glucose 95 Name: Nati Payne Age/Sex: 64/F : 1960 Unit#: [id number] Attend Dr: Paty Centeno MD Re11/10/24 Status: DEP REF Location: [facility] Disch: SPEC : [id number] ALEXANDER: 11/10/24 STATUS: COMP REQ : [id number] RECD: 11/10/[address]: Paty Centeno MD COMP: 11/10/24 ENTERED: 11/10/24-[address] [facility] [address]: ORDERED: Met Prof Fast, Uric, AST, ALT, Lipid Panel, Vitamin D 25-OH Test Result Flag Reference Sodium 146 H 135-145 mmol/L Potassium 4.2 3.3-5.1 mmol/L CL 110 H 96-108 mmol/L CO2 27 22-29 mmol/L Gap 13 12-20 BUN 20 H 9-16 mg/dL Creat 1.07 0.5-1.4 mg/dL eGFR 52 Chronic Kidney Disease: Estimated GFR < 60 mL/min/1.73m2 Severe Kidney Disease: Estimated GFR < 15 mL/min/1.73m2 FBS 92 60-99 mg/dL Uric Acid 5.5 2.4-5.7 mg/dL CA 9.8 8.4-10.2 mg/dL AST (GOT) 29 5-31 U/L ALT (GPT) 23 0-31 U/L Triglyceride 164 H <150 mg/dL Desirable Triglyceride: less than 150 mg/dL Borderline High Triglyceride 150-199 mg/dL High Triglyceride: 200-499 mg/dL Very High Triglyceride: greater than or equal to 5OO mg/dL Cholesterol 169 <200 mg/dL Desirable Cholesterol: less than 200 mg/dL Borderline High Cholesterol: 200-239 mg/dL High Cholesterol: greater than 239 mg/dL LDL Calculated 95 <100 mg/dL Desirable LDL: less than 100 mg/dL Near Optimal/Above Optimal LDL: 110-129 mg/dL Borderline High LDL: 130-159 mg/dL High LDL: 160-189 mg/dL Very High LDL: greater than or equal to 190 mg/dL HDL 42 >40 mg/dL Desirable HDL: greater than 40 mg/dL Note: This HDL assay may give artificially low results in patients with liver disease. Vitamin D 25-OH 46.0 >30 ng/mL Health Based Reference Values* < 20 ng/mL Deficient 20-30 ng/mL Insufficient > 30 ng/mL Sufficient Coding Level of Care Code Est Pt Prev Care 40-64y(31944) Diagnoses Annual visit for general adult medical examination with abnormal findings Z00. Mixed dyslipidemia E78.2 Hyperuricemia E79.0 Bipolar affective disorder, remission status unspecified F31.9 Active/Remission status: remission status unspecified Primary osteoarthritis of left knee M17.12 Osteoarthritis type: primary Submammary intertrigo L30.4 Additional Codes DEVON-7 Assessment Billing - DEVON-7 Assessment Tool: DEVON-7 Assessment 31994 ([id number]) PHQ-9 - 16259 - PHQ-9 Billing: Yes ([id number]) Assessment & Plan Assessment & Plan (1) Annual visit for general adult medical examination with abnormal findings: Code(s): Z00.01 - Encounter for general adult medical examination with abnormal findings Plan: Reviewed recent fasting lab results with patient. Reminded to get dental cleaning every six-months and eye exam every 2 years. Advised to reschedule her screening mammogram appointment. Does not want to get any pelvic exam or Pap smear done. Up-to-date with her colonoscopy screening due again in 2028. Gets her flu vaccine and COVID booster from work, reminded to get her shingles vaccine, up-to-date with her Tdap (2) Mixed dyslipidemia: Code(s): E78.2 - Mixed hyperlipidemia Category: Medical Plan: Continue atorvastatin 20 mg daily, and reinforced importance of following a low-cholesterol diet and getting regular exercise (3) Hyperuricemia: Code(s): E79.0 - Hyperuricemia without signs of inflammatory arthritis and tophaceous disease Category: Medical Plan: Continue allopurinol (4) Bipolar disorder: Comment: Dr mclaughlin at [facility] Code(s): F31.9 - Bipolar disorder, unspecified Category: Medical Qualifiers: Active/Remission status: remission status unspecified Qualified Code(s): F31.9 - Bipolar disorder, unspecified Plan: Followed at [facility] by Ramírez Mclaughlin currently on aripiprazole (5) Degenerative joint disease of left knee: Code(s): M17.12 - Unilateral primary osteoarthritis, left knee Category: Medical Qualifiers: Osteoarthritis type: primary Qualified Code(s): M17.12 - Unilateral primary osteoarthritis, left knee Plan: Takes Tylenol as needed (6) Submammary intertrigo: Code(s): L30.4 - Erythema intertrigo Plan: Prescription sent for nystatin-triamcinolone cream, to be applied sparingly to affected areas under both breasts, keep areas clean and dry at all times. Medications: New nystatin-triamcinolone 100,000-0.1 unit/g-% 1 appl topical DAILY 30 grams 0RF 10 days
--- OUTSIDE RECORDS SUMMARY | 2024-11-17 09:35 | XMS_ITS | Clinical Summary ---
Author Organization [employer] Address [address] [place] [address] [address] [place] [address] Care Team Providers Care Shearing Supervisor Name Role Phone Unavailable Primary Care Provider [...]
--- OUTSIDE RECORDS SUMMARY | 2024-11-17 09:36 | XMS_ITS | Patient Health Record ---
Author Organization [facility] Address [address] [place] [address] Care Team Providers Care Windows Deployment Technician Name Role Phone Taryn WU, Paty Black Primary Care Provider Un available JuanDiana gomez Unavailable [phone] Allergies No Known Allergies Reason For Referral [...] primary osteoarthritis of the ankle and/or foot (452059182) Primary osteoarthritis, left ankle and foot (M19.072) Active confirmed Problem Unsteady gait (43994765) Unsteady gait (R26.81) Active confirmed Problem Plantarflexion deformity of right foot (finding) (0714420601363278 ) Equinus contracture of right ankle (M24.571) Active confirmed Problem Localized, primary osteoarthritis of the ankle and/or foot (476794029) Osteoarthritis of right ankle and foot (M19.071) Active confirmed Problem Pes cavus (07469741) Pes cavus (Q66.70) Active confirmed Problem 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) ([id number] 1) Pes cavus of right foot (Q66.71) Active confirmed Problem Osteoarthritis of midtarsal joint of right foot (2792737246816351 ) Osteoarthritis of midtarsal joint of right foot (M19.071) Active confirmed Encounters Encounter Location Date Provider Diagnosis [facility] [address] [place] [address] 11/21/2023 Diana Hightower [facility] [address] 11/26/2023 Diana Hightower Plan Of Treatment Pending [...] Insured Coverage Start Date Coverage End Date [facility] [address] [address] [place] [phone] [id number] Nati Payne Self - patient is the insured Medical (General) History Medical History History ICD Code Gout Measles Mumps Chicken pox CAD Gall bladder problems Surgical History Surgery Date(Month/Year) section x / gall bladder 2015
== END 2024-11-17 09:53 | disposition home or self-care (01) ==
LOC: HO.HMCC 08:31
PROVIDERS: PCP Internal Medicine; Visit Provider Internal Medicine
DX: Z00.01 Encounter for general adult medical examination with abnormal findings (principal); E78.2 Mixed hyperlipidemia; E79.0 Hyperuricemia without signs of inflammatory arthritis and tophaceous disease; F31.9 Bipolar disorder, unspecified; M17.12 Unilateral primary osteoarthritis, left knee; L30.4 Erythema intertrigo

== ENCOUNTER → 2024-11-17 08:30 | Outpatient (BNVA) | payer OTHER, SELFPAY | PROVIDERS: PCP Internal Medicine; Visit Provider Internal Medicine | DX: Z00.01 Encounter for general adult medical examination with abnormal findings (principal); F31.9 Bipolar disorder, unspecified; E78.2 Mixed hyperlipidemia; E79.0 Hyperuricemia without signs of inflammatory arthritis and tophaceous disease; M17.12 Unilateral primary osteoarthritis, left knee; L30.4 Erythema intertrigo | CPT/HCPCS: 96127 ==

== ENCOUNTER 2025-01-15 17:44 | Emergency (ER) | payer OTHER, SELFPAY ==
--- NOTE | ~2025-01-15 | XR_ITS ---
CLINICAL HISTORY: back pain 3 views lumbar spine Comparison: None provided Findings: There is dextroscoliosis of the lumbar spine. No acute displaced fractures or dislocation. Multilevel degenerative disc disease worst from T12-L2. Multilevel facet arthropathy worst at L5-S1. Cholecystectomy clips. Right lower quadrant clip. The visualized bowel gas pattern is nonobstructive. Vascular calcifications. IMPRESSION: No acute displaced fracture of the lumbar spine. This document has been electronically signed by: Desi Power MD on 01/15/2025 19:12:41
--- NOTE | ~2025-01-15 | XR_ITS ---
CLINICAL HISTORY: back pain 3 views thoracic spine Comparison: None provided Findings: The vertebral body heights are maintained. No acute displaced fractures or dislocation. Multilevel degenerative changes of the spine characterized by osteophyte formations. IMPRESSION: No acute displaced fracture or traumatic subluxation. This document has been electronically signed by: Desi Power MD on 01/15/2025 19:06:40
[2025-01-15 18:00] VITALS: BP 140/68; PULSE 65; RESP 18; TEMP 36.8; O2SAT 96; BMI 32.3
--- NOTE | 2025-01-15 18:04 | ED_ITS ---
HPI - General Adult General Chief complaint: Back Pain/Injury Stated complaint: Back Pain Time Seen by Provider: 01/15/25 22:05 Source: patient Limitations: no limitations History of Present Illness ED Provider: Patricia Garzon PA-C HPI narrative: 64-year-old female with a history of morbid obesity, degenerative joint disease of the knee, hyperlipidemia, bipolar disorder who presents with mid to lower back pain. Patient states she woke up yesterday, and had acute onset diffuse back pain. Pain from thoracic to lumbar region, with the radiation into bilateral lower extremities. Pain worse with position change, movement of torso. Patient can not get comfortable. Patient having difficulty ambulating secondary to the pain. Denies weakness of lower extremities, paresthesia, urinary retention or bowel incontinence. Patient lives by herself. Related Data Home Medications ?Medication ?Instructions ?Recorded ?Confirmed aripiprazole 20 mg tablet 20 mg PO BEDTIME 03/18/20 acetaminophen 650 mg 650 mg PO Q8H PRN Pain 01/1601/16/25 tablet,extended release allopurinol 300 mg tablet 300 mg PO BEDTIME 01/16/25 1 03/18/24 cholecalciferol (vitamin D3) 50 50 mcg PO BEDTIME 01/0301/16/25 mcg (2,000 unit) capsule Previous Rx's ?Medication ?Instructions ?Recorded atorvastatin 20 mg tablet 20 mg PO BEDTIME #90 tabs Allergies Allergy/AdvReac Type Severity Reaction Status Date / Time sulfamethoxazole (From Allergy Intermediate RASH Verified 01/15/25 18:01 BACTRIM) lithium (LITHIUM) AdvReac Intermediate AFFECTS Verified 01/15/25 18:01 MY KIDNEYS Review of Systems 2 Review of Systems: Yes all other systems are reviewed and are negative Constitutional: Constitutional: Denies fatigue and Denies fever(s) Musculoskeletal: Musculoskeletal: Reports back pain, Denies muscle weakness, Denies numbness, Reports radiating pain into limb and Denies tingling Neurologic: Denies numbness and Denies tingling Endocrine: Endocrine: Denies fatigue PMF Past Medical History Attestation statement: The following information was validated with the patient. Medical History (Updated 01/19/25 @ 00:01 by Background Daemon) Degenerative joint disease of left knee History of gout Plantar fasciitis Mixed dyslipidemia Acquired deformity of right foot Rosacea Vitamin D deficiency Menopause Hyperuricemia Gout Bipolar disorder Surgical History Hx of section Hx of cholecystectomy Family History Family History Father Alzheimer disease Mother Cancer Social History Social History Housing: Condominium Alcohol intake: never Patient Tobacco Use Status: Never used Tobacco e-Cigarette/Vaping Use: Never Used Second Hand Smoke Exposure: No Advance Directives Date on File: 01/15/25 service: No Current occupational status: employed 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 Current occupational exposures/hazards: No Cognitive needs: No Hearing needs: No Vision needs: Yes Physical Exam ED Vital Signs: Vital Signs - 24 hr 01/18/25 14:00 01/18/25 18:32 01/18/25 22:23 Temperature 97.7 F 97.7 F 97.5 F Pulse Rate 64 59 53 Respiratory Rate 18 20 18 Blood Pressure 136/75 129/58 L 124/51 L Pulse Oximetry 96 98 95 Oxygen Delivery Method Room Air Room Air Room Air 01/19/25 05:54 Temperature 97.8 F Pulse Rate 54 Respiratory Rate 14 Blood Pressure 135/68 Pulse Oximetry 95 Oxygen Delivery Method Room Air BMI result Body Mass Index 32.3 Const Other: Alert Orientation/consciousness: patient oriented x3 Resp Effort & Inspection: normal respiratory effort Cardio Other: Normal peripheral perfusion Skin Other: Warm dry no rash Neuro Other: Antalgic gait General: patient oriented x3, no focal motor deficits and CN's II-XI intact bilaterally Extrem Other: Strength 5/5 bilateral lower extremities, straight leg raise about 30? bilaterally, able to flex and extend from each leg, elicits pain in the low back with all range of motion activities Psych Other: Cooperative, flat affect Course Course Course Narrative: RME: 64-year-old female usually walks around presents to ED for back pain since last night. Patient states she got out of the bed and felt a pop in her low back and ever since then has had trouble walking due to pain in lower back. Patient denies any recent trauma dysuria or any abdominal nausea vomiting. X- rays ordered Reevaluation(s) Reevaluation #1: Time: 23:34 Date: 01/15/25 Provider: JEFFERSON [place] Patient in physician observation for case management needs. No acute events reported overnight.? No current issues or complaints. VS stable. Patient is pending placement at facility/pending PT/CM eval. Will continue to monitor. Time: 08:30 Date: 01/16/25 Provider: Faye Llamas PA-C Patient in physician observation for case management needs. No acute events reported overnight.? No current issues or complaints. VS stable. PT saw patient this morning: They recommend STR for maximal function gains. Patient is pending placement at facility/pending CM eval. Patient feels ketoralac is helpful and not prednisone. Will d/c prednisone and place NATIVIDAD tylenol order. Will continue to monitor. Code status is UTD. Med Rec done. 1755: Case signed out to evening JEFFERSON Lorenzo pending STR placement. Time: 18:47 Date: 01/17/25 Provider: JEFFERSON Rodríguez Patient in physician observation for case management needs. No acute events reported overnight.? No current issues or complaints. VS stable. Pending case management disposition. We will continue to monitor. 5:23 PM 01/18/2025 (Ida Sanchez NP): Physician observation continued, no overnight events reported by nursing. Case management following for disposition to short-term rehab pending insurance authorization. Patient requested to speak with this provider regarding plan of care. Patient expressed concern that she did not understand how going to short-term rehab would improve her back pain. Discussed with patient that while at short-term rehab, she will be able to participate in physical therapy which will hopefully improve her symptoms. Discussed follow up with PCP as well. Patient verbalized appreciation of this explanation and understands plan at this time. 01/19/2025 0918 Leyla Horvath PA-C ----> Observation continues. Case management continues to follow. 01/19/2025 1030 Leyla Horvath PA-C---> Observation care revealed the the patient does not meet medical necessity for hospitalization. Final disposition of discharge to [facility] discussed with the patient. Patient completed observation care at 1030 on 01/19/2025, total time spent in observation care was 3 days, 11 hours, and 41 minutes. Time: 23:34 Medications Administered Discontinued Medications Generic Name Dose Route Start Last Admin Trade Name Maurice PRN Reason Stop Dose Admin Acetaminophen 650 mg 01/16/25 18:00 01/19/25 13:12 Acetaminophen 325 Mg Tablet PO 650 mg Q6H NATIVIDAD Administration Allopurinol 300 mg 01/16/25 21:00 01/18/25 20:18 Allopurinol 300 Mg Tablet PO 300 mg BEDTIME NATIVIDAD Administration Aripiprazole 20 mg 01/16/25 21:00 01/18/25 20:18 Aripiprazole 20 Mg Tablet PO 20 mg BEDTIME NATIVIDAD Administration Atorvastatin Calcium 20 mg 01/16/25 21:00 01/18/25 20:18 Atorvastatin Calcium 20 Mg Tablet PO 20 mg BEDTIME NATIVIDAD Administration Ketorolac Tromethamine 15 mg 01/15/25 22:49 01/15/25 23:25 Ketorolac Tromethamine 15 Mg/Ml Vial IM 01/15/25 22:50 15 mg ONCE ONE Administration Ketorolac Tromethamine 10 mg 01/16/25 13:00 01/19/25 13:13 Ketorolac Tromethamine 10 Mg Tablet PO 01/21/25 12:59 10 mg Q6H NATIVIDAD Administration Methocarbamol 1,500 mg 01/15/25 22:49 01/15/25 23:25 Methocarbamol 750 Mg Tablet PO 01/15/25 22:50 1,500 mg ONCE ONE Administration Methocarbamol 1,500 mg 01/15/25 23:43 01/18/25 09:14 Methocarbamol 750 Mg Tablet PO 1,500 mg TID PRN Administration Pain, Severe (Pain Scale 7-10) Prednisone 40 mg 01/15/25 22:49 01/15/25 23:25 Prednisone 20 Mg Tablet PO 01/15/25 22:50 40 mg ONCE ONE Administration Prednisone 40 mg 01/16/25 09:00 01/16/25 08:05 Prednisone 20 Mg Tablet PO 40 mg DAILY NATIVIDAD Administration Vitamin D 50 mcg 01/16/25 21:00 01/18/25 20:18 Cholecalciferol (Vitamin D3) 25 Mcg Tablet PO 50 mcg BEDTIME NATIVIDAD Administration Medical Decision Making Medical Decision Making MDM Narrative: 64-year-old female with a history of morbid obesity, degenerative joint disease of the knee, hyperlipidemia, bipolar disorder who presents with mid to lower back pain. Patient states she woke up yesterday, and had acute onset diffuse back pain. Pain from thoracic to lumbar region, with the radiation into bilateral lower extremities. Pain worse with position change, movement of torso. Patient can not get comfortable. Patient having difficulty ambulating secondary to the pain. Denies weakness of lower extremities, paresthesia, urinary retention or bowel incontinence. Patient lives by herself. Problem: Obesity, known arthritis, psychiatric illness, lives independently History: Per patient I have considered the following differential diagnoses: Arthritic changes, compression fracture, musculoskeletal strain, lumbar radiculopathy, cauda equina Plan: X-rays ordered from triage, the patient has diffuse arthritis within the thoracic and lumbar spine, she is not having symptoms of cord compression, she admits she needs help at home, she lives by herself independently, we will hold her over for PT case management. We will add screening labs, medicating with anti-inflammatories and muscle relaxant I have independently reviewed the following tests: Labs: No leukocytosis, not anemic, no electrolyte abnormality noted X-ray thoracic spine:indings: The vertebral body heights are maintained. No acute displaced fractures or dislocation. Multilevel degenerative changes of the spine characterized by osteophyte formations. IMPRESSION: No acute displaced fracture or traumatic subluxation. X-ray lumbar spine:Findings: There is dextroscoliosis of the lumbar spine. No acute displaced fractures or dislocation. Multilevel degenerative disc disease worst from T12-L2. Multilevel facet arthropathy worst at L5-S1. Cholecystectomy clips. Right lower quadrant clip. The visualized bowel gas pattern is nonobstructive. Vascular calcifications. IMPRESSION: No acute displaced fracture of the lumbar spine. Differential Diagnosis Differential Diagnoses: The differential diagnosis associated with the presentation includes See MDM Admission/Observation Consideration of admission/observation: Escalation of care including admission/observation considered phys obs Consult Healthcare Provider Management of the patient was discussed with: Personnel Research Psychologist PT case management Lab Data MDM Lab Attestation statement: I reviewed the patient's lab results. 01/15/25 23:18 01/15/25 23:18 Labs: Lab Results 01/15/25 01/16/25 Range/Units 23:18 11:25 WBC 7.5 (4.8-10.8) X10*3/uL RBC 4.54 (4.20-5.50) X10*6/uL Hgb 12.5 (12.0-16.0) g/dl Hct 39.3 (37.0-47.0) % MCV 86.6 (80.0-98.0) fL MCH 27.5 (27.0-33.0) pg MCHC 31.8 (31.0-35.0) g/dl RDW 12.9 (11.0-16.0) % Plt Count 237 D (160-400) X10*3/uL MPV 9.2 L (9.4-12.3) fL Immature Gran % (Auto) 0.1 (0.0-0.4) % Neut % (Auto) 51.2 (45-73) % Lymph % (Auto) 41.0 H (20-40) % [place] % (Auto) 3.6 (2-11) % Eos % (Auto) 3.3 (0-4) % Baso % (Auto) 0.8 (0-2) % Lymph # (Auto) 3.1 (1.2-4.9) X10*3/uL [place] # (Auto) 0.3 (0.1-1.2) X10*3/uL Eos # (Auto) 0.3 (0.0-0.4) X10*3/uL Baso # (Auto) 0.1 (0.0-0.2) X10*3/uL Abs Immat Gran (auto) 0.01 (0.00-0.03) X10*3/uL Absolute Neuts (auto) 3.9 (2.0-8.3) x10*3/uL Absolute Nucleated RBC 0.000 (0.0-0.012) X10*3/uL Nucleated RBC % (auto) 0.0 (0.0-0.2) /100WBC Sodium 144 (135-145) mmol/L Potassium 4.4 (3.3-5.1) mmol/L Chloride 110 H (96-108) mmol/L Carbon Dioxide 24 (22-29) mmol/L Anion Gap 14 (12-20) BUN 23 H (9-16) mg/dL Creatinine 1.05 (0.5-1.4) mg/dL Estim Creat Clear Calc 61.4 Estimated GFR 53 Random Glucose 109 (60-115) mg/dL Calcium 10.1 (8.4-10.2) mg/dL COVID-19 (JUANA) Negative (Negative) COVID-19 Clin Com See Note Radiology Impression Discussion of test interpretation with radiology: I have reviewed the radiologist's reading. Discharge Plan Discharge Clinical Impression: Degenerative arthritis of thoracic spine, Arthritis of lumbar spine Patient Disposition: er SNF Transfer Details: Florentino Bronson Instructions: Lower Back Exercises (ED) Additional Instructions: IF you are prescribed home medications and/or you are taking over the counter medications at home - it is very important you continue to do so as prescribed / directed unless told otherwise. Follow up with your primary care provider. Return to the emergency department immediately if your symptoms worsen or if you develop any numbness, tingling, dizziness, shortness of breath, difficulty breathing, chest pain, blurry vision, loss of vision, nausea, vomiting, abdominal pain, fever, chills, back pain, or any other complaints. Please see the information below about our Patient Portal. If you are not yet enrolled in the [facility] Patient Portal, you will receive an enrollment email invitation following your visit to any [facility] setting. You may also self-enroll in the Patient Portal by visiting our website: [email or web address] The following information is required to access the Patient Portal: - Your [facility] Medical Record Number - Your personal home email address (must match what is in your electronic medical record, Registration staff can assist with this) - Name - Date of Capabilities of the Patient Portal: - Message some providers - View upcoming appointments - Access your health summary, medical history, and visit history - View current conditions and allergies - View procedure and lab results - View your medications, including guidelines, side effects, and precautions - Complete pre-appointment questionnaires requested by your provider - Ready summary reports of your office visits and procedures To access the Patient Portal Mobile [employer]era, follow these directions: - Search [employer] in the Humera Store or Share0 Store - Download the Humera - Search for [facility] - Enter your login/password Prescriptions: No Action atorvastatin 20 mg tablet 20 mg PO BEDTIME Qty: 90 1RF allopurinol 300 mg tablet 300 mg PO BEDTIME cholecalciferol (vitamin D3) 50 mcg (2,000 unit) capsule 50 mcg PO BEDTIME acetaminophen [Tylenol Arthritis] 650 mg Tablet Extended Release 650 mg PO Q8H PRN (Reason: Pain) aripiprazole 20 mg tablet 20 mg PO BEDTIME Patient Comments: tammy Referrals: Demian Bronson [Outside] Paty Centeno MD [Primary Care Provider, Internal Medicine] Interventions: ED Discharge Assessment Last Done: 01/19/25 14:48 Discharge Date/Time: 01/19/25 15:08 Print Language: Slovak
--- OUTSIDE RECORDS SUMMARY | 2025-01-15 21:04 | XMS_ITS | Clinical Summary ---
Author Organization [employer] Address [address] [place] [address] [address] [place] [address] Care Team Providers Care Concierge Name Role Phone Unavailable Primary Care Provider [...]
--- OUTSIDE RECORDS SUMMARY | 2025-01-15 21:04 | XMS_ITS | Patient Health Record ---
Author Organization [facility] Address [address] [place] [address] Care Team Providers Care Cheese Wrapper Name Role Phone Taryn WU, Paty Black Primary Care Provider Un available Diana Hightower Unavailable [phone] Allergies No Known Allergies Reason For Referral [...] primary osteoarthritis of the ankle and/or foot (021355061) Primary osteoarthritis, left ankle and foot (M19.072) Active confirmed Problem Unsteady gait (74562881) Unsteady gait (R26.81) Active confirmed Problem Plantarflexion deformity of right foot (finding) (3226021598515124 ) Equinus contracture of right ankle (M24.571) Active confirmed Problem Localized, primary osteoarthritis of the ankle and/or foot (308176399) Osteoarthritis of right ankle and foot (M19.071) Active confirmed Problem Pes cavus (62089313) Pes cavus (Q66.70) Active confirmed Problem 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) (1162862738324105 1) Pes cavus of right foot (Q66.71) Active confirmed Problem Osteoarthritis of midtarsal joint of right foot (0588840916168775 ) Osteoarthritis of midtarsal joint of right foot (M19.071) Active confirmed Plan Of Treatment Pending Test Test Name [...] Insured Coverage Start Date Coverage End Date [facility] [id number] [address] [address] [place] [address] [id number] Nati Payne Self - patient is the insured Medical (General) History Medical History History ICD Code Gout Measles Mumps Chicken pox CAD Gall bladder problems Surgical History Surgery Date(Month/Year) section x gall bladder 2015
[2025-01-15 21:05] VITALS: BP 124/51; PULSE 58; RESP 20; TEMP 36.6; O2SAT 97
--- NOTE | 2025-01-15 23:21 | MHC.CM.ED ---
CM met with patient to discuss discharge planning. Pt with worsening back pain. Has hx arthritis. Pt lives alone. No DME. No services. 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 Drives. She is independent. PCP is Ana Centeno. No HCP on file. HCP reviewed, completed and signed. Copies given. Uploaded into [facility] and [facility]. HCP/daughter Eleanor Petit ([phone]). Pt has [place]. Pt is agreeable to PT. Is requesting referrals to acute rehab. Pt is not interested in STR at this time. Is aware that Acute rehabs will review her records and determine if they can offer her a bed. She is aware that her insurance would need to authorize payment. Will place acute referrals.
[2025-01-15 23:22] LABS: MANUAL DIFF FLAG NO
[2025-01-15 23:27] LABS: Hematocrit 39.3 % (37.0-47.0); Hemoglobin 12.5 g/dl (12.0-16.0); Imm Gran Abs Auto 0.01 X10*3/uL (0.00-0.03); Imm Gran Pct Auto 0.1 % (0.0-0.4); Lymphocytes Absolute Auto 3.1 X10*3/uL (1.2-4.9); Mean Corpuscular HGB Conc 31.8 g/dl (31.0-35.0); Mean Corpuscular Hemoglobin 27.5 pg (27.0-33.0); Mean Corpuscular Volume 86.6 fL (80.0-98.0); NRBC Abs Auto 0.000 X10*3/uL (0.0-0.012); NRBC Pct Auto 0.0 /100WBC (0.0-0.2); Platelet Count 237 X10*3/uL (160-400); Red Blood Count 4.54 X10*6/uL (4.20-5.50); White Blood Count 7.5 X10*3/uL (4.8-10.8)
[2025-01-15 23:35] LABS: Anion Gap 14 (12-20); Blood Urea Nitrogen 23 mg/dL (9-16); Calcium 10.1 mg/dL (8.4-10.2); Carbon Dioxide 24 mmol/L (22-29); Chloride 110 mmol/L (96-108); Creatinine Clr Calc Pharmacy 61.4; Estimated Glomerular Filt Rate 53; Potassium 4.4 mmol/L (3.3-5.1); Sodium 144 mmol/L (135-145)
[2025-01-16] VITALS: BP 130/79; PULSE 66; RESP 19; TEMP 36.3; O2SAT 99
--- NOTE | 2025-01-16 00:42 | PC.NURSE ---
Patient arrived to ED OVF from main ED at ~23:55. Pt is seen this hospitalization for reported lower back pain appearing to be degenerative/arthritic in nature per imaging and provider note review. Here awaiting PT/CM consults for ? STR. Pt is A&Ox4. Pt was able to stand and pivot from the stretcher to the bed with 1-staff assist on arrival. +dp/pt pulses, +cms. -edema. Denies parasthesias. Pain reassessed on arrival rated 6/10 which pt reported as tolerable , and was offered heat packs which pt gladly accepted and placed to lower back under sheet. Pt reported +effect. Pt denies chest pain, sob, n/v, dizziness. Tolerating regular diet as ordered. [place] educated on and pt agreeable to given limited mobility/pain exacerbated with movement/OOB per pt. PW placed. Pt denies dysuria or other acute issues. Bed alarm on and safety measures in place. Call mcneill within reach and educated on use.
[2025-01-16 05:59] VITALS: BP 140/64; PULSE 69; RESP 18; TEMP 36.6; O2SAT 95
--- NOTE | 2025-01-16 09:51 | MHC.CM.ED ---
Patient remains in ER overflow. Physical therapy eval completed. Rehab is recommended. [facility] are unable to offer a bed. [facility] still reviewing. Continue to monitor for d/c needs.
[2025-01-16 10:00] VITALS: BP 131/58; PULSE 72; RESP 17; TEMP 37.1; O2SAT 94
--- NOTE | 2025-01-16 10:27 | PC.NURSE ---
Med rec completed with patient , states she takes all her meds at night
[2025-01-16 12:11] LABS: COVID-19 Test Negative (Negative); IDNOW Serial# 55D5AD1C
--- NOTE | 2025-01-16 12:31 | MHC.CM.ED ---
Addendum entered by Sara Webb 01/16/25 13:47: Multiple bed offers available. Bed offers discussed with patient. Patient accepts bed at [facility]. [facility] aware and is in the process of obtaining ins auth. Will need [facility] Level. Will submit for this now. Original Note: No acute bed offers at this time. Met with patient to explain this info. Patient originally declining STR and agreeable to d/c home. Received notification from Archana RN that patient is now agreeable to STR. Referral will be broadcasted to all facilities with 15 miles of patient's home that are contracted with patient's insurance. Bed offers will be discussed with patient. Continue to monitor for d/c needs.
[2025-01-16 18:00] VITALS: BP 142/62; PULSE 85; RESP 18; TEMP 37.1; O2SAT 93
--- NOTE | 2025-01-16 18:03 | PHA.MEDREC ---
Pharmacy Consult ? Medication Reconciliation Pharmacy reviewed med rec done by nursing. Spoke with pt and she verified her medications. Pt states she is not taking Nystatin topical anymore; nurse had confirmed that and she is taking Tylenol Arthritis 650mg tab 1 prn pain and taking a Magnesium Oxide once daily but doesn't remember the dose at this time; updated med rec according to what pt confirmed.
[2025-01-17 05:09] VITALS: BP 120/53; PULSE 64; RESP 18; TEMP 36.8; O2SAT 96
--- NOTE | 2025-01-17 05:24 | PC.NURSE ---
Assumed care of patient at 1900 in ED OVF. Patient is alert and oriented x 4. Room air Ambulating to bathroom with walker. Reports pain while repositioning and walking, PO toradol is helping her. No acute events overnight. Bed in lowest setting, locked and alarmed. Call mcneill within reach.
[2025-01-17 15:14] VITALS: BP 115/52; PULSE 52; RESP 18; TEMP 36.1; O2SAT 96
[2025-01-17 20:15] VITALS: BP 134/63; PULSE 50; RESP 20; TEMP 36.3; O2SAT 98
[2025-01-18 05:56] VITALS: BP 150/79; PULSE 53; RESP 18; TEMP 36.5; O2SAT 97
--- NOTE | 2025-01-18 10:43 | MHC.CM.PN ---
EMR REVIEWED, PER AURELIA MCCONNELL STILL AWAITING INSURANCE AUTH, CM WILL CONT TO FOLLOW.
[2025-01-18 14:00] VITALS: BP 136/75; PULSE 64; RESP 18; TEMP 36.5; O2SAT 96
[2025-01-18 18:32] VITALS: BP 129/58; PULSE 59; RESP 20; TEMP 36.5; O2SAT 98
[2025-01-18 22:23] VITALS: BP 124/51; PULSE 53; RESP 18; TEMP 36.4; O2SAT 95
[2025-01-19 05:54] VITALS: BP 135/68; PULSE 54; RESP 14; TEMP 36.6; O2SAT 95
--- NOTE | 2025-01-19 06:01 | PC.NURSE ---
Assumed care of patient at 1900. Patient is alert and oriented x 4, pleasant upon approach, calm, cooperative. She is a standby/assist x 1 with walker to bathroom. Continues to report back pain, relieved by tylenol/toradol. medicated per MAY. Assisted with repositioning throughout the night due to ongoing discomfort. Bed in lowest setting, locked and bed alarm on. Call mcneill within reach. Awaiting insurance authorization for STR
[2025-01-19 11:22] VITALS: BP 131/69; PULSE 54; RESP 16; TEMP 36.4; O2SAT 96
--- NOTE | 2025-01-19 11:55 | MHC.CM.ED ---
Patient remains in ER overflow. Insurance auth has been obtained by Demian Bronson. Amy SEXTON booked for 3pm. Med [facility] with chart. Patient, Concepción BAIN and Leyla joe. Continue to monitor for d/c needs.
[2025-01-19 14:48] VITALS: BP 131/69; PULSE 54; RESP 16; TEMP 36.4; O2SAT 96
== END 2025-01-19 15:08 | disposition skilled nursing facility (03) ==
PROVIDERS: Physician Assistant Medical; Emergency Provider Emergency Medicine; PCP Internal Medicine
DX: M47.26 Other spondylosis with radiculopathy, lumbar region (principal); M47.24 Other spondylosis with radiculopathy, thoracic region; M54.50 Low back pain, unspecified; M54.6 Pain in thoracic spine; R26.2 Difficulty in walking, not elsewhere classified; Z03.818 Encounter for observation for suspected exposure to other biological agents ruled out; Z79.899 Other long term (current) drug therapy; Z11.52 Encounter for screening for COVID-19
CPT/HCPCS: 36415; 72072; 72100; 80048; 85025; 87635; 96372; 97162; 97530; 99285; J1885

== ENCOUNTER → 2025-01-15 18:03 | Outpatient (BNV) | payer OTHER, SELFPAY | PROVIDERS: Visit Provider Student in an Organized Health Care Education/Training Program | DX: M54.9 Dorsalgia, unspecified (principal) | CPT/HCPCS: 72072; 72100 ==

== ENCOUNTER 2025-01-20 06:20 | Outpatient (REF) | payer OTHER, SELFPAY ==
[2025-01-20 06:24] LABS: MANUAL DIFF FLAG NO
[2025-01-20 06:48] LABS: Hematocrit 35.3 % (37.0-47.0); Hemoglobin 11.2 g/dl (12.0-16.0); Imm Gran Abs Auto 0.02 X10*3/uL (0.00-0.03); Imm Gran Pct Auto 0.2 % (0.0-0.4); Lymphocytes Absolute Auto 2.7 X10*3/uL (1.2-4.9); Mean Corpuscular HGB Conc 31.7 g/dl (31.0-35.0); Mean Corpuscular Hemoglobin 27.7 pg (27.0-33.0); Mean Corpuscular Volume 87.4 fL (80.0-98.0); NRBC Abs Auto 0.000 X10*3/uL (0.0-0.012); NRBC Pct Auto 0.0 /100WBC (0.0-0.2); Platelet Count 211 X10*3/uL (160-400); Red Blood Count 4.04 X10*6/uL (4.20-5.50); White Blood Count 8.7 X10*3/uL (4.8-10.8)
[2025-01-20 07:02] LABS: Alanine Aminotransferase 27 U/L (0-31); Albumin Level 3.4 g/dL (3.5-5.0); Alkaline Phosphatase 70 U/L (39-117); Anion Gap 11 (12-20); Aspartate Amino Transferase 24 U/L (5-31); Blood Urea Nitrogen 35 mg/dL (9-16); Calcium 9.3 mg/dL (8.4-10.2); Carbon Dioxide 21 mmol/L (22-29); Chloride 113 mmol/L (96-108); Estimated Glomerular Filt Rate 48; Potassium 4.1 mmol/L (3.3-5.1); Sodium 141 mmol/L (135-145); Total Protein 6.1 g/dL (6.5-8.0)
== END 2025-01-20 06:21 | disposition home or self-care (01) ==
LOC: HO.MMNH1L 06:20
PROVIDERS: Visit Provider Physician Assistant Medical
DX: Z13.89 Encounter for screening for other disorder (principal)
CPT/HCPCS: 36415; 80053; 83036; 85025

== ENCOUNTER 2025-01-26 06:47 | Outpatient (REF) | payer OTHER, SELFPAY ==
[2025-01-26 06:01] LABS: MANUAL DIFF FLAG NO
[2025-01-26 06:57] LABS: Hematocrit 37.1 % (37.0-47.0); Hemoglobin 12.0 g/dl (12.0-16.0); Imm Gran Abs Auto 0.03 X10*3/uL (0.00-0.03); Imm Gran Pct Auto 0.4 % (0.0-0.4); Lymphocytes Absolute Auto 2.4 X10*3/uL (1.2-4.9); Mean Corpuscular HGB Conc 32.3 g/dl (31.0-35.0); Mean Corpuscular Hemoglobin 27.8 pg (27.0-33.0); Mean Corpuscular Volume 85.9 fL (80.0-98.0); NRBC Abs Auto 0.000 X10*3/uL (0.0-0.012); NRBC Pct Auto 0.0 /100WBC (0.0-0.2); Platelet Count 222 X10*3/uL (160-400); Red Blood Count 4.32 X10*6/uL (4.20-5.50); White Blood Count 7.6 X10*3/uL (4.8-10.8)
[2025-01-26 07:02] LABS: Anion Gap 13 (12-20); Blood Urea Nitrogen 17 mg/dL (9-16); Calcium 9.6 mg/dL (8.4-10.2); Carbon Dioxide 20 mmol/L (22-29); Chloride 112 mmol/L (96-108); Estimated Glomerular Filt Rate 49; Potassium 4.2 mmol/L (3.3-5.1); Sodium 141 mmol/L (135-145)
--- OUTSIDE RECORDS SUMMARY | 2025-01-26 07:06 | XMS_ITS | Clinical Summary ---
Author Organization [employer] Address [address] [place] [address] [address] [place] [address] Care Team Providers Care Hospitality Director Name Role Phone Unavailable Primary Care Provider [...] of 2) 2010 COVID-19 Vaccine ( - 2024-2 6 season) 2024 Influenza Vaccine (#1) 2024 RSV [...]
--- OUTSIDE RECORDS SUMMARY | 2025-01-26 07:06 | XMS_ITS | Patient Health Record ---
Author Organization [facility] Address [address] [facility] [place] [address] Care Team Providers Care Plastic Sheets Supervisor Name Role Phone Taryn WU, Paty Black Primary Care Provider Un available JuanDiana gomez Unavailable [phone] Allergies No Known Allergies Reason For Referral [...] primary osteoarthritis of the ankle and/or foot (538840490) Primary osteoarthritis, left ankle and foot (M19.072) Active confirmed Problem Unsteady gait (95536545) Unsteady gait (R26.81) Active confirmed Problem Plantarflexion deformity of right foot (finding) (3173401950553266 ) Equinus contracture of right ankle (M24.571) Active confirmed Problem Localized, primary osteoarthritis of the ankle and/or foot (553018415) Osteoarthritis of right ankle and foot (M19.071) Active confirmed Problem Pes cavus (88212138) Pes cavus (Q66.70) Active confirmed Problem 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
== END 2025-01-26 06:48 | disposition home or self-care (01) ==
LOC: HO.MMNH1L 06:47
PROVIDERS: Visit Provider Physician Assistant Medical
DX: E78.5 Hyperlipidemia, unspecified (principal)
CPT/HCPCS: 36415; 80048; 85025

== ENCOUNTER 2025-02-02 08:48 | Outpatient (REF) | payer OTHER, SELFPAY ==
[2025-02-02 07:47] LABS: MANUAL DIFF FLAG NO
[2025-02-02 07:57] LABS: Hematocrit 38.4 % (37.0-47.0); Hemoglobin 12.4 g/dl (12.0-16.0); Imm Gran Abs Auto 0.03 X10*3/uL (0.00-0.03); Imm Gran Pct Auto 0.4 % (0.0-0.4); Lymphocytes Absolute Auto 2.6 X10*3/uL (1.2-4.9); Mean Corpuscular HGB Conc 32.3 g/dl (31.0-35.0); Mean Corpuscular Hemoglobin 27.8 pg (27.0-33.0); Mean Corpuscular Volume 86.1 fL (80.0-98.0); NRBC Abs Auto 0.000 X10*3/uL (0.0-0.012); NRBC Pct Auto 0.0 /100WBC (0.0-0.2); Platelet Count 210 X10*3/uL (160-400); Red Blood Count 4.46 X10*6/uL (4.20-5.50); White Blood Count 8.1 X10*3/uL (4.8-10.8)
[2025-02-02 08:28] LABS: Anion Gap 14 (12-20); Blood Urea Nitrogen 15 mg/dL (9-16); Calcium 9.6 mg/dL (8.4-10.2); Carbon Dioxide 20 mmol/L (22-29); Chloride 112 mmol/L (96-108); Estimated Glomerular Filt Rate > 60; Potassium 3.8 mmol/L (3.3-5.1); Sodium 142 mmol/L (135-145)
--- OUTSIDE RECORDS SUMMARY | 2025-02-02 09:41 | XMS_ITS | Clinical Summary ---
Author Organization [employer] Address [address] [place] [address] [address] [place] [address] Care Team Providers Care Electrical Tester Name Role Phone Unavailable Primary Care [...]
== END 2025-02-02 08:49 | disposition home or self-care (01) ==
LOC: HO.MMNH1L 08:48
PROVIDERS: Visit Provider Physician Assistant Medical
DX: E78.5 Hyperlipidemia, unspecified (principal)
CPT/HCPCS: 36415; 80048; 85025

== ENCOUNTER 2025-02-10 13:38 | Outpatient (AMB) | payer OTHER, SELFPAY ==
[2025-02-10 13:51] VITALS: BP 110/68; PULSE 79; RESP 16; TEMP 36.7; O2SAT 97; BMI 39.8
--- NOTE | 2025-02-10 13:51 | A.OFFPC_ITS ---
Vital Signs 02/10/25 13:51 Height 5 ft 5 in Weight 239 lb BMI 39.8 BP 110/68 Blood Pressure Location Rt brachial Position Sitting Respiration 16 Pulse 79 Pulse Source Pulse Oximeter Temp 98.0 F Temp Source Oral Pulse Oximetry (%) 97 Oxygen Delivery Method Room Air Intake Visit Reasons: lower back pain/htn Intake Note: Pt is here today for a HDF rehap/ lower back pain and HTN Product Operations Associate Required: No Allergies sulfamethoxazole (From BACTRIM) Allergy (Intermediate, Verified 02/10/25 23:21) RASH lithium (LITHIUM) Adverse Reaction (Intermediate, Verified 02/10/25 23:21) AFFECTS MY KIDNEYS Medication List - Last Reconciled 02/10/25 by Paty Centeno MD acetaminophen ER 650 mg PO Q8H PRN allopurinol 300 mg PO BEDTIME amlodipine 5 mg PO DAILY aripiprazole 20 mg PO BEDTIME atorvastatin 20 mg PO BEDTIME cholecalciferol (vitamin D3) 50 mcg PO BEDTIME methocarbamol 750 mg PO BEDTIME PRN naproxen sodium 220 mg PO BID PRN Tobacco use date assessed: 02/10/25 Fall risk assessment: 1 Fall in past year Last assessed Fall Risk: 02/10/25 Dental Screening Dental Screen Date: 02/10/25 Did you have a dental visit in the last 12 months?: Yes Did you have a dental problem in the last 6 months where you did not have access to dental care?: No Was dental information given to patient?: Patient has dentist HPI lower back pain/htn HPI Details The patient is a 64 year old female presenting for evaluation of severe lower back pain. Patient states that it was gradual onset , but become progressively worse. Had an episode of severe back pain 01/15/2025, states that this being the worst episode she has experienced. She reports the pain starts at her lower back and radiates down het leg to her foot and sometimes to her toes, and states that it felt like there something getting pinched. The patient's symptoms significantly impacted her activities of daily living; she has been unable to get out of a car, bring in groceries, or manage crucible furnace tender like taking out the trash. 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 She now requires a walker for stability and ambulation, stating she cannot walk without it, though she can manage short distances. Associated with the back pain, the patient has developed new-onset urinary incontinence, requiring her to wear pads, although she still feels the urge to urinate and maintains bowel control. Recent interventions include a two-week inpatient rehabilitation stay where she received ketorolac, methocarbamol, and physical therapy. Post-rehab, she notes only slight improvement in walking with a walker and is now receiving home physical therapy twice a week, having completed one session so far. Her past medical history includes arthritis in her feet and legs, for which she was taking Tylenol for Arthritis, though it did not help the back pain. An x-ray at the ER showed no fracture but revealed multilevel arthritis (from T12 to S1) and scoliosis in her lumbar spine. She was recently started on amlodipine 5 mg for hypertension during her rehab stay but ran out of the medication. Her blood pressure this morning was elevated at 155/79 mmHg. Recent lab work from February 02 showed a fasting glucose of 106 mg/dL, and her A1c was 5.5% in January. She is also on atorvastatin for cholesterol, which was well-controlled . Requesting to have an FMLA form completed. [facility] Medical History (Updated 02/10/25 @ 23:33 by Paty Centeno MD) Essential hypertension Lumbar back pain with radiculopathy affecting left lower extremity Degenerative joint disease of left knee History of gout Plantar fasciitis Mixed dyslipidemia Acquired deformity of right foot Rosacea Vitamin D deficiency Menopause Hyperuricemia Gout Bipolar disorder Surgical History Hx of section Hx of cholecystectomy Family History Father Alzheimer disease Mother Cancer Social History (Updated 02/10/25 @ 23:27 by Paty Centeno MD) Housing: Condominium Alcohol intake: never Patient Tobacco Use Status: Never used Tobacco e-Cigarette/Vaping Use: Never Used Second Hand Smoke Exposure: No Advance Directives Date on File: 01/15/25 service: No Current occupational status: employed 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 Current occupational exposures/hazards: No Cognitive needs: No Hearing needs: No Vision needs: Yes Questionnaire Thrive Questionnaire Date Thrive assessed: 12/09/25 I am a: Patient What is your living situation today?: I have a steady place to live Within the past 12 months, did the food you bought not last and you didn't have the money to get more?: Never true Within the past 12 months, did you worry whether your food would run out before you got money to buy more?: Never true Do you have trouble paying for medicines?: No Do you have trouble getting transportation to medical appointments?: No Do you have trouble paying your heating and electricity bill?: No Do you have trouble taking care of your child, family member or friend?: No Do you have trouble with day-to-day activities such as bathing, preparing meals, shopping, managing finances, etc.?: No Are you currently unemployed and looking for a job?: No Are you interested in more education?: No Please select the resources that you would like help with: None Currently or been in a relationship where the following occur: No concerns reported THRIVE Score: 0 AUDIT C Alcohol Use Questionnaire (AUDIT-C) 1. How often do you have a drink containing alcohol?: Never Total Score: 0 DEVON-7 AMB Questionnaire DEVON-7 Date DEVON - 7 assessed: 11/17/24 Source: Developed by Drs. Kenneth Reed, Nati Atkinson, Marvin Loco and colleagues, with an educational scott from [employer]. Review of Systems Const Reports as per HPI and Reports no additional complaints ENT Reports no additional complaints and Reports disequilibrium Card Denies chest pain, Denies rapid heart rate and Denies irregular heart rhythm Resp Reports no additional complaints GI Reports no additional complaints Reports as per HPI Musc Reports as per HPI, Reports abnormal gait, Denies joint swelling, Denies muscle weakness and Reports stiffness Skin/Breast Reports as per HPI, Denies breast pain and Denies breast mass Neuro Reports as per HPI, Reports abnormal gait and Reports disequilibrium Psych Reports no additional complaints Endo Reports no additional complaints Gil/Lymph Reports no additional complaints Aller/Immun Reports no additional complaints Physical exam (Primary Care) Vital Signs: Last Vital Signs Temp 98.0 F 02/10/25 13:51 Pulse 79 02/10/25 13:51 Resp 16 02/10/25 13:51 BP 110/68 02/10/25 13:51 Pulse Ox 97 02/10/25 13:51 Oxygen Delivery Method Room Air 02/10/25 13:51 BMI result Body Mass Index 39.8 Tobacco/Smoking Status: Tobacco use Status Tobacco use date assessed 02/10/25 02/10/25 13:59 Patient Tobacco Use Status Never used Tobacco 02/10/25 13:59 e-Cigarette/Vaping Use Never Used 02/10/25 13:59 Thrive Assessment: Date of Thrive Assessment Date Thrive assessed 10/04/23 02/10/25 13:59 Currently or been in a relationship where the following occur: No concerns reported Const General: comfortable and no acute distress Orientation/consciousness: patient oriented x3 HENMT Ears: external ears normal General nose exam: Normal external nose present Face and sinus: Yes face symmetric Eyes General: appearance normal, both eyes and all related structures Neck Neck: Yes full ROM, Yes no lymphadenopathy and Yes supple Resp Effort & Inspection: normal respiratory effort and able to speak in complete sentences Auscultation: clear to auscultation bilaterally Cardio Rate: regular rate Rhythm: regular rhythm Heart sounds: S1 normal heart sound present and S2 normal heart sound present GI Inspection: Yes obesity Palpation (GI): Soft to palpation, nontender, no guarding and no masses Auscultation: normal bowel sounds Back/Spine/Pelvis Thoracic/Lumbar Spine: pain with thoraco-lumbar ROM, paraspinal muscle tenderness bilaterally in the lower lumbar and on the left greater than right, Thoracic/lumbar scoliosis and straight leg raise positive (Left) Neuro General: patient oriented x3, gait normal, tone normal, moves all extremities, Normal light touch and pain sensation, no focal motor deficits and CN's II-XI intact bilaterally Cognition (Neuro): normal cognition Gait exam (Neuro): Assisted gait required Gait assisted method: walker Extrem Other: Right foot slightly turned inwards, no gross bony deformity, no joint swelling seen no calf tenderness General: Yes full ROM, Yes no joint enlargement, Yes no clubbing, cyanosis or edema, Yes no calf tenderness and Yes normal gait Psych Appearance: grossly normal and well kempt Mental Status: mental status grossly normal Speech and movement: Normal speech and movement present Affect: normal affect Coding Level of Care Code Est Pt Level 4 (98339) Diagnoses Lumbar back pain with radiculopathy affecting left lower extremity M54.16 Essential hypertension I10 Assessment & Plan Assessment & Plan (1) Lumbar back pain with radiculopathy affecting left lower extremity: Code(s): M54.16 - Radiculopathy, lumbar region Category: Medical Plan: Stat MRI of lumbar spine ordered without contrast. Completed FMLA form for patient and given back for them to submit. Please schedule follow-up appointment after MRI test done to discuss results and treatment options (2) Essential hypertension: Code(s): I10 - Essential (primary) hypertension Category: Medical Plan: Will continue on amlodipine 5 mg per tablet taken once a day in a.m.. Reinforced importance of adhering to a low-salt diet Orders: Orders MR lumbar spine wo con Today M54.16 - Radiculopathy, lumbar region Medications: New amlodipine 5 mg PO DAILY 90 tabs 1RF
--- OUTSIDE RECORDS SUMMARY | 2025-02-10 19:13 | XMS_ITS | Clinical Summary ---
Author Organization [employer] Address [address] [place] [address] [address] [place] [address] Care Team Providers Care Water Quality Control Engineer Name Role Phone Unavailable Primary Care Provider [...]
--- OUTSIDE RECORDS SUMMARY | 2025-02-10 19:14 | XMS_ITS | Patient Health Record ---
Author Organization [facility] Address [address] [facility] [place] [address] Care Team Providers Care Engineering Manager Electronics Name Role Phone Taryn WU, Paty Black Primary Care Provider Un available JuanDiana gomez Unavailable [phone] Allergies No Known Allergies Reason For Referral [...] primary osteoarthritis of the ankle and/or foot (681004283) Primary osteoarthritis, left ankle and foot (M19.072) Active confirmed Problem Unsteady gait (91318614) Unsteady gait (R26.81) Active confirmed Problem Plantarflexion deformity of right foot (finding) (3657390351494049 ) Equinus contracture of right ankle (M24.571) Active confirmed Problem Localized, primary osteoarthritis of the ankle and/or foot (603740790) Osteoarthritis of right ankle and foot (M19.071) Active confirmed Problem Pes cavus (75480033) Pes cavus (Q66.70) Active confirmed Problem 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
--- OUTSIDE RECORDS SUMMARY | 2025-04-03 19:00 | XMS_ITS | Clinical Summary ---
Author Organization Unknown Care Team Providers Care Elevator Repairer Apprentice Name Role Phone CHAITANYA WU, DANIEL BAIRD Unavailable Unavaila cayla PAULSON RN, LEI Unavailable Unavailable Payers Payer Name Policy Type Policy Number Effective Date Expira tion Date [facility] [id number] MEDICARE - [place] - [place] [id number] Problems Condition Name Condition Details Condition Category [...] Observation Time Observation Value Commen ts Temperature 2025-02-04 11:54:00.000 97.8 [degF] BMI (%) 2025-02-04 11:54:00.000 9 kg/m2 Height 2025-02-04 11:54:00.000 121 [in_us] Pulse 2025-02-04 11:54:00.000 68 /min Respirations 2025-02-04 11:54:00.000 18 /min Weight (lbs) 2025-02-04 11:54:00.000 200 [lb_av] Systolic Blood Pressure 2025-02-04 11:54:00.000 134 mm [Hg] Diastolic Blood Pressure 2025-02-04 11:54:00.000 [...] AWARENESS FOR SAFETY AND WILL NOTIFY CLINICAL MAJOR ASSEMBLER AND PHYSICIAN/PROVIDER WITH ANY CHANGE IN CONDITION. [code = SKILLED NURSE WILL MAINTAIN SITUATIONAL AWARENESS FOR SAFETY AND WILL NOTIFY CLINICAL MAJOR ASSEMBLER AND PHYSICIAN/PROVIDER WITH ANY CHANGE IN CONDITION.] Future Scheduled Test SKILLED NU RSE TO PROVIDE INSTRUCTION TO PATIENT/CAREGIVER RELATED TO DISCHARGE PLANNING. [code = SKILLED NURSE TO PROVIDE INSTRUCTION TO PATIENT/CAREGIVER RELATED TO DISCHARGE PLANNING.] Goal Patient Goal - AMBULATION WI THOUT PAIN Goal Provider Goal - A PLAN OF CARE WILL BE ESTABLISHED THAT MEETS PATIENT'S LONGTERM NEEDS AND INCLUDES PATIENT GOAL FOR HOME [...] DISCHARGE PLANNING INSTRUCTIONS BY DATE OF DISCHARGE. Encounters Start Date/Time End Date/Time Encounter Type Admission Type Attending [facility] Care [facility] Care Department Encounter ID Discharge Date Discharge Status Discharge Condition Discharge Reason Percent Goals Met 2025-02-04 00:00:00 2025-04-04 00:00:00 Outpatient NEW ADMISSION LEI PAULSON [facility] [id number] 25.00
== END 2025-02-10 15:25 | disposition home or self-care (01) ==
LOC: HO.HMCC 13:39
PROVIDERS: PCP Internal Medicine; Visit Provider Internal Medicine
DX: M54.16 Radiculopathy, lumbar region (principal); I10 Essential (primary) hypertension

== ENCOUNTER → 2025-02-12 19:34 | Outpatient (BNV) | payer OTHER, SELFPAY | PROVIDERS: PCP Internal Medicine; Visit Provider Radiology Diagnostic Radiology | DX: M47.26 Other spondylosis with radiculopathy, lumbar region (principal); N28.1 Cyst of kidney, acquired | CPT/HCPCS: 72148 ==

== ENCOUNTER 2025-02-12 19:36 | Outpatient (REF) | payer OTHER, SELFPAY ==
--- NOTE | ~2025-02-12 | MR_ITS ---
CLINICAL HISTORY: M54.16 - Radiculopathy, lumbar region --- Additional Notes or Special Instructions: Chronic pain in lower back, with sciatica, positive straight leg raising MR lumbar spine without gadolinium Comparison: CR - XR LUMBAR SPINE 2-3V - 01/15/25 18:43 EST Findings: Trace retrolisthesis of L2 on L3. Trace anterolisthesis of L5 on S1 no acute fracture or pathologic bone lesion. Degenerative type endplate marrow changes are noted. There are multiple Schmorl's nodes. Cauda equina and conus medullaris within normal limits. L1-L2: No disc bulge or herniation. No central canal or neural foraminal narrowing. L2-L3: Mild broad-based disc bulge with minimal thecal sac effacement. No neural foraminal stenosis. L3-L4: Mild broad-based disc bulge with mild thecal sac effacement. No neural foraminal stenosis. L4-L5: Mild broad-based disc bulge. Mild facet osteoarthritis. Mild thecal sac effacement. Mild narrowing of bilateral neural foramina. L5-S1: Mild broad-based disc bulge. Moderately severe bilateral facet osteoarthritis. No significant central canal narrowing. No significant narrowing of neural foramina. Paraspinous musculature intact. There is a 1.6 cm cyst arising from the upper pole of the right kidney. It appears to have a thickened wall. IMPRESSION: 1. Multilevel spondylosis as above. 2. 1.6 cm thick-walled cyst arising from the right kidney. Recommend ultrasound evaluation when clinically appropriate. This document has been electronically signed by: Ban Lee MD on 02/12/2025 21:02:47
--- OUTSIDE RECORDS SUMMARY | 2025-02-12 23:34 | XMS_ITS | Clinical Summary ---
Author Organization [employer] Address [address] [place] [address] [address] [place] [address] Care Team Providers Care Video Systems Engineer Name Role Phone Unavailable Primary Care [...]
--- OUTSIDE RECORDS SUMMARY | 2025-02-12 23:34 | XMS_ITS | Patient Health Record ---
Author Organization [facility] Address [address] [facility] [place] [address] Care Team Providers Care Carpet Renovator Name Role Phone Taryn WU, Paty Black Primary Care Provider Un available JuanDiana gomez Unavailable [phone] Allergies No Known Allergies Reason For Referral [...] primary osteoarthritis of the ankle and/or foot (541139843) Primary osteoarthritis, left ankle and foot (M19.072) Active confirmed Problem Unsteady gait (33148753) Unsteady gait (R26.81) Active confirmed Problem Plantarflexion deformity of right foot (finding) (0646704212045350 ) Equinus contracture of right ankle (M24.571) Active confirmed Problem Localized, primary osteoarthritis of the ankle and/or foot (684749707) Osteoarthritis of right ankle and foot (M19.071) Active confirmed Problem Pes cavus (09639339) Pes cavus (Q66.70) Active confirmed Problem 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
--- OUTSIDE RECORDS SUMMARY | 2025-04-03 19:00 | XMS_ITS | Clinical Summary ---
Author Organization Unknown Care Team Providers Care Demand Planner Name Role Phone CHAITANYA WU, DANIEL BAIRD Unavailable Unavaila cayla PAULSON RN, LEI Unavailable Unavailable Payers Payer Name Policy Type Policy Number Effective Date Expira tion Date [facility] [id number] MEDICARE - [place] [id number] Problems Condition Name Condition Details Condition Category Status Onset Date Resolution Date Last Treatment Date Treating Clinician Comments HYPERLIPIDEM IA, UNSPECIFIED Active 2024-03 00:00: 00 Allergies, Adverse Reactions, Alerts Allergy Name Allergy Type Status Severity Reaction(s) Onset Date Inactive Date Treating Clinician Comments BACTRIM Propensity to adverse reactions Active 2025-02 08:16:5 6 Immunizations Ordered Immunization Name Filled Immunization Name Date Status Comments Refusal Reason INFLUENZA, TIV (INACTIVATED) 2024-12-03 00:00:00 PNEUMOCOCCAL (PPV), PPV 2024-12-03 00:00:00 Vital Signs Vital Name Observation Time Observation Value Commen ts Temperature 2025-02-11 12:25:00.000 97.9 [degF] Temperature 2025-02-04 11:54:00.000 97.8 [degF] BMI (%) 2025-02-04 11:54:00.000 9 kg/m2 Height 2025-02-04 11:54:00.000 121 [in_us] Pulse 2025-02-11 12:25:00.000 64 /min Pulse 2025-02-04 11:54:00.000 68 /min Respirations 2025-02-11 12:25:00.000 18 /min Respirations 2025-02-04 11:54:00.000 18 /min Weight (lbs) 2025-02-04 11:54:00.000 200 [lb_av] Systolic Blood Pressure 2025-02-11 12:25:00.000 134 mm [Hg] Systolic Blood Pressure 2025-02-04 11:54:00.000 134 mm [Hg] Diastolic Blood Pressure 2025-02-11 12:25:00.000 80 mm [Hg] Diastolic Blood Pressure 2025-02-04 11:54:00.000 66 mm [Hg] Plan of Treatment Planned Activity Planned Date Details Comments Future Scheduled Test SKILLED NU RSE TO EVALUATE PATIENT, IDENTIFY PRIMARY AND CO-MORBID CONDITIONS CODED PER CODING GUIDELINES, AND DEVELOP PATIENT SPECIFIC PLAN OF CARE THAT INCLUDES PATIENT GOAL FOR HOME HEALTH. PLAN OF CARE TO INCLUDE 3 PRN VISIT(S) FOR OASIS DATA COLLECTION/COMPREHENSIVE ASSESSMENT AT TIMEPOINTS PER FEDERAL REGULATIONS. THIS INCLUDES VISITS FOR BALDO, RECERT, SCIC, AND/OR DC. [code = SKILLED NURSE TO EVALUATE PATIENT, IDENTIFY PRIMARY AND CO-MORBID CONDITIONS CODED PER CODING GUIDELINES, AND DEVELOP PATIENT SPECIFIC PLAN OF CARE THAT INCLUDES PATIENT GOAL FOR HOME HEALTH. PLAN OF CARE TO INCLUDE 3 PRN VISIT(S) FOR OASIS DATA COLLECTION/COMPREHENSIVE ASSESSMENT AT TIMEPOINTS PER FEDERAL REGULATIONS. THIS INCLUDES VISITS FOR BALDO, RECERT, SCIC, AND/OR DC.] Future Scheduled Test SKILLED NU RSE TO O/A OF PATIENTS MENTAL/BEHAVIORAL STATUS, ASSESS VITAL SIGNS WEEKLY. ALLOW 2 PRNS FOR MEDICATION MANAGEMENT. [code = SKILLED NURSE TO O/A OF PATIENTS MENTAL/BEHAVIORAL STATUS, ASSESS VITAL SIGNS WEEKLY. ALLOW 2 PRNS FOR MEDICATION MANAGEMENT.] Future Scheduled Test SKILLED NU RSE FOR O/A OF ALTERED MOOD [code = SKILLED NURSE FOR O/A OF ALTERED MOOD] Future Scheduled Test SKILLED NU RSE FOR O/A OF GENERAL HEALTH STATUS OF PAIN, CARDIAC, RESPIRATORY, GASTROINTESTINAL, GENITOURINARY, SKIN, NEUROLOGIC, ENDOCRINE SYSTEMS TO IDENTIFY CHANGES ASSOCIATED WITH EXACERBATION FOR EARLY INTERVENTION OF COMPLICATIONS [code = SKILLED NURSE FOR O/A OF GENERAL HEALTH STATUS OF PAIN, CARDIAC, RESPIRATORY, GASTROINTESTINAL, GENITOURINARY, SKIN, NEUROLOGIC, ENDOCRINE SYSTEMS TO IDENTIFY CHANGES ASSOCIATED WITH EXACERBATION FOR EARLY INTERVENTION OF COMPLICATIONS] Future Scheduled Test SKILLED NU RSE FOR O/A AND SKILLED TEACHING RELATED TO MANAGEMENT OF DEPRESSIVE SYMPTOMS AND/OR DEPRESSION. SN TO REPORT SIGNIFICANT CHANGE IN DEPRESSIVE SYMPTOMS TO CLINICAL PROVIDER FOR EARLY INTERVENTION. [code = SKILLED NURSE FOR O/A AND SKILLED TEACHING RELATED TO MANAGEMENT OF DEPRESSIVE SYMPTOMS AND/OR DEPRESSION. SN TO REPORT SIGNIFICANT CHANGE IN DEPRESSIVE SYMPTOMS TO CLINICAL PROVIDER FOR EARLY INTERVENTION.] Future Scheduled Test SKILLED NU RSE TO PERFORM HOME SAFETY AND FALL ASSESSMENT AND PROVIDE INSTRUCTION TO IMPLEMENT HOME SAFETY AND FALL PREVENTION STRATEGIES. [code = SKILLED NURSE TO PERFORM HOME SAFETY AND FALL ASSESSMENT AND PROVIDE INSTRUCTION TO IMPLEMENT HOME SAFETY AND FALL PREVENTION STRATEGIES.] Future Scheduled Test SKILLED NU RSE FOR OBSERVATION AND ASSESSMENT OF PATIENT S PAIN LEVEL AND EFFECTIVENESS OF PAIN MANAGEMENT REGIMEN. SKILLED NURSE TO INSTRUCT PATIENT/CAREGIVER REGARDING PHARMACOLOGIC AND NON-PHARMACOLOGIC PAIN CONTROL MEASURES. SKILLED NURSE TO REPORT TO PHYSICIAN IF PAIN IS UNCONTROLLED WITH CURRENT PAIN MANAGEMENT REGIMEN. [code = SKILLED NURSE FOR OBSERVATION AND ASSESSMENT OF PATIENT S PAIN LEVEL AND EFFECTIVENESS OF PAIN MANAGEMENT REGIMEN. SKILLED NURSE TO INSTRUCT PATIENT/CAREGIVER REGARDING PHARMACOLOGIC AND NON-PHARMACOLOGIC PAIN CONTROL MEASURES. SKILLED NURSE TO REPORT TO PHYSICIAN IF PAIN IS UNCONTROLLED WITH CURRENT PAIN MANAGEMENT REGIMEN.] Future Scheduled Test PHYSICAL T HERAPIST TO EVALUATE PATIENT FOR EVALUATION [code = PHYSICAL THERAPIST TO EVALUATE PATIENT FOR EVALUATION] Future Scheduled Test SKILLED NU RSE TO REVIEW PATIENT MEDICATIONS. INSTRUCT PATIENT/CAREGIVER ON MONITORING OF EFFECTIVENESS, ADVERSE DRUG REACTIONS, SIDE EFFECTS OF ALL MEDICATIONS (PRESCRIPTION/-OTC), AND HOW AND WHEN TO REPORT PROBLEMS. [code = SKILLED NURSE TO REVIEW PATIENT MEDICATIONS. INSTRUCT PATIENT/CAREGIVER ON MONITORING OF EFFECTIVENESS, ADVERSE DRUG REACTIONS, SIDE EFFECTS OF ALL MEDICATIONS (PRESCRIPTION/-OTC), AND HOW AND WHEN TO REPORT PROBLEMS.] Future Scheduled Test SKILLED NU RSE TO ASSESS PATIENT S PSYCHOSOCIAL STATUS TO IDENTIFY POTENTIAL ISSUES THAT MAY COMPLICATE THE PROVISION OF THE PLAN OF CARE INCLUDING THE PATIENT S ABILITY TO ACCESS COMMUNITY RESOURCES AND PSYCHOSOCIAL SUPPORT SERVICES. [code = SKILLED NURSE TO ASSESS PATIENT S PSYCHOSOCIAL STATUS TO IDENTIFY POTENTIAL ISSUES THAT MAY COMPLICATE THE PROVISION OF THE PLAN OF CARE INCLUDING THE PATIENT S ABILITY TO ACCESS COMMUNITY RESOURCES AND PSYCHOSOCIAL SUPPORT SERVICES.] Future Scheduled Test SKILLED NU RSE WILL MAINTAIN SITUATIONAL AWARENESS FOR SAFETY AND WILL NOTIFY CLINICAL TAXATION CONSULTANT AND PHYSICIAN/PROVIDER WITH ANY CHANGE IN CONDITION. [code = SKILLED NURSE WILL MAINTAIN SITUATIONAL AWARENESS FOR SAFETY AND WILL NOTIFY CLINICAL TAXATION CONSULTANT AND PHYSICIAN/PROVIDER WITH ANY CHANGE IN CONDITION.] Future Scheduled Test SKILLED NU RSE TO PROVIDE INSTRUCTION TO PATIENT/CAREGIVER RELATED TO DISCHARGE PLANNING. [code = SKILLED NURSE TO PROVIDE INSTRUCTION TO PATIENT/CAREGIVER RELATED TO DISCHARGE PLANNING.] Goal Patient Goal - AMBULATION WI THOUT PAIN Goal Provider Goal - A PLAN OF CARE WILL BE ESTABLISHED THAT MEETS PATIENT'S LONG-TERM NEEDS AND INCLUDES PATIENT GOAL FOR HOME HEALTH. Goal Provider Goal - ALTERED MENTAL/BEHAVIORAL STATUS WILL BE IDENTIFIED PROMPTLY AND INTERVENTION INITIATED QUICKLY TO MINIMIZE ASSOCIATED RISKS THROUGHOUT CERTIFICATION PERIOD. Goal Provider Goal - PATIENT WILL BE ABLE TO PERFORM DAILY FUNCTIONS AND HAVE OPTIMAL IMPROVEMENT IN MOOD STABILITY THROUGHOUT CERTIFICATION PERIOD. Goal Provider Goal - CHANGE IN GENERAL HEALTH STATUS WILL BE IDENTIFIED AND REPORTED TO PHYSICIAN FOR PROMPT INTERVENTION TO MINIMIZE ASSOCIATED RISKS THROUGHOUT CERTIFICATION PERIOD. Goal Provider Goal - PATIENT WILL REMAIN SAFE WITHOUT DECOMPENSATION IN DEPRESSIVE CONDITION, WHILE MAINTAINING OPTIMAL LEVEL OF MENTAL HEALTH AND WELL BEING THROUGHOUT CERTIFICATION PERIOD. Goal Provider Goal - PATIENT/CAREGIVER WILL VERBALIZE/DEMONSTRATE EFFECTIVE HOME SAFETY AND FALL PREVENTION STRATEGIES THROUGHOUT CERTIFICATION PERIOD. Goal Provider Goal - PATIENT/CAREGIVER WILL DEMONSTRATE UNDERSTANDING OF PHARMACOLOGIC AND NONPHARMACOLOGIC PAIN CONTROL MEASURES AND PATIENT WILL HAVE IMPROVEMENT IN PAIN INTERFERING WITH ACTIVITY EVIDENCED BY PAIN AT A LEVEL THAT IS ACCEPTABLE TO THE PATIENT AND PAIN LEVEL WITHIN ESTABLISHED PARAMETERS BY END OF CERTIFICATION PERIOD. Goal Provider Goal - A PHYSICAL THERAPY EVALUATION TO BE COMPLETED WITH RECOMMENDATIONS AND/OR WRITTEN PLAN OF TREATMENT ESTABLISHED FOR PHYSICIAN S SIGNATURE. Goal Provider Goal - PATIENT/CAREGIVER WILL VERBALIZE UNDERSTANDING OF EDUCATION PROVIDED ON MEDICATIONS BY THE END OF THE CERTIFICATION PERIOD. Goal Provider Goal - PSYCHOSOCIAL NEEDS WILL BE IDENTIFIED AND PLAN IMPLEMENTED TO MINIMIZE RISK THROUGHOUT CERTIFICATION PERIOD. Goal Provider Goal - PATIENT WILL REMAIN SAFE IN THE COMMUNITY AND WILL BE FREE OF DANGER TO SELF AND OTHERS THROUGHOUT THE CERTIFICATION PERIOD. Goal Provider Goal - PATIENT/CAREGIVER WILL VERBALIZE UNDERSTANDING OF DISCHARGE PLANNING INSTRUCTIONS BY DATE OF DISCHARGE. Progress Notes Progress Notes <paragraph>[Visit Date: 2024 by LEI PAULSON RN]:</paragraph><paragraph>NO ACUTE CHANGES IN MENTAL HEALTH, PT REPORTS COMPLIANCE WITH AM MEDS. PT REMAINS ANXIOUS, EASILY DISTRACTED. DENIES ANY ACUTE CHANGES IN MENTAL HEALTH</paragraph> Encounters Start Date/Time End Date/Time Encounter Type Admission Type Attending [facility] Facility Care Department Encounter ID Discharge Date Discharge Status Discharge Condition Discharge Reason Percent Goals Met 2025-02-04 00:00:00 2025-04-04 00:00:00 Outpatient NEW ADMISSION LEI PAULSON [facility] [id number] 3.57
--- OUTSIDE RECORDS SUMMARY | 2025-04-03 19:00 | XMS_ITS | Clinical Summary ---
Author Organization Unknown Care Team Providers Care Production Department Supervisor Name Role Phone CHAITANYA WU, DANIEL BAIRD Unavailable Unavaila cayla PAULSON RN, LEI Unavailable Unavailable Payers Payer Name Policy Type Policy Number Effective Date Expira tion Date [facility] [id number] MEDICARE - [place] - [place] [id number] Problems Condition Name Condition Details Condition Category [...] AWARENESS FOR SAFETY AND WILL NOTIFY CLINICAL LIBRARY HISTORIAN AND PHYSICIAN/PROVIDER WITH ANY CHANGE IN CONDITION. [code = SKILLED NURSE WILL MAINTAIN SITUATIONAL AWARENESS FOR SAFETY AND WILL NOTIFY CLINICAL LIBRARY HISTORIAN AND PHYSICIAN/PROVIDER WITH ANY CHANGE IN CONDITION.] Future Scheduled Test SKILLED NU RSE TO PROVIDE INSTRUCTION TO PATIENT/CAREGIVER RELATED TO DISCHARGE PLANNING. [code = SKILLED NURSE TO PROVIDE INSTRUCTION TO PATIENT/CAREGIVER RELATED TO DISCHARGE PLANNING.] Goal Patient Goal - AMBULATION WI THOUT PAIN Goal Provider Goal - A PLAN OF CARE WILL BE ESTABLISHED THAT MEETS PATIENT'S HALFWAY NEEDS AND INCLUDES PATIENT GOAL FOR HOME [...] End Date/Time Encounter Type Admission Type Attending [facility] Facility Care Department Encounter ID Discharge Date Discharge Status Discharge Condition Discharge Reason Percent Goals Met 2025-02-04 00:00:00 2025-04-04 00:00:00 Outpatient NEW ADMISSION LEI PAULSON [facility] [id number] 3.57
== END 2025-02-12 19:37 | disposition home or self-care (01) ==
LOC: HO.MRI 19:36
PROVIDERS: PCP Internal Medicine; Visit Provider Internal Medicine
DX: G89.29 Other chronic pain (principal); M54.16 Radiculopathy, lumbar region; R53.1 Weakness; R32 Unspecified urinary incontinence
CPT/HCPCS: 72148

== ENCOUNTER 2025-02-18 10:22 | Outpatient (AMB) | payer OTHER, SELFPAY ==
[2025-02-18 10:34] VITALS: BP 144/70; PULSE 65; RESP 16; TEMP 36.5; O2SAT 97; BMI 39.6
--- NOTE | 2025-02-18 10:34 | MHC.PC.OV ---
Vital Signs 02/18/25 10:34 Height 5 ft 5 in Weight 238 lb BMI 39.6 BP 144/70 H Blood Pressure Location Rt brachial Position Sitting Respiration 16 Pulse 65 Pulse Source Pulse Oximeter Temp 97.7 F Temp Source Oral Pulse Oximetry (%) 97 Oxygen Delivery Method Room Air Intake Visit Reasons: MRI test result discuss Intake Note: Pt is here today to discuss MRI test results Program Control Analyst Required: No Allergies sulfamethoxazole (From BACTRIM) Allergy (Intermediate, Verified 02/18/25 11:00) RASH lithium (LITHIUM) Adverse Reaction (Intermediate, Verified 02/18/25 11:00) AFFECTS MY KIDNEYS Medication List - Last Reconciled 02/18/25 by Paty Centeno MD acetaminophen ER 650 mg PO Q8H PRN allopurinol 300 mg PO BEDTIME amlodipine 5 mg PO DAILY aripiprazole 20 mg PO BEDTIME atorvastatin 20 mg PO BEDTIME cholecalciferol (vitamin D3) 50 mcg PO BEDTIME Tobacco use date assessed: 02/18/25 Fall risk assessment: No Falls in past year Last assessed Fall Risk: 02/18/25 Dental Screening Dental Screen Date: 02/10/25 Did you have a dental visit in the last 12 months?: Yes Did you have a dental problem in the last 6 months where you did not have access to dental care?: No Was dental information given to patient?: Patient has dentist HPI MRI test result discuss HPI Details The patient is a 64-year-old female presenting to discuss results of her lumbar MRI. She has been having persistent pain is located bilaterally on the sides of her lower back and radiates down both legs up to the toes, and aggravated by going up and down stairs, bending, lifting anything heavier than 10 lb. She reports her symptoms are severe enough that she can hardly walk and is currently out of work as she cannot stand for an 8-hour workday. 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 Denies any urinary or stool incontinence accompanying symptoms. She has tried physical therapy which caused more pain than relief. A recent MRI of her lumbar spine showed multilevel spondylosis and disc bulging at levels L4-L5 and L5-S1. There was also an incidental finding of 1.6 cm thick walled cyst arising from the right kidney. [facility] Medical History Essential hypertension Lumbar back pain with radiculopathy affecting left lower extremity Degenerative joint disease of left knee History of gout Plantar fasciitis Mixed dyslipidemia Acquired deformity of right foot Rosacea Vitamin D deficiency Menopause Hyperuricemia Gout Bipolar disorder Surgical History Hx of section Hx of cholecystectomy Family History Father Alzheimer disease Mother Cancer Social History Housing: Condominium Alcohol intake: never Patient Tobacco Use Status: Never used Tobacco e-Cigarette/Vaping Use: Never Used Second Hand Smoke Exposure: No Advance Directives Date on File: 01/15/25 service: No Current occupational status: employed 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 1. Little interest or pleasure in doing things: not at all 2. Feeling down, depressed, or hopeless: not at all 3. Trouble falling or staying asleep, or sleeping too much: not at all 4. Feeling tired or having little energy: not at all 5. Poor appetite or overeating: not at all 6. Feeling bad about yourself - or that you are a failure or have let yourself or your family down: not at all 7. Trouble concentrating on things, such as reading the newspaper or watching television: not at all 8. Moving or speaking so slowly that other people could have noticed. Or the opposite - being so fidgety or restless that you have been moving around a lot more than usual: not at all 9. Thoughts that you would be better off or of hurting yourself in some way: not at all Total score: 0 Depression Screening Interpretation: Negative Depression Screening Done: Yes Source: Developed by Drs. Kenneth Reed, Nati Atkinson, Marvin Loco and colleagues, with an educational scott from [employer]. Thrive Questionnaire Date Thrive assessed: 10/04/23 I am a: Patient What is your living situation today?: I have a steady place to live Within the past 12 months, did the food you bought not last and you didn't have the money to get more?: Never true Within the past 12 months, did you worry whether your food would run out before you got money to buy more?: Never true Do you have trouble paying for medicines?: No Do you have trouble getting transportation to medical appointments?: No Do you have trouble paying your heating and electricity bill?: No Do you have trouble taking care of your child, family member or friend?: No Do you have trouble with day-to-day activities such as bathing, preparing meals, shopping, managing finances, etc.?: No Are you currently unemployed and looking for a job?: No Are you interested in more education?: No Please select the resources that you would like help with: None Currently or been in a relationship where the following occur: No concerns reported THRIVE Score: 0 AUDIT C Alcohol Use Questionnaire (AUDIT-C) 1. How often do you have a drink containing alcohol?: Never Total Score: 0 DEVON-7 AMB Questionnaire DEVON-7 Date DEVON - 7 assessed: 11/17/24 Feeling nervous, anxious, or on edge: 0 = Not at all Not being able to stop or control worryin = Not at all Worrying too much about different things: 0 = Not at all Trouble relaxin = Not at all Being so restless that it is hard to sit still: 0 = Not at all Becoming easily annoyed or irritable: 0 = Not at all Feeling afraid as if something awful might happen: 0 = Not at all Total DEVON-7 score (0-4 normal; 5-9 mild; 10-14 moderate; 15-21 severe): 0 Source: Developed by Drs. Kenneth Reed, Nati Atkinson, Marvin Loco and colleagues, with an educational scott from [employer]. Review of Systems Const All systems reviewed & are unremarkable except as noted in HPI and below Physical exam (Primary Care) Vital Signs: Last Vital Signs Temp 97.7 F 02/18/25 10:34 Pulse 65 02/18/25 10:34 Resp 16 02/18/25 10:34 BP 144/70 H 02/18/25 10:34 Pulse Ox 97 02/18/25 10:34 Oxygen Delivery Method Room Air 02/18/25 10:34 BMI result Body Mass Index 39.6 Tobacco/Smoking Status: Tobacco use Status Tobacco use date assessed 02/18/25 02/18/25 10:36 Patient Tobacco Use Status Never used Tobacco 02/18/25 10:36 e-Cigarette/Vaping Use Never Used 02/18/25 10:36 PHQ-9: PHQ-9 Score PHQ-9: Total score 0 02/18/25 11:12 Depression Screening Interpretation: Negative Thrive Assessment: Date of Thrive Assessment Date Thrive assessed 10/04/23 02/18/25 10:36 Currently or been in a relationship where the following occur: No concerns reported Const General: no acute distress Orientation/consciousness: patient oriented x3 HENMT Ears: external ears normal General nose exam: Normal external nose present Face and sinus: Yes face symmetric Eyes General: appearance normal, both eyes and all related structures Neck Neck: Yes full ROM, Yes no lymphadenopathy and Yes supple Resp Effort & Inspection: normal respiratory effort and able to speak in complete sentences Auscultation: clear to auscultation bilaterally Cardio Rate: regular rate Rhythm: regular rhythm Heart sounds: S1 normal heart sound present and S2 normal heart sound present GI Inspection: Yes obesity Palpation (GI): Soft to palpation, nontender, no guarding and no masses Auscultation: normal bowel sounds Back/Spine/Pelvis Thoracic/Lumbar Spine: pain with thoraco-lumbar ROM, paraspinal muscle tenderness bilaterally in the lower lumbar and on the left greater than right, Thoracic/lumbar scoliosis and straight leg raise positive (Left) Neuro General: patient oriented x3, gait normal, tone normal, moves all extremities, Normal light touch and pain sensation, no focal motor deficits and CN's II-XI intact bilaterally Cognition (Neuro): normal cognition Gait exam (Neuro): Assisted gait required Gait assisted method: walker Extrem Other: Right foot slightly turned inwards, no gross bony deformity, no joint swelling seen no calf tenderness General: Yes full ROM, Yes no joint enlargement, Yes no clubbing, cyanosis or edema and Yes no calf tenderness Coding Level of Care Code Est Pt Level 4 (25570) Diagnoses Lumbar back pain with radiculopathy affecting left lower extremity M54.16 Renal cyst N28.1 Assessment & Plan Assessment & Plan (1) Lumbar back pain with radiculopathy affecting left lower extremity: Code(s): M54.16 - Radiculopathy, lumbar region Category: Medical Plan: Has tried physical therapy and has been taking NSAIDs which affords only temporary relief. Neuro spine referral obtained for further evaluation and management (2) Renal cyst: Code(s): N28.1 - Cyst of kidney, acquired Plan: Referred to urology for further evaluation of incidental finding right renal cyst Orders: Referrals Urology Referral N28.1 - Cyst of kidney, acquired Neuro Spine Referral M54.16 - Radiculopathy, lumbar region
--- OUTSIDE RECORDS SUMMARY | 2025-02-18 12:48 | XMS_ITS | Clinical Summary ---
Author Organization [facility] [employer] Address [address] [place] [address] [address] [place] [address] Care Team Providers Care Solutions Operator Name Role Phone Unavailable Primary Care Provider [...]
--- OUTSIDE RECORDS SUMMARY | 2025-02-18 12:48 | XMS_ITS | Patient Health Record ---
Author Organization [facility] Address [address] [place] [address] Care Team Providers Care Solid Waste Technician Name Role Phone Taryn WU, Paty Black Primary Care Provider Un available JuanDiana gomez Unavailable [phone] Allergies No Known Allergies Reason For Referral [...] primary osteoarthritis of the ankle and/or foot (727485418) Primary osteoarthritis, left ankle and foot (M19.072) Active confirmed Problem Unsteady gait (89492966) Unsteady gait (R26.81) Active confirmed Problem Plantarflexion deformity of right foot (finding) (2444996924174923 ) Equinus contracture of right ankle (M24.571) Active confirmed Problem Localized, primary osteoarthritis of the ankle and/or foot (482357992) Osteoarthritis of right ankle and foot (M19.071) Active confirmed Problem Pes cavus (31359507) Pes cavus (Q66.70) Active confirmed Problem 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
--- OUTSIDE RECORDS SUMMARY | 2025-04-03 19:00 | XMS_ITS | Clinical Summary ---
Author Organization Unknown Care Team Providers Care Sash Maker Name Role Phone CHAITANYA WU, DANIEL BAIRD Unavailable Unavaila cayla PAULSON RN, LEI Unavailable Unavailable Payers Payer Name Policy Type Policy Number Effective Date Expira tion Date [facility] [id number] MEDICARE - [place] - PDGM [id number] Problems Condition Name Condition Details Condition Category Status Onset Date Resolution Date Last Treatment Date Treating Clinician Comments HYPERLIPIDEM IA, UNSPECIFIED Active 2024-03 00:00: 00 OTHER FORMS OF SCOLIOSIS, LUMBAR REGION Active 2024-03 00:00: 00 OTHER LOW BACK PAIN Active 2024-03 00:00: 00 GOUT, UNSPECIFIED Active 2024-03 00:00: 00 BIPOLAR DISORDER, UNSPECIFIED Active 2024-03 00:00: 00 MUSCLE WASTING AND ATROPHY, NEC, MULTIPLE SITES Active 2024-03 00:00: 00 OTH PERSONAL RISK FACTORS, NOT ELSEWHERE CLASSIFIED Active 2024-03 00:00: 00 OTHER DISORDERS OF GLYCOPROTEIN METABOLISM Active 2024-03 00:00: 00 MORBID (SEVERE) OBESITY DUE TO EXCESS CALORIES Active 2024-03 00:00: 00 Allergies, Adverse Reactions, Alerts Allergy Name Allergy Type Status Severity Reaction(s) Onset Date Inactive Date Treating Clinician Comments BACTRIM Propensity to adverse reactions Active 2025-02 08:16:5 6 Medications Ordered Medication Name Filled Medication Name Start Date Stop Date Current Medication? Ordering Clinician Indication Dosage Frequency Signature (SIG) Comments Components acetaminoph en 325 mg tablet 2024-03 00:00: 00 Yes [id number] 2 tablet EVERY 6 HOURS 2 tablet EVERY 6 HOURS (route: oral) Med Classific ation: Analgesic , Anti-infl ammatory or Antipyret ic allopurinol 300 mg tablet 2024-03 00:00: 00 Yes [id number] 300 mg DAILY 300 mg DAILY (route: oral) Med Classific ation: Gout and Hyperuric emia Therapy amlodipine 5 mg tablet 2024-03 00:00: 00 Yes [id number] 5 mg DAILY 5 mg NAYAN Y (route: oral) Med Classific ation: Cardiovas cular Therapy Agents aripiprazol e 20 mg tablet 2024-03 00:00: 00 Yes [id number] 20 mg DAILY 20 mg DAILY (route: oral) Med Classific ation: Central Nervous System Agents atorvastati n 20 mg tablet 2024-03 00:00: 00 Yes [id number] 20 mg DAILY 20 mg DAILY (route: oral) Med Classific ation: Cardiovas cular Therapy Agents methocarbam ol 750 mg tablet 2024-03 00:00: 00 Yes [id number] 750 mg EVERY 8 HOURS 750 mg EVERY 8 HOURS (route: oral) Med Classific ation: Locomotor System Vitamin D3 50 mcg (2,000 unit) capsule 2024-03 00:00: 00 Yes [id number] 1 capsule DAILY 1 capsule DAILY (route: oral) Med Classific ation: Electroly te Balance-N utritiona l Products Immunizations Ordered Immunization Name Filled Immunization Name Date Status Comments Refusal Reason INFLUENZA, TIV (INACTIVATED) 2024-12-03 00:00:00 PNEUMOCOCCAL (PPV), PPV 2024-12-03 00:00:00 Vital Signs Vital Name Observation Time Observation Value Commen ts Temperature 2025-02-11 12:25:00.000 97.9 [degF] Temperature 2025-02-10 11:25:00.000 96.9 [degF] Temperature 2025-02-04 11:54:00.000 97.8 [degF] BMI (%) 2025-02-04 11:54:00.000 9 kg/m2 Height 2025-02-04 11:54:00.000 121 [in_us] Pulse 2025-02-11 12:25:00.000 64 /min Pulse 2025-02-10 11:25:00.000 60 /min Pulse 2025-02-04 11:54:00.000 68 /min Respirations 2025-02-11 12:25:00.000 18 /min Respirations 2025-02-10 11:25:00.000 16 /min Respirations 2025-02-04 11:54:00.000 18 /min Weight (lbs) 2025-02-04 11:54:00.000 200 [lb_av] Systolic Blood Pressure 2025-02-11 12:25:00.000 134 mm [Hg] Systolic Blood Pressure 2025-02-10 11:25:00.000 148 mm [Hg] Systolic Blood Pressure 2025-02-04 11:54:00.000 134 mm [Hg] Diastolic Blood Pressure 2025-02-11 12:25:00.000 80 mm [Hg] Diastolic Blood Pressure 2025-02-10 11:25:00.000 82 mm [Hg] Diastolic Blood Pressure 2025-02-04 11:54:00.000 [...] AWARENESS FOR SAFETY AND WILL NOTIFY CLINICAL TRANSPORT SPECIALIST AND PHYSICIAN/PROVIDER WITH ANY CHANGE IN CONDITION. [code = SKILLED NURSE WILL MAINTAIN SITUATIONAL AWARENESS FOR SAFETY AND WILL NOTIFY CLINICAL TRANSPORT SPECIALIST AND PHYSICIAN/PROVIDER WITH ANY CHANGE IN CONDITION.] Future Scheduled Test SKILLED NU RSE TO PROVIDE INSTRUCTION TO PATIENT/CAREGIVER RELATED TO DISCHARGE PLANNING. [code = SKILLED NURSE TO PROVIDE INSTRUCTION TO PATIENT/CAREGIVER RELATED TO DISCHARGE PLANNING.] Future Scheduled Test PHYSICAL T HERAPIST TO EVALUATE PATIENT SECONDARY TO FUNCTIONAL DEFICITS/SAFETY CONCERNS. PHYSICAL THERAPY TO ESTABLISH /UPGRADE/DOWNGRADE THERAPEUTIC EXERCISE PROGRAM AND INSTRUCT PATIENT/CAREGIVER ON EXERCISE PRECAUTIONS WITH WRITTEN HOME PROGRAM. MAY INCLUDE PROM, AAROM, AROM, RROM APPROPRIATE TO IMPROVE FUNCTIONAL STRENGTH AND RANGE OF MOTION. PHYSICAL THERAPY TO INSTRUCT PATIENT/CAREGIVER ON SAFE TRANSFER TECHNIQUES USING PROPER BODY MECHANICS AND EQUIPMENT. PHYSICAL THERAPY TO INSTRUCT PATIENT/CAREGIVER ON GAIT TRAINING TECHNIQUES USING APPROPRIATE ASSISTIVE DEVICE, PROPER BODY MECHANICS TO IMPROVE MOBILITY, AND PREVENT INJURY OF PATIENT AND/OR CAREGIVER. PHYSICAL THERAPY TO ASSESS AND RECOMMEND HOME SAFETY ADAPTATIONS AND EDUCATE PATIENT /CAREGIVER ON FALL PREVENTION STRATEGIES. PHYSICAL THERAPY FOR OBSERVATION AND ASSESSMENT OF PAIN, EFFECTIVENESS OF PAIN MANAGEMENT REGIMEN AND SKILLED TEACHING RELATED TO PAIN MANAGEMENT. THERAPIST TO REPORT INCREASED PAIN LEVEL TO PHYSICIAN FOR PROMPT INTERVENTION. PHYSICAL THERAPY TO INSTRUCT PATIENT/CAREGIVER ON BALANCE AND BALANCE STRATEGIES TO IMPROVE SAFE MOBILITY AND REDUCE RISK FOR FALL AND INJURY SUMMARY OF THERAPY EVAL/ASSESSMENT FINDINGS AND REASON(S) SKILLS OF A THERAPIST ARE INDICATED: PATIENT REFERRED TO HOME CARE AFTER HOSPITAL VISIT FOR BACK PAIN RADIATING TO LOWER EXTREMITY PAIN PAST MEDICAL HISTORY INCLUDES LOW BACK PAIN, BIPOLAR, HYPERLIPIDEMIA, OBESITY, SCOLIOSIS, MUSCLE WASTING, GOUT AND DEGENERATIVE JOINT DISEASE. 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 PATIENT'S GOAL IS TO PERFORM STAIRS. PATIENT IS ALERT AND ORIENTATED WITH SOME MILD CONFUSION. SHE STANDS 5 FT 5 IN TALL WITH A WEIGHT OF 246 LB. PATIENT COMPLAINS A LOW BACK PAIN SPECIFIC. PATIENT'S VITAL SIGNS WITHIN NORMAL LIMITS BLOOD PRESSURE SLIGHTLY ELEVATED. VISION AND HEARING WITHIN NORMAL LIMITS. BILATERAL LOWER EXTREMITY PITTING EDEMA.' RANGE OF MOTION AND EXTREMITIES TIMES FOUR WITHIN FUNCTIONAL LIMITS. STRENGTH AND BILATERAL HIPS AND KNEES GROSSLY 3/5. TRANSFERS WITH ASSISTANCE TIMES ONE AMBULATING WITH FRONT-WHEELED WALKER REQUIRED ADJUSTMENT FOR PROPER FIT. TOLERATED ZERO REPETITIONS OF CHAIR RISE TEST. HOME THERAPY PROGRAM TO ADDRESS LOW BACK PAIN, STRENGTHENING, PROGRESSIVE GAIT TRAINING OFF OF WALKER AND ON STAIRS. PATIENT AGREES WITH PLAN OF CARE. [code = PHYSICAL THERAPIST TO EVALUATE PATIENT SECONDARY TO FUNCTIONAL DEFICITS/SAFETY CONCERNS. PHYSICAL THERAPY TO ESTABLISH /UPGRADE/DOWNGRADE THERAPEUTIC EXERCISE PROGRAM AND INSTRUCT PATIENT/CAREGIVER ON EXERCISE PRECAUTIONS WITH WRITTEN HOME PROGRAM. MAY INCLUDE PROM, AAROM, AROM, RROM APPROPRIATE TO IMPROVE FUNCTIONAL STRENGTH AND RANGE OF MOTION. PHYSICAL THERAPY TO INSTRUCT PATIENT/CAREGIVER ON SAFE TRANSFER TECHNIQUES USING PROPER BODY MECHANICS AND EQUIPMENT. PHYSICAL THERAPY TO INSTRUCT PATIENT/CAREGIVER ON GAIT TRAINING TECHNIQUES USING APPROPRIATE ASSISTIVE DEVICE, PROPER BODY MECHANICS TO IMPROVE MOBILITY, AND PREVENT INJURY OF PATIENT AND/OR CAREGIVER. PHYSICAL THERAPY TO ASSESS AND RECOMMEND HOME SAFETY ADAPTATIONS AND EDUCATE PATIENT /CAREGIVER ON FALL PREVENTION STRATEGIES. PHYSICAL THERAPY FOR OBSERVATION AND ASSESSMENT OF PAIN, EFFECTIVENESS OF PAIN MANAGEMENT REGIMEN AND SKILLED TEACHING RELATED TO PAIN MANAGEMENT. THERAPIST TO REPORT INCREASED PAIN LEVEL TO PHYSICIAN FOR PROMPT INTERVENTION. PHYSICAL THERAPY TO INSTRUCT PATIENT/CAREGIVER ON BALANCE AND BALANCE STRATEGIES TO IMPROVE SAFE MOBILITY AND REDUCE RISK FOR FALL AND INJURY SUMMARY OF THERAPY EVAL/ASSESSMENT FINDINGS AND REASON(S) SKILLS OF A THERAPIST ARE INDICATED: PATIENT REFERRED TO HOME CARE AFTER HOSPITAL VISIT FOR BACK PAIN RADIATING TO LOWER EXTREMITY PAIN PAST MEDICAL HISTORY INCLUDES LOW BACK PAIN, BIPOLAR, HYPERLIPIDEMIA, OBESITY, SCOLIOSIS, MUSCLE WASTING, GOUT AND DEGENERATIVE JOINT DISEASE. 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 PATIENT'S GOAL IS TO PERFORM STAIRS. PATIENT IS ALERT AND ORIENTATED WITH SOME MILD CONFUSION. SHE STANDS 5 FT 5 IN TALL WITH A WEIGHT OF 246 LB. PATIENT COMPLAINS A LOW BACK PAIN SPECIFIC. PATIENT'S VITAL SIGNS WITHIN NORMAL LIMITS BLOOD PRESSURE SLIGHTLY ELEVATED. VISION AND HEARING WITHIN NORMAL LIMITS. BILATERAL LOWER EXTREMITY PITTING EDEMA.' RANGE OF MOTION AND EXTREMITIES TIMES FOUR WITHIN FUNCTIONAL LIMITS. STRENGTH AND BILATERAL HIPS AND KNEES GROSSLY 3/5. TRANSFERS WITH ASSISTANCE TIMES ONE AMBULATING WITH FRONT-WHEELED WALKER REQUIRED ADJUSTMENT FOR PROPER FIT. TOLERATED ZERO REPETITIONS OF CHAIR RISE TEST. HOME THERAPY PROGRAM TO ADDRESS LOW BACK PAIN, STRENGTHENING, PROGRESSIVE GAIT TRAINING OFF OF WALKER AND ON STAIRS. PATIENT AGREES WITH PLAN OF CARE.] Goal Patient Goal - AMBULATION WI THOUT [...] DISCHARGE PLANNING INSTRUCTIONS BY DATE OF DISCHARGE. Goal Provider Goal - PHYSICAL THERAPY EVALUATION TO BE COMPLETED WITH RECOMMENDATIONS AND/OR WRITTEN TREATMENT PLAN OF CARE ESTABLISHED FOR THE PHYSICIAN S SIGNATURE PATIENT/CAREGIVER WILL PERFORM THERAPEUTIC EXERCISE/S AND DEMONSTRATE PARTICIPATION IN A HOME PROGRAM. PATIENT/CAREGIVER WILL DEMONSTRATE SAFE TRANSFERS USING APPROPRIATE ASSISTIVE DEVICE, BODY MECHANICS AND EQUIPMENT. PATIENT/CAREGIVER WILL DEMONSTRATE IMPROVED GAIT TECHNIQUES TO MINIMIZE RISK OF INJURY. PATIENT/CAREGIVER WILL DEMONSTRATE/VERBALIZE UNDERSTANDING OF RECOMMENDATIONS TO INCREASE SAFETY IN THE HOME AND FALL PREVENTION. INCREASED PAIN OR INEFFECTIVE PAIN CONTROL MEASURES WILL BE IDENTIFIED AND PROMPTLY REPORTED TO THE PHYSICIAN. PATIENT/CAREGIVER WILL DEMONSTRATE EFFECTIVE PAIN MANAGEMENT. PATIENT/CAREGIVER WILL DEMONSTRATE IMPROVED BALANCE AND REDUCE THE RISK OF FALLS AND INJURY. Encounters Start Date/Time End Date/Time Encounter Type Admission Type Attending [facility] Care Facility Care Department Encounter ID Discharge Date Discharge Status Discharge Condition Discharge Reason Percent Goals Met 2025-02-04 00:00:00 2025-04-04 00:00:00 Outpatient NEW ADMISSION LEI PAULSON [facility] [id number] 10.00
== END 2025-02-18 11:51 | disposition home or self-care (01) ==
LOC: HO.HMCC 10:23
PROVIDERS: PCP Internal Medicine; Visit Provider Internal Medicine
DX: M54.16 Radiculopathy, lumbar region (principal); N28.1 Cyst of kidney, acquired